=== PATIENT | male | born 1960 | race African-American/Black ===

== ENCOUNTER 2019-02-11 07:41 | Emergency (ER) | payer OTHER ==
[~2019-02-11] VITALS: Ht 165.1 cm; Wt 55.3 kg
[~2019-02-11 07:41] MED LIST: ASPIR 8181 MG ORAL; ATORVASTATIN CA20 MG ORAL; FERROUS SU15 MG/1 M1 PO; IBUPROFEN600 MG ORAL; KEPPRA500 M4 ORAL
--- NOTE | 2019-02-11 07:50 | NUR ---
ED Nurse Note: Patient walked into ED with a walker with his sister, c/o rectal bleeding since 2-3 days ago and leg/knee cramping like pain. patient's sister reports bright red blood in the stool. patient was seen by Rickie yesterday, because "patient's leg gave up and had a seizure at a bus stop." patient states he is taking his seizure medications regularly. Dr. Browning by the bedside
[2019-02-11] MEDS ORDERED: NORVASC10 MG ORAL (07:54)
[2019-02-11] MEDS ORDERED: HYDROCHLOROTHIA25 MG ORAL (07:54)
[2019-02-11] MEDS ORDERED: LEVETIRACETAM1000 MG ORAL (07:54)
--- NOTE | 2019-02-11 07:55 | NUR ---
ED Nurse Note: seizure pad applied, patient is on the monitor.
[2019-02-11 07:57] VITALS: BP 128/76
--- NOTE | 2019-02-11 08:15 | NUR ---
ED Nurse Note: april called and spoke with Jing for the KUB
[2019-02-11] MEDS ORDERED: COLACE100 MG ORAL (09:15)
[2019-02-11] MEDS ORDERED: ANUSOL-HC25 MG RECTAL (09:15)
[2019-02-11 09:32] VITALS: BP 128/76
--- NOTE | 2019-02-11 09:32 | NUR ---
ER DISCHARGE NOTE: Patient is cleared to be discharged per ERMD Dr. Browning, pt is aox4, on room air, with stable vital signs. pt was given dc and prescription instructions, pt was able to verbalize understanding, pt id band removed without complications. pt is able to ambulate with steady gait. pt took all belongings.
--- NOTE | 2019-02-11 09:52 | Emergency Room Report ---
History of Present Illness General Chief Complaint: Seizure Source: Patient, Family Member Present Illness HPI 58-year-old male presents ED for evaluation. Patient brought in by sister for evaluation. States that yesterday patient had a seizure. History of seizures and takes Keppra. States that he fell and hit his head. Was taken to [facility] ER by EMS. Also states that patient's been experiencing some rectal bleeding for the last few days. Patient was evaluated yesterday [facility] and discharged. Sister states that she does not understand why patient was discharged and came here to understand why. States that she does not know the diagnosis. States that she has discharge papers in her car. Patient states that he is compliant with his seizure meds but he believes that the CT head was negative. Patient describes straining with bowel movements. Denies any abdominal pain. Denies taking blood thinners. No other aggravating relieving factors. Denies any other associated symptoms Allergies: Coded Allergies: PENICILLINS (Verified Allergy, Unknown, 07/04/16) Patient History Past Medical History: HTN, seizures Past Surgical History: none Pertinent Family History: none Social History: Denies: smoking, alcohol use, drug use Immunizations: UTD Reviewed Nursing Documentation: PMH: Agreed; PSxH: Agreed Nursing Documentation-PMH Hx Hypertension: Yes Hx Seizures: Yes Review of Systems All Other Systems: negative except mentioned in HPI Physical Exam Vital Signs Date Time Temp Pulse Resp B/P (MAP) Pulse Ox O2 Delivery O2 Flow Rate FiO2 02/11/19 07:44 99.0 78 19 152/85 95 Room Air Sp02 EP Interpretation: reviewed, normal General Appearance: no apparent distress, alert, GCS 15, non-toxic Head: normocephalic, atraumatic Eyes: bilateral eye normal inspection, bilateral eye PERRL ENT: hearing grossly normal, normal pharynx, no angioedema, normal voice Neck: full range of motion, supple/symm/no masses Respiratory: chest non-tender, lungs clear, normal breath sounds, speaking full sentences Cardiovascular #1: regular rate, rhythm, no edema Cardiovascular #2: 2+ carotid (R), 2+ carotid (L), 2+ radial (R), 2+ radial (L) , 2+ dorsalis pedis (R), 2+ dorsalis pedis (L) Gastrointestinal: normal bowel sounds, non tender, soft, non-distended, no guarding, no rebound Rectal: hemorrhoids Genitourinary: normal inspection, no CVA tenderness Musculoskeletal: back normal, gait/station normal, normal range of motion, non- tender Neurologic: alert, oriented x3, responsive, motor strength/tone normal, sensory intact, speech normal Psychiatric: judgement/insight normal, memory normal, mood/affect normal, no suicidal/homicidal ideation Reflexes: 3+ bicep (R), 3+ bicep (L), 3+ tricep (R), 3+ tricep (L), 3+ knee (R) , 3+ knee (L) Skin: normal color, no rash, warm/dry, well hydrated Lymphatic: no adenopathy Medical Decision Making Diagnostic Impression: Primary Impression: Constipation Qualified Codes: K59.00 - Constipation, unspecified Additional Impressions: Hemorrhoids Qualified Codes: K64.9 - Unspecified hemorrhoids Seizure disorder ER Course Hospital Course 58-year-old male presents to ED status post seizure yesterday. Also complaining of blood in stool. Seen yesterday at [facility] ER Differential diagnosis includes-appendicitis, cholecystitis, small bowel obstruction, gastritis, Clinical course Patient placed on stretcher. After initial history, physical exam reveals an elderly male in no acute distress. no focal neurological deficits. Cranial nerves II through XII intact. Full range of motion in all extremities. On rectal exam there appears to be fullness but no gross blood. Sister states that patient is a very difficult IV stick and she would prefer not to repeat labs at this time. I explained that we can avoid lab work if she could provide the discharge papers Damian. . brought discharge paperwork which documents a diagnosis of seizure and mild thrombocytopenia. Patient had lab work and CT head which were within normal limits I performed a KUB here which shows significant fecal impaction. I believe his symptoms are related to constipation and hemorrhoids. I discussed these findings with the patient and sister. I do not believe repeat imaging or lab work is indicated at this time. I believe this can be treated in an outpatient setting. We will discharge with stool softeners and Anusol suppository. Patient states he has a PMD. I feel this is a highly complex case requiring extensive working including EKG/ Rhythm strip, Xray/CT/US, Blood/urine lab work, repeat exams while in ED, and administration of strong opiates/narcotics for pain control, admission to hospital or close patient follow up. Diagnosis - constipation, hemorrhoids, seizure disorder Stable and discharged to home with Rx rachel-jyoti, Colace. instructed on high- fiber diet. Followup with PMD. Return to ED if symptoms recur or worsen Other X-Ray Diagnostic Results Other X-Ray Diagnostic Results : X-Ray ordered: KUB # of Views/Limited Vs Complete: 1 View Indication: Pain EP Interpretation: Yes Interpretation: nonspecific bowel gas, no sbo, other - fecal impaction noted \ Impression: Other - constipation Electronically Signed by: Electronically signed by Sd Browning MD Last Vital Signs Date Time Temp Pulse Resp B/P (MAP) Pulse Ox O2 Delivery O2 Flow Rate FiO2 02/11/19 09:32 99.0 78 19 128/76 98 Room Air Status: improved Disposition: HOME, SELF-CARE Condition: Stable Scripts Hydrocortisone Acetate* (ANUSOL-HC*) 25 Mg Supp.rect 1 SUPP RECTAL TWICE A DAY, #10 SUPP Prov: Sd Browning MD 02/11/19 Docusate Sodium* (COLACE*) 100 Mg Capsule 100 MG ORAL THREE TIMES A DAY, #30 CAP Prov: Sd Browning MD 02/11/19 Referrals: NON PHYSICIAN (PCP) Gisel Zhao [facility] Patient Instructions: Hemorrhoids, [id number] Sd Browning MD Feb 11, 2019 09:52
--- NOTE | 2019-02-11 11:18 | Diagnostic Imaging Report ---
Indication: Abdominal pain Technique: Supine view of the abdomen Comparison: none Findings: Bowel gas pattern is unremarkable. No unusual masses or calcifications. Impression: No acute process
== END 2019-02-11 09:32 | disposition home or self-care (01) ==
LOC: EMR 08:20
DX: K59.00 Constipation, unspecified (principal); D64.9 Anemia, unspecified; G40.909 Epilepsy, unspecified, not intractable, without status epilepticus; Z88.0 Allergy status to penicillin; I10 Essential (primary) hypertension
CPT/HCPCS: 74018; 99283

== ENCOUNTER 2019-06-10 09:05 | Inpatient (IN) | payer OTHER ==
[2019-06-10] VITALS (11 sets, daily range): BP systolic 101–156; BP diastolic 70–97
[~2019-06-10] VITALS: Ht 165.1 cm; Wt 54.4 kg
[~2019-06-10 09:05] MED LIST changes: +ANUSOL-HC25 MG RECTAL; +COLACE100 MG ORAL; +HYDROCHLOROTHIA25 MG ORAL; +LEVETIRACETAM1000 MG ORAL; +NORVASC10 MG ORAL
--- NOTE | 2019-06-10 09:06 | Emergency Room Report ---
History of Present Illness General Chief Complaint: Dyspnea/Respdistress Source: Patient, Medical Record, EMS Present Illness HPI Patient is a 59-year-old male brought in by EMS after increased difficulty with breathing. Patient had been having onset of symptoms approximately 2:00 this morning. He reports having prior history of pericarditis. Patient was brought in by EMS and was given multiple doses of nitroglycerin as well as aspirin. He reportedly has prior history of seizure disorder. He states he is taken his seizure medication this morning. Patient denies any chest discomfort. He reports having some increased cough with yellow sputum. He denies any fever.Denies being a smoker. Allergies: Coded Allergies: PENICILLINS (Verified Allergy, Unknown, 07/04/16) Patient History Past Medical History: see triage record Reviewed Nursing Documentation: PMH: Agreed; PSxH: Agreed Nursing Documentation-PMH Past Medical History: No History, Except For Hx Hypertension: Yes Hx Asthma: Yes Hx Diabetes: Yes Hx Cerebrovascular Accident: Yes Hx Seizures: Yes Review of Systems All Other Systems: negative except mentioned in HPI Physical Exam Vital Signs Date Time Temp Pulse Resp B/P (MAP) Pulse Ox O2 Delivery O2 Flow Rate FiO2 06/10/19 08:58 98.1 131 20 100/49 (66) 98 Non-Rebreather 15.0 General Appearance: alert, moderate distress, thin, Chronically Ill Eyes: bilateral eye PERRL ENT: hearing grossly normal, normal voice Neck: full range of motion Respiratory: respiratory distress, accessory muscle use, wheezing Cardiovascular #1: tachycardia Gastrointestinal: normal inspection, soft Musculoskeletal: normal inspection Neurologic: normal inspection, alert, oriented x3, responsive, butter printer III-XII nml as tested Psychiatric: normal inspection Skin: other - generalized eczematous rash Procedures Intubation Intubation : Consent: Emergent Time of Intubation: 12:02 Intubation Method: orotracheal Tube Size (cm): 8.0 Medications: Rocuronium, Other - ativan Breath Sounds after Intubation: equal Intubation Complications: no complications Post Intubation Xray: Yes Attempts: One Patient Tolerated: Well Complications: None Progress floppy epiglottis which appears to be partially obstructing airway. Medical Decision Making Diagnostic Impression: Primary Impression: Seizure disorder Additional Impressions: Acute hypercapnic respiratory failure Lactic acid acidosis COPD exacerbation Epileptic seizure, generalized ER Course Patient presented for shortness of breath. Differential included but was not limited to anemia, pneumonia, pneumothorax, myocardial infarction, pericardial effusion, congestive heart failure, acidosis because of complexity of patient's case laboratory testing and imaging studies were ordered.Patient was noted to have increased shortness of breath and was noted to have some initial respiratory difficulty. This. Have gradual worsening over time. Patient subsequently decompensated and was intubated after increased stridor and difficulty with respirations. Patient will be admitted to the hospital for further monitoring and evaluation. Patient was noted to have some shaking movements and possibly some seizure activity. He had prior history of seizure disorder. Patient was noted to be hypomagnesemic and was given IV magnesium. Patient was started on IV Ativan. Patient was given IV Steroids. Patient will be admitted to Dr. Rodriguez due to panel physician. Labs Test 06/10/19 09:10 06/10/19 10:05 06/10/19 11:14 White Blood Count 8.2 K/UL (4.8-10.8) Red Blood Count 5.91 M/UL (4.70-6.10) Hemoglobin 16.8 G/DL (14.2-18.0) Hematocrit 52.1 % (42.0-52.0) Mean Corpuscular Volume 88 FL (80-99) Mean Corpuscular Hemoglobin 28.4 PG (27.0-31.0) Mean Corpuscular Hemoglobin Concent 32.2 G/DL (32.0-36.0) Red Cell Distribution Width 12.6 % (11.6-14.8) Platelet Count 181 K/UL (150-450) Mean Platelet Volume 8.1 FL (6.5-10.1) Neutrophils (%) (Auto) % (45.0-75.0) Lymphocytes (%) (Auto) % (20.0-45.0) Monocytes (%) (Auto) % (1.0-10.0) Eosinophils (%) (Auto) % (0.0-3.0) Basophils (%) (Auto) % (0.0-2.0) Differential Total Cells Counted 100 Neutrophils % (Manual) 89 % (45-75) Lymphocytes % (Manual) 7 % (20-45) Monocytes % (Manual) 4 % (1-10) Eosinophils % (Manual) 0 % (0-3) Basophils % (Manual) 0 % (0-2) Band Neutrophils 0 % (0-8) Platelet Estimate Adequate Platelet Morphology Normal Red Blood Cell Morphology Normal Sodium Level 134 MMOL/L (136-145) Potassium Level 3.9 MMOL/L (3.5-5.1) Chloride Level 99 MMOL/L (98-107) Carbon Dioxide Level 21 MMOL/L (21-32) Anion Gap 14 mmol/L (5-15) Blood Urea Nitrogen 16 mg/dL (7-18) Creatinine 1.3 MG/DL (0.55-1.30) Estimat Glomerular Filtration Rate > 60 mL/min (>60) Glucose Level 161 MG/DL (74-106) Calcium Level 10.0 MG/DL (8.5-10.1) Phosphorus Level 3.2 MG/DL (2.5-4.9) Magnesium Level 1.3 MG/DL (1.8-2.4) Total Bilirubin 0.7 MG/DL (0.2-1.0) Aspartate Amino Transf (AST/SGOT) 28 U/L (15-37) Alanine Aminotransferase (ALT/SGPT) 26 U/L (12-78) Alkaline Phosphatase 138 U/L (46-116) Total Creatine Kinase 333 U/L (26-308) Creatine Kinase MB 2.6 NG/ML (0.0-3.6) Creatine Kinase MB Relative Index 0.7 Troponin I 0.028 ng/mL (0.000-0.056) Pro-B-Type Natriuretic Peptide < 5 pg/mL (0-125) Total Protein 9.5 G/DL (6.4-8.2) Albumin 4.5 G/DL (3.4-5.0) Globulin 5.0 g/dL Urine Color Pale yellow Urine Appearance Clear Urine pH 5 (4.5-8.0) Urine Specific [place] 1.015 (1.005-1.035) Urine Protein 3+ (NEGATIVE) Urine Glucose (UA) Negative (NEGATIVE) Urine Ketones Negative (NEGATIVE) Urine Blood 1+ (NEGATIVE) Urine Nitrite Negative (NEGATIVE) Urine Bilirubin Negative (NEGATIVE) Urine Urobilinogen Normal MG/DL (0.0-1.0) Urine Leukocyte Esterase 1+ (NEGATIVE) Urine RBC 0-2 /HPF (0 - 0) Urine WBC 0-2 /HPF (0 - 0) Urine Squamous Epithelial Cells Few /LPF (NONE/OCC) Urine Bacteria Few /HPF (NONE) Lactic Acid Level 2.60 mmol/L (0.66-2.22) EKG Diagnostic Results Rate: tachycardiac Rhythm: NSR ST Segments: no acute changes Last Vital Signs Date Time Temp Pulse Resp B/P (MAP) Pulse Ox O2 Delivery O2 Flow Rate FiO2 06/10/19 08:58 98.1 131 20 100/49 (66) 98 Non-Rebreather 15.0 Status: unchanged Disposition: ADMITTED INPATIENT Jesus Kay MD Jun 10, 2019 09:06
--- NOTE | 2019-06-10 09:10 | NUR ---
ED Nurse Note: pt was brought in by ambulance from home c/o difficulty breathing started 2am this morning, pt stated he started to feel bad earlier and had a bad cough and was exaserbating. four 0.4nitroglyceryn sublingual given on the field and 1 albuterol breathing tx, pt denies chest pain. pt stated he felt better after the breathing treatment, pt noted to have hr 121. pt stated he has pericarditis and was taking 5 meds for it but unble to tell the name of the medication. ermd on bedside, RT on bedside giving nebulization. blood sent to lab, pt unbale to give urine at the moment. will continue to monitor.
[2019-06-10] MEDS ORDERED: Albuterol/Ipratropium 3ml neb HHN ONE ×2 (09:15→11:30)
--- NOTE | 2019-06-10 09:40 | Diagnostic Imaging Report ---
Indication: Short of breath Technique: One view of the chest Comparison: 07/06/2010 Findings: Lungs and pleural spaces are clear. Heart size is normal . No significant interim change Impression: No acute process
[2019-06-10 09:52] LABS: HEMATOCRIT 52.1 % (42.0-52.0); HEMOGLOBIN 16.8 G/DL (14.2-18.0); MEAN CORPUSCULAR VOLUME 88 FL (80-99); PLATELET COUNT 181 K/UL (150-450); RED BLOOD COUNT 5.91 M/UL (4.70-6.10); RED CELL DISTRIBUTION WIDTH 12.6 % (11.6-14.8); WHITE BLOOD COUNT 8.2 K/UL (4.8-10.8)
[2019-06-10] MEDS ORDERED: Azithromycin 500 MG in D5W 275 ML IVPB ONE (10:15)
[2019-06-10 10:23] LABS: APPEARANCE,URINE CLEAR; BILIRUBIN, URINE NEGATIVE (NEGATIVE); COLOR,URINE PALE YELLOW; GLUCOSE, URINE (UA) NEGATIVE (NEGATIVE); KETONES,URINE NEGATIVE (NEGATIVE); LEUKOCYTE ESTERASE ,URINE 1+ (NEGATIVE); NITRITE,URINE NEGATIVE (NEGATIVE); PH,URINE 5 (4.5-8.0); PROTEIN,URINE 3+ (NEGATIVE); UROBILINOGEN,URINE NORMAL MG/DL (0.0-1.0)
[2019-06-10 10:25] LABS: ALANINE AMINOTRANSFERASE 26 U/L (12-78); ALKALINE PHOSPHATASE 138 U/L (46-116); ANION GAP 14 mmol/L (5-15); ASPARTATE AMINO TRANSFERASE 28 U/L (15-37); BILIRUBIN,TOTAL 0.7 MG/DL (0.2-1.0); CARBON DIOXIDE 21 MMOL/L (21-32); CHLORIDE 99 MMOL/L (98-107); CKMB 2.6 NG/ML (0.0-3.6); CREATINE KINASE 333 U/L (26-308); PHOSPHORUS 3.2 MG/DL (2.5-4.9); POTASSIUM 3.9 MMOL/L (3.5-5.1); SODIUM 134 MMOL/L (136-145)
[2019-06-10 10:32] LABS: ALBUMIN 4.5 G/DL (3.4-5.0); BLOOD UREA NITROGEN 16 mg/dL (7-18); CREATININE 1.3 MG/DL (0.55-1.30)
[2019-06-10] MEDS ORDERED: Albuterol/Ipratropium 3ml neb ONE (11:28)
[2019-06-10] MEDS ORDERED: Levalbuterol Inh UD 1.25mg/0.5ml HHN ONE (11:45)
--- NOTE | 2019-06-10 11:45 | NUR ---
CONDITION CHANGE: pt complains of shortness of breath after urinating on the urinal. low 02 sat was noticed, pt is on sitting position, wheezing noted, ermd made aware and called respiratory therapist for breathing treatment.
[2019-06-10] MEDS ORDERED: LORazepam Inj 2mg/ml 1ml ONE (11:47)
--- NOTE | 2019-06-10 11:48 | NUR ---
ED Nurse Note: respiratory therapist on bedside giving nebulization, pt started to have seizure, pt 02 saturation on 89%. ermd made aware
--- NOTE | 2019-06-10 11:50 | NUR ---
ED Nurse Note: ermd verbally ordered ativan 1mg and given iv. pt stopped seizing, unable to answer question. respiratory therapist on bedside giving nebulization.
--- NOTE | 2019-06-10 11:58 | NUR ---
ED Nurse Note: ermd on bedside, rt on bedside. ermd verbally ordered rocuronium 50mg iv and was given by Rama RN, ermd inserted ET tube size 7mm on first attempt,24cm on the lower lip on the right side.wheezing auscultated on pt bilateral lungs. pt unconscious. pt HR 127.
--- NOTE | 2019-06-10 12:00 | NUR ---
ED Nurse Note: xray at bedside checking for ET placement
--- NOTE | 2019-06-10 12:01 | NUR ---
ED Nurse Note: mag SO4 ivpb started on pt right forearm iv.
[2019-06-10] MEDS ORDERED: Solu-MEDROL 125mg Inj IVP ONE (12:15)
[2019-06-10] MEDS ORDERED: LORazepam Inj 2mg/ml 1ml IV ONE ×2 (12:30→13:45)
[2019-06-10] MEDS ORDERED: Milk of Magnesia 30ml Ud ORAL PRN (13:15)
[2019-06-10] MEDS ORDERED: Cefepime HCl 2 GM in D5W 110 ML IV SCH (13:15)
[2019-06-10] MEDS ORDERED: Miralax 17gm pkt ORAL PRN (13:15)
[2019-06-10] MEDS ORDERED: Nitroglycerin Subl 0.4mg tab SL PRN (13:15)
[2019-06-10] MEDS ORDERED: Morphine Sulfate 4mg/ml Inj (IV USE ONLY) IVP PRN (13:15)
[2019-06-10] MEDS ORDERED: Morphine Sulfate 2mg/ml Inj(IV/IM USE ONLY) IVP PRN ×2 (13:15)
[2019-06-10] MEDS ORDERED: Mylanta II UD 30ml ORAL PRN (13:15)
[2019-06-10] MEDS ORDERED: Zolpidem 5mg tab ORAL PRN (13:15)
[2019-06-10] MEDS ORDERED: LORazepam Inj 2mg/ml 1ml IV PRN (13:15)
[2019-06-10] MEDS ORDERED: Acetaminophen 650 MG SUPP RECTAL PRN ×2 (13:15)
--- NOTE | 2019-06-10 13:29 | NUR ---
ED Nurse Note: recieved call from Lyly from respiratory regarding abg, pH 7.1-8,CO2 75.7 pO2 494.6 Hco3 24.5, ermd dr Matti chakraborty in ED and change the settings of the vent to, fio2 @60%, tidaL volume 650, Ac 28. pt still unconscious.
--- NOTE | 2019-06-10 13:40 | Pulmonolgy Critical Care Note ---
Critical Care - Asmt/Plan Problems: (1) Bipolar 1 disorder (2) HTN (hypertension) (3) CAD (coronary artery disease) (4) Lactic acid acidosis (5) COPD exacerbation (6) Acute hypercapnic respiratory failure (7) Ventilator dependence (8) Seizure disorder Assessment/Plan: Continue ventilatory support --> Change to AC 26 VC 600 Decrease FiO2 and PEEP to keep SaO2 > 90% RTC and PRN DUOnebs SM 40 IV BID and taper Continue Cefepime/Azithro for now, can likely D/C Cefepime in am Continue Keppra EEG Neuro eval IVF Trend LA If remains on vent tomm would start enteral feeds TTE Hep SQ FC Notes Reviewed: other - ER MD Discussed with: nurses, consultants, other - PMD Critical Care - Objective Last 24 Hour Vital Signs Date Time Temp Pulse Resp B/P (MAP) Pulse Ox O2 Delivery O2 Flow Rate FiO2 06/10/19 13:01 124 14 156/89 100 Room Air 06/10/19 12:00 128 14 119/82 100 Mechanical Ventilator 100 06/10/19 11:58 100 06/10/19 11:36 125 22 88 Nasal Cannula 2.0 28 06/10/19 09:29 112 22 100 Room Air 21 06/10/19 09:19 119 19 100 Non-Rebreather 15.0 100 06/10/19 09:19 119 19 100 Non-Rebreather 15.0 100 06/10/19 09:10 121 20 Non-Rebreather 15.0 06/10/19 09:10 98.1 121 20 133/72 98 Non-Rebreather 15.0 06/10/19 08:58 98.1 131 20 100/49 (66) 98 Non-Rebreather 15.0 Status: sedated - on vent Condition: critical HEENT: atraumatic, normocephalic Neck: full ROM Lungs: clear - but distant Heart: HR/BP stable Abdomen: soft, non-tender, active bowel sounds Extremities: no C/C/E Blood Sugars: BS controlled Critical Care - Subjective ROS Limited/Unobtainable: Yes ICU Day: 1 Intubation Day: 1 Interval Events: 59 M h/o bipolar DO, Sz DO, COPD, ? pericarditis in the past, CAD, prior OK, gout and dementia p/w SOB and hypoxemia, inc WOB in the ER, intubated, currently on AC 16 VC 500 ---> 7.13/76/494//, no visible distress, sedated on vent. + LA + GTC Sz in ER. S/P SM 125 in ER. No other hx obtainable. CS- link records reviewed as well. Condition: critical IV Access: peripheral EKG Rhythm: Sinus Tachycardia FI02: 100 Vent Support Breath Rate: 14 Vent Support Mode: AC Vent Tidal Volume: 500 Sputum Amount: None PEEP: 5.0 Secretions: None Fluids: SLIV Subjective: HELENE CXR: NAD ET-Tube: 7.0 ET Position: 24 Labs: Laboratory Tests Test 06/10/19 09:10 06/10/19 10:05 06/10/19 11:14 06/10/19 13:05 White Blood Count 8.2 K/UL (4.8-10.8) Red Blood Count 5.91 M/UL (4.70-6.10) Hemoglobin 16.8 G/DL (14.2-18.0) Hematocrit 52.1 % (42.0-52.0) H Mean Corpuscular Volume 88 FL (80-99) Mean Corpuscular Hemoglobin 28.4 PG (27.0-31.0) Mean Corpuscular Hemoglobin Concent 32.2 G/DL (32.0-36.0) Red Cell Distribution Width 12.6 % (11.6-14.8) Platelet Count 181 K/UL (150-450) Mean Platelet Volume 8.1 FL (6.5-10.1) Neutrophils (%) (Auto) % (45.0-75.0) Lymphocytes (%) (Auto) % (20.0-45.0) Monocytes (%) (Auto) % (1.0-10.0) Eosinophils (%) (Auto) % (0.0-3.0) Basophils (%) (Auto) % (0.0-2.0) Differential Total Cells Counted 100 Neutrophils % (Manual) 89 % (45-75) H Lymphocytes % (Manual) 7 % (20-45) L Monocytes % (Manual) 4 % (1-10) Eosinophils % (Manual) 0 % (0-3) Basophils % (Manual) 0 % (0-2) Band Neutrophils 0 % (0-8) Platelet Estimate Adequate Platelet Morphology Normal Red Blood Cell Morphology Normal Sodium Level 134 MMOL/L (136-145) L Potassium Level 3.9 MMOL/L (3.5-5.1) Chloride Level 99 MMOL/L (98-107) Carbon Dioxide Level 21 MMOL/L (21-32) Anion Gap 14 mmol/L (5-15) Blood Urea Nitrogen 16 mg/dL (7-18) Creatinine 1.3 MG/DL (0.55-1.30) Estimat Glomerular Filtration Rate > 60 mL/min (>60) Glucose Level 161 MG/DL (74-106) H Lactic Acid Level 3.50 mmol/L (0.4-2.0) H 2.60 mmol/L (0.66-2.22) H Calcium Level 10.0 MG/DL (8.5-10.1) Phosphorus Level 3.2 MG/DL (2.5-4.9) Magnesium Level 1.3 MG/DL (1.8-2.4) L Total Bilirubin 0.7 MG/DL (0.2-1.0) Aspartate Amino Transf (AST/SGOT) 28 U/L (15-37) Alanine Aminotransferase (ALT/SGPT) 26 U/L (12-78) Alkaline Phosphatase 138 U/L (46-116) H Total Creatine Kinase 333 U/L (26-308) H Creatine Kinase MB 2.6 NG/ML (0.0-3.6) Creatine Kinase MB Relative Index 0.7 Troponin I 0.028 ng/mL (0.000-0.056) Pro-B-Type Natriuretic Peptide < 5 pg/mL (0-125) Total Protein 9.5 G/DL (6.4-8.2) H Albumin 4.5 G/DL (3.4-5.0) Globulin 5.0 g/dL Urine Color Pale yellow Urine Appearance Clear Urine pH 5 (4.5-8.0) Urine Specific [place] 1.015 (1.005-1.035) Urine Protein 3+ (NEGATIVE) H Urine Glucose (UA) Negative (NEGATIVE) Urine Ketones Negative (NEGATIVE) Urine Blood 1+ (NEGATIVE) H Urine Nitrite Negative (NEGATIVE) Urine Bilirubin Negative (NEGATIVE) Urine Urobilinogen Normal MG/DL (0.0-1.0) Urine Leukocyte Esterase 1+ (NEGATIVE) H Urine RBC 0-2 /HPF (0 - 0) H Urine WBC 0-2 /HPF (0 - 0) Urine Squamous Epithelial Cells Few /LPF (NONE/OCC) Urine Bacteria Few /HPF (NONE) Arterial Blood pH 7.128 (7.350-7.450) Arterial Blood Partial Pressure CO2 75.7 mmHg (35.0-45.0) *H Arterial Blood Partial Pressure O2 494.6 mmHg (75.0-100.0) H Arterial Blood HCO3 24.5 mmol/L (22.0-26.0) Arterial Blood Oxygen Saturation 99.6 % (95-100) Arterial Blood Base Excess -6.5 (-2-2) L Bartolo Test Positive Agapito Chino MD Jun 10, 2019 13:40
--- NOTE | 2019-06-10 13:44 | NUR ---
ED Nurse Note: paged dr Chino to inform re pt HR 145, pvc 32. pt starting to wake up
--- NOTE | 2019-06-10 13:55 | NUR ---
ED Nurse Note: iv ativan given as per ermd order.
--- NOTE | 2019-06-10 14:20 | NUR ---
ED Nurse Note: registered veterinary technician on at bedside doing 2Dechocardiogram.
--- NOTE | 2019-06-10 14:41 | Diagnostic Imaging Report ---
Indication: Post endotracheal tube placement Technique: One view of the chest Comparison: 3 hours earlier Findings: Interim endotracheal intubation, endotracheal tube tip projecting approximately 3 cm above the kendrick. The lungs pleural spaces are clear. The heart size is normal. There is no significant interim change Impression: Satisfactory endotracheal intubation No significant change otherwise
--- NOTE | 2019-06-10 15:19 | NUR ---
ED Nurse Note: dr maher on bedside ordered to started ivf Ns to run 100ml/hour to start here in the ed. pharmacy made aware and carried out.
--- NOTE | 2019-06-10 15:40 | NUR ---
ED Nurse Note: pt was admitted to the hospital.report was given to Elisa sanchez.
--- NOTE | 2019-06-10 15:52 | NUR ---
NURSE NOTES: RECEIVED PATIENT FROM ER VIA HOSPITAL BED. REPORT GIVEN BY YAKELIN SIMEON. PATIENT IS AWAKE AND RESPONSIVE AND RESTLESS. ORALLY INTUBATED. ETT 7.5 AT 24CM LIP LINE. VENT SETTINGS OF AC 28, TV 650, FiO2 60%, PEEP 5. NO SIGNS OF DISTRESS OF THE MOMENT. IVS ON L FA G20, R FA G20 WITH IVF RUNNING NS AT 100ML/HR. PATIENT KEPT CLEAN AND DRY. THOROUGH SKIN ASSESSMENT DONE. SKIN IS INTACT. ORIENTED TO ROOM. CALL LIGHT WITHIN REACH. SIDE RAILS UP AND PADDED. BED AT LOWEST POSITION. WILL CONTINUE TO MONITOR.
--- NOTE | 2019-06-10 16:15 | History and Physical ---
History of Present Illness General Date patient seen: Jun 10, 2019 Reason for Hospitalization: Dyspnea/Respdistress Present Illness HPI Patient is intubated. History obtained through chart and ED providers Patient is a 59-year-old male brought in by EMS after increased difficulty with breathing. Patient had been having onset of symptoms approximately 2:00 this morning. He reports having prior history of pericarditis. Patient was brought in by EMS and was given multiple doses of nitroglycerin as well as aspirin. He reportedly has prior history of seizure disorder. He states he is taken his seizure medication this morning. Patient denies any chest discomfort. He reports having some increased cough with yellow sputum. He denies any fever.Denies being a smoker. While in the ED patient acutely became hypoxic and required intubation. Bystanders state he did not have active wheezing at the time. Allergies: Coded Allergies: PENICILLINS (Verified Allergy, Unknown, 07/04/16) Medication History Scheduled Amlodipine Besylate (Norvasc), 10 MG ORAL DAILY, (Reported) Aspirin* (Aspir 81*), 81 MG ORAL DAILY, (Reported) Atorvastatin Calcium* (Atorvastatin Calcium*), Unknown Dose ORAL BEDTIME, ( Reported) Docusate Sodium* (Colace*), 100 MG ORAL THREE TIMES A DAY Hydrochlorothiazide* (Hydrochlorothiazide*), 25 MG ORAL DAILY, (Reported) Hydrocortisone Acetate* (Anusol-Hc*), 1 SUPP RECTAL TWICE A DAY Levetiracetam (Keppra), Unknown Dose ORAL EVERY 12 HOURS, (Reported) Levetiracetam (Keppra), 500 MG ORAL EVERY 12 HOURS Levetiracetam (Levetiracetam), 1,000 MG ORAL TWICE A DAY, (Reported) Scheduled PRN Ibuprofen* (Motrin*), 600 MG ORAL Q8H PRN for For Pain Miscellaneous Medications Ferrous Sulfate (Ferrous Sulfate), Unknown Dose PO, (Reported) Patient History Limited by: medical condition History Provided By: Medical Record, EMS Healthcare decision maker N Resuscitation status Advanced Directive on File Review of Systems ROS Narrative UTO Physical Exam Last 24 Hour Vital Signs Date Time Temp Pulse Resp B/P (MAP) Pulse Ox O2 Delivery O2 Flow Rate FiO2 06/10/19 14:55 113 28 104/84 100 Room Air 06/10/19 14:21 117 28 117/81 100 Mechanical Ventilator 60 06/10/19 13:33 127 28 101/70 100 Room Air 06/10/19 13:32 60 06/10/19 13:28 136 29 60 06/10/19 13:01 124 14 156/89 100 Room Air 06/10/19 12:00 128 14 119/82 100 Mechanical Ventilator 100 06/10/19 11:58 128 14 100 06/10/19 11:58 100 06/10/19 11:55 122 24 99 06/10/19 11:46 119 24 98 Nasal Cannula 2.0 28 06/10/19 11:46 119 24 98 Nasal Cannula 2.0 28 06/10/19 11:45 119 22 99 Room Air 21 06/10/19 11:36 125 22 88 Nasal Cannula 2.0 28 06/10/19 09:29 112 22 100 Room Air 21 06/10/19 09:19 119 19 100 Non-Rebreather 15.0 100 06/10/19 09:19 119 19 100 Non-Rebreather 15.0 100 06/10/19 09:10 121 20 Non-Rebreather 15.0 06/10/19 09:10 98.1 121 20 133/72 98 Non-Rebreather 15.0 06/10/19 08:58 98.1 131 20 100/49 (66) 98 Non-Rebreather 15.0 Laboratory Tests Test 06/10/19 09:10 06/10/19 10:05 06/10/19 11:14 06/10/19 13:05 White Blood Count 8.2 K/UL (4.8-10.8) Red Blood Count 5.91 M/UL (4.70-6.10) Hemoglobin 16.8 G/DL (14.2-18.0) Hematocrit 52.1 % (42.0-52.0) H Mean Corpuscular Volume 88 FL (80-99) Mean Corpuscular Hemoglobin 28.4 PG (27.0-31.0) Mean Corpuscular Hemoglobin Concent 32.2 G/DL (32.0-36.0) Red Cell Distribution Width 12.6 % (11.6-14.8) Platelet Count 181 K/UL (150-450) Mean Platelet Volume 8.1 FL (6.5-10.1) Neutrophils (%) (Auto) % (45.0-75.0) Lymphocytes (%) (Auto) % (20.0-45.0) Monocytes (%) (Auto) % (1.0-10.0) Eosinophils (%) (Auto) % (0.0-3.0) Basophils (%) (Auto) % (0.0-2.0) Differential Total Cells Counted 100 Neutrophils % (Manual) 89 % (45-75) H Lymphocytes % (Manual) 7 % (20-45) L Monocytes % (Manual) 4 % (1-10) Eosinophils % (Manual) 0 % (0-3) Basophils % (Manual) 0 % (0-2) Band Neutrophils 0 % (0-8) Platelet Estimate Adequate Platelet Morphology Normal Red Blood Cell Morphology Normal Sodium Level 134 MMOL/L (136-145) L Potassium Level 3.9 MMOL/L (3.5-5.1) Chloride Level 99 MMOL/L (98-107) Carbon Dioxide Level 21 MMOL/L (21-32) Anion Gap 14 mmol/L (5-15) Blood Urea Nitrogen 16 mg/dL (7-18) Creatinine 1.3 MG/DL (0.55-1.30) Estimat Glomerular Filtration Rate > 60 mL/min (>60) Glucose Level 161 MG/DL (74-106) H Lactic Acid Level 3.50 mmol/L (0.4-2.0) H 2.60 mmol/L (0.66-2.22) H Calcium Level 10.0 MG/DL (8.5-10.1) Phosphorus Level 3.2 MG/DL (2.5-4.9) Magnesium Level 1.3 MG/DL (1.8-2.4) L Total Bilirubin 0.7 MG/DL (0.2-1.0) Aspartate Amino Transf (AST/SGOT) 28 U/L (15-37) Alanine Aminotransferase (ALT/SGPT) 26 U/L (12-78) Alkaline Phosphatase 138 U/L (46-116) H Total Creatine Kinase 333 U/L (26-308) H Creatine Kinase MB 2.6 NG/ML (0.0-3.6) Creatine Kinase MB Relative Index 0.7 Troponin I 0.028 ng/mL (0.000-0.056) Pro-B-Type Natriuretic Peptide < 5 pg/mL (0-125) Total Protein 9.5 G/DL (6.4-8.2) H Albumin 4.5 G/DL (3.4-5.0) Globulin 5.0 g/dL Urine Color Pale yellow Urine Appearance Clear Urine pH 5 (4.5-8.0) Urine Specific [place] 1.015 (1.005-1.035) Urine Protein 3+ (NEGATIVE) H Urine Glucose (UA) Negative (NEGATIVE) Urine Ketones Negative (NEGATIVE) Urine Blood 1+ (NEGATIVE) H Urine Nitrite Negative (NEGATIVE) Urine Bilirubin Negative (NEGATIVE) Urine Urobilinogen Normal MG/DL (0.0-1.0) Urine Leukocyte Esterase 1+ (NEGATIVE) H Urine RBC 0-2 /HPF (0 - 0) H Urine WBC 0-2 /HPF (0 - 0) Urine Squamous Epithelial Cells Few /LPF (NONE/OCC) Urine Bacteria Few /HPF (NONE) Arterial Blood pH 7.128 (7.350-7.450) Arterial Blood Partial Pressure CO2 75.7 mmHg (35.0-45.0) *H Arterial Blood Partial Pressure O2 494.6 mmHg (75.0-100.0) H Arterial Blood HCO3 24.5 mmol/L (22.0-26.0) Arterial Blood Oxygen Saturation 99.6 % (95-100) Arterial Blood Base Excess -6.5 (-2-2) L Bartolo Test Positive Test 06/10/19 14:53 Arterial Blood pH 7.276 (7.350-7.450) Arterial Blood Partial Pressure CO2 34.2 mmHg (35.0-45.0) L Arterial Blood Partial Pressure O2 98.1 mmHg (75.0-100.0) Arterial Blood HCO3 15.6 mmol/L (22.0-26.0) *L Arterial Blood Oxygen Saturation 96.9 % (95-100) Arterial Blood Base Excess -10.2 (-2-2) *L Bartolo Test Positive Height (Feet): 5 Height (Inches): 5.00 Weight (Pounds): 160 Medications Current Medications Medications (Trade) Dose Ordered Sig/Lara Route PRN Reason Start Time Stop Time Status Last Admin Dose Admin Acetaminophen (Tylenol) 650 mg Q4H PRN ORAL Mild Pain (Pain Scale 1-3) 06/10/19 13:15 07/10/19 13:14 Acetaminophen (Tylenol) 650 mg Q4H PRN ORAL fever 06/10/19 13:15 07/10/19 13:14 Acetaminophen (Tylenol) 650 mg Q4H PRN RECTAL Mild Pain (Pain Scale 1-3) 06/10/19 13:15 07/10/19 13:14 Acetaminophen (Tylenol) 650 mg Q4H PRN RECTAL fever 06/10/19 13:15 07/10/19 13:14 Al Hydroxide/Mg Hydroxide (Mylanta II) 30 ml Q6H PRN ORAL dyspepsia 06/10/19 13:15 07/10/19 13:14 Albuterol/ Ipratropium (Albuterol/ Ipratropium) 3 ml Q6HRT HHN 06/10/19 19:00 06/15/19 18:59 Azithromycin 500 mg/Dextrose 275 ml @ 275 mls/hr DAILY IV 06/11/19 09:00 06/18/19 08:59 Bisacodyl (Dulcolax) 10 mg DAILYPRN PRN RECTAL Constipation 06/10/19 13:15 07/10/19 13:14 Cefepime HCl 2 gm/ Dextrose 110 ml @ 220 mls/hr EVERY 8 HOURS IV 06/10/19 13:15 06/17/19 13:14 UNV Dextrose (Dextrose 50%) 25 ml Q30M PRN IV Hypoglycemia 06/10/19 13:15 07/10/19 13:14 Dextrose (Dextrose 50%) 50 ml Q30M PRN IV Hypoglycemia 06/10/19 13:15 07/10/19 13:14 Diphenhydramine HCl (Benadryl) 25 mg Q6H PRN ORAL Itching/Pruritis 06/10/19 13:15 07/10/19 13:14 Docusate Sodium (Colace) 100 mg EVERY 12 HOURS ORAL 06/10/19 21:00 07/10/19 20:59 Heparin Sodium (Porcine) (Heparin 5000 units/ml) 5,000 units EVERY 12 HOURS SUBQ 06/10/19 15:51 07/10/19 15:50 Levetiracetam 100 ml @ 400 mls/hr Q12HR@0500,1700 IVPB 06/10/19 17:00 07/10/19 16:59 Lorazepam (Ativan 2mg/ml 1ml) 0.5 mg Q4H PRN IV For Anxiety 06/10/19 13:15 06/17/19 13:14 Magnesium Hydroxide (Mom) 30 ml HSPRN PRN ORAL Constipation 06/10/19 13:15 07/10/19 13:14 Methylprednisolone Sodium Succinate (Solu-MEDROL) 40 mg EVERY 12 HOURS IVP 06/10/19 21:00 07/10/19 20:59 Morphine Sulfate (Morphine Sulfate) 1 mg Q4H PRN IVP mild pain 06/10/19 13:15 06/17/19 13:14 Morphine Sulfate (Morphine Sulfate) 2 mg Q4H PRN IVP Moderate Pain (Pain Scale 4-6) 06/10/19 13:15 06/17/19 13:14 Morphine Sulfate (Morphine Sulfate) 4 mg Q4H PRN IVP Severe Pain (Pain Scale 7-10) 06/10/19 13:15 06/17/19 13:14 Nitroglycerin (Ntg) 0.4 mg Q5M PRN SL Prn Chest Pain 06/10/19 13:15 07/10/19 13:14 Ondansetron HCl (Zofran) 4 mg Q6H PRN IVP Nausea & Vomiting 06/10/19 13:15 07/10/19 13:14 Pantoprazole (Protonix) 40 mg DAILY ORAL 06/11/19 09:00 07/11/19 08:59 Polyethylene Glycol (Miralax) 17 gm DAILYPRN PRN ORAL Constipation 06/10/19 13:15 07/10/19 13:14 Prochlorperazine (Compazine) 10 mg Q6H PRN IVP Nausea & Vomiting 06/10/19 13:15 07/10/19 13:14 Sodium Chloride 1,000 ml @ 100 mls/hr Q10H IV 06/10/19 15:15 07/10/19 15:14 06/10/19 15:16 Zolpidem Tartrate (Ambien) 5 mg HSPRN PRN ORAL Insomnia 06/10/19 13:15 06/17/19 13:14 Objective Narrative gen- twitching pectoralis and arms, intubated heent- ncat, pupils pinpoint cv- tachycardic, no m,r,g resp- ctab, no w,r,c abd- soft, non tender ext- normal muscle tone, no edema neuro- patient obtunded without sedation, twitching, pupils pinpoint Assessment/Plan Diagnosis [place] I: 59 yo M PMH of pericarditis?, COPD, seizures was intubated in ED for acute hypoxia # Acute Hypoxic and Hypercapnic Respiratory failure s/p Intubation 06/10 on admission # COPD exacerbation - cont azithro - ID consult - f/u cultures and repeat cxr in am - vent settings noted - wean vent as tolerated - echo # Lactic acidosis worsening, ddx: seizures, sepsis, s.e. of breathing treatment , - continue to monitor for s/s of ischemia - if continues tachycardia, rec to dc albuterol and cont atrovent - Gsx consult in AM - cont to trend - IVF # Seizure d/o - EEG - cont keppra - neuro consult - ct head negative # h/o Pericarditic - f/u echo as above # Hyponatremia - IV - ctm # Hypomagnesemia - replace - ctm FULL CODE 45 minutes of critical care time spent evaluating patient's vitals, exam, labs, imaging, interpretation of results, coordination of care among many specialists. Astrid Caputo DO Jun 10, 2019 16:15
--- NOTE | 2019-06-10 16:36 | Cardiology Report ---
APPROVED REPORT EXAM: Two-dimensional and M-mode echocardiogram with Doppler and color Doppler. INDICATION Congestive Heart Failure M-Mode DIMENSIONS IVSd1.1 (0.7-1.1cm)Left Atrium (MM)1.3 (1.6-4.0cm) LVDd2.0 (3.5-5.6cm)Aortic Root2.7 (2.0-3.7cm) PWd1.1 (0.7-1.1cm)Aortic Cusp Exc.1.6 (1.5-2.0cm) IVSs1.4 cm LVDs1.1 (2.5-4.0cm) PWs1.6 cm Normal left ventricular chamber size, systolic function and wall motion to extent visualized. Left ventricular ejection fraction estimated to be 60 %. No evidence of left ventricular hypertrophy. Anterior Echo-free space, may be due to pericardial fat or effusion. All other cardiac chamber sizes are within normal limits. Focal aortic valve sclerosis with adequate cusp excursion. Thickened mitral valve leaflets with normal excursion. Mitral annulus and aortic root calcification. Normal pulmonic valve structure. Normal tricuspid valve structure. IVC at size 1.9 cm without physiologic collapse,suggestive of increased RA pressure. A color flow and spectral Doppler study was performed and revealed: No aortic insufficiency. Trace mitral regurgitation. Left ventricular diastolic function not diagnostic due to arythmia . Mild tricuspid regurgitation. Tricuspid systolic velocities suggests peak right ventricular systolic pressure of 47 mmHg,consistent with moderate pulmonary hypertension.
--- NOTE | 2019-06-10 16:44 | Infectious Diseases Prog Note ---
Assessment/Plan Assessment/Plan Full consult dictated: A) 1) elevated lactic acid, ? sepsis, respiratory failure, ? pna, aspiration pna risk with cva/sz, ? cap 2) pmh noted 3) allergies - pcn, tolerated cephalosporins P) 1) vancomycin, cefepime, flagyl, azithromycin 2) check sc, labs, chest x-ray 3) iv steroids 4) vent 5) thank you Subjective Allergies: Coded Allergies: PENICILLINS (Verified Allergy, Unknown, 07/04/16) Objective Vital Signs Last 24 Hour Vital Signs Date Time Temp Pulse Resp B/P (MAP) Pulse Ox O2 Delivery O2 Flow Rate FiO2 06/10/19 14:55 113 28 104/84 100 Room Air 06/10/19 14:21 117 28 117/81 100 Mechanical Ventilator 60 06/10/19 13:33 127 28 101/70 100 Room Air 06/10/19 13:32 60 06/10/19 13:28 136 29 60 06/10/19 13:01 124 14 156/89 100 Room Air 06/10/19 12:00 128 14 119/82 100 Mechanical Ventilator 100 06/10/19 11:58 128 14 100 06/10/19 11:58 100 06/10/19 11:55 122 24 99 06/10/19 11:46 119 24 98 Nasal Cannula 2.0 28 06/10/19 11:46 119 24 98 Nasal Cannula 2.0 28 06/10/19 11:45 119 22 99 Room Air 21 06/10/19 11:36 125 22 88 Nasal Cannula 2.0 28 06/10/19 09:29 112 22 100 Room Air 06/10/19 09:19 119 19 100 Non-Rebreather 15.0 100 06/10/19 09:19 119 19 100 Non-Rebreather 15.0 100 06/10/19 09:10 121 20 Non-Rebreather 15.0 06/10/19 09:10 98.1 121 20 133/72 98 Non-Rebreather 15.0 06/10/19 08:58 98.1 131 20 100/49 (66) 98 Non-Rebreather 15.0 Height (Feet): 5 Height (Inches): 5.00 Weight (Pounds): 160 Laboratory Tests Test 06/10/19 09:10 06/10/19 10:05 06/10/19 11:14 06/10/19 13:05 White Blood Count 8.2 K/UL (4.8-10.8) Red Blood Count 5.91 M/UL (4.70-6.10) Hemoglobin 16.8 G/DL (14.2-18.0) Hematocrit 52.1 % (42.0-52.0) H Mean Corpuscular Volume 88 FL (80-99) Mean Corpuscular Hemoglobin 28.4 PG (27.0-31.0) Mean Corpuscular Hemoglobin Concent 32.2 G/DL (32.0-36.0) Red Cell Distribution Width 12.6 % (11.6-14.8) Platelet Count 181 K/UL (150-450) Mean Platelet Volume 8.1 FL (6.5-10.1) Neutrophils (%) (Auto) % (45.0-75.0) Lymphocytes (%) (Auto) % (20.0-45.0) Monocytes (%) (Auto) % (1.0-10.0) Eosinophils (%) (Auto) % (0.0-3.0) Basophils (%) (Auto) % (0.0-2.0) Differential Total Cells Counted 100 Neutrophils % (Manual) 89 % (45-75) H Lymphocytes % (Manual) 7 % (20-45) L Monocytes % (Manual) 4 % (1-10) Eosinophils % (Manual) 0 % (0-3) Basophils % (Manual) 0 % (0-2) Band Neutrophils 0 % (0-8) Platelet Estimate Adequate Platelet Morphology Normal Red Blood Cell Morphology Normal Sodium Level 134 MMOL/L (136-145) L Potassium Level 3.9 MMOL/L (3.5-5.1) Chloride Level 99 MMOL/L (98-107) Carbon Dioxide Level 21 MMOL/L (21-32) Anion Gap 14 mmol/L (5-15) Blood Urea Nitrogen 16 mg/dL (7-18) Creatinine 1.3 MG/DL (0.55-1.30) Estimat Glomerular Filtration Rate > 60 mL/min (>60) Glucose Level 161 MG/DL (74-106) H Lactic Acid Level 3.50 mmol/L (0.4-2.0) H 2.60 mmol/L (0.66-2.22) H Calcium Level 10.0 MG/DL (8.5-10.1) Phosphorus Level 3.2 MG/DL (2.5-4.9) Magnesium Level 1.3 MG/DL (1.8-2.4) L Total Bilirubin 0.7 MG/DL (0.2-1.0) Aspartate Amino Transf (AST/SGOT) 28 U/L (15-37) Alanine Aminotransferase (ALT/SGPT) 26 U/L (12-78) Alkaline Phosphatase 138 U/L (46-116) H Total Creatine Kinase 333 U/L (26-308) H Creatine Kinase MB 2.6 NG/ML (0.0-3.6) Creatine Kinase MB Relative Index 0.7 Troponin I 0.028 ng/mL (0.000-0.056) Pro-B-Type Natriuretic Peptide < 5 pg/mL (0-125) Total Protein 9.5 G/DL (6.4-8.2) H Albumin 4.5 G/DL (3.4-5.0) Globulin 5.0 g/dL Urine Color Pale yellow Urine Appearance Clear Urine pH 5 (4.5-8.0) Urine Specific [place] 1.015 (1.005-1.035) Urine Protein 3+ (NEGATIVE) H Urine Glucose (UA) Negative (NEGATIVE) Urine Ketones Negative (NEGATIVE) Urine Blood 1+ (NEGATIVE) H Urine Nitrite Negative (NEGATIVE) Urine Bilirubin Negative (NEGATIVE) Urine Urobilinogen Normal MG/DL (0.0-1.0) Urine Leukocyte Esterase 1+ (NEGATIVE) H Urine RBC 0-2 /HPF (0 - 0) H Urine WBC 0-2 /HPF (0 - 0) Urine Squamous Epithelial Cells Few /LPF (NONE/OCC) Urine Bacteria Few /HPF (NONE) Arterial Blood pH 7.128 (7.350-7.450) Arterial Blood Partial Pressure CO2 75.7 mmHg (35.0-45.0) *H Arterial Blood Partial Pressure O2 494.6 mmHg (75.0-100.0) H Arterial Blood HCO3 24.5 mmol/L (22.0-26.0) Arterial Blood Oxygen Saturation 99.6 % (95-100) Arterial Blood Base Excess -6.5 (-2-2) L Bartolo Test Positive Test 06/10/19 14:53 Arterial Blood pH 7.276 (7.350-7.450) Arterial Blood Partial Pressure CO2 34.2 mmHg (35.0-45.0) L Arterial Blood Partial Pressure O2 98.1 mmHg (75.0-100.0) Arterial Blood HCO3 15.6 mmol/L (22.0-26.0) *L Arterial Blood Oxygen Saturation 96.9 % (95-100) Arterial Blood Base Excess -10.2 (-2-2) *L Bartolo Test Positive Current Medications Medications (Trade) Dose Ordered Sig/Lara Route PRN Reason Start Time Stop Time Status Last Admin Dose Admin Acetaminophen (Tylenol) 650 mg Q4H PRN ORAL Mild Pain (Pain Scale 1-3) 06/10/19 13:15 07/10/19 13:14 Acetaminophen (Tylenol) 650 mg Q4H PRN ORAL fever 06/10/19 13:15 07/10/19 13:14 Acetaminophen (Tylenol) 650 mg Q4H PRN RECTAL Mild Pain (Pain Scale 1-3) 06/10/19 13:15 07/10/19 13:14 Acetaminophen (Tylenol) 650 mg Q4H PRN RECTAL fever 06/10/19 13:15 07/10/19 13:14 Al Hydroxide/Mg Hydroxide (Mylanta II) 30 ml Q6H PRN ORAL dyspepsia 06/10/19 13:15 07/10/19 13:14 Albuterol/ Ipratropium (Albuterol/ Ipratropium) 3 ml Q6HRT HHN 06/10/19 19:00 06/15/19 18:59 Azithromycin 500 mg/Dextrose 275 ml @ 275 mls/hr DAILY IV 06/11/19 09:00 06/18/19 08:59 Bisacodyl (Dulcolax) 10 mg DAILYPRN PRN RECTAL Constipation 06/10/19 13:15 07/10/19 13:14 Cefepime HCl 2 gm/ Dextrose 110 ml @ 220 mls/hr EVERY 8 HOURS IV 06/10/19 13:15 06/17/19 13:14 UNV Dextrose (Dextrose 50%) 25 ml Q30M PRN IV Hypoglycemia 06/10/19 13:15 07/10/19 13:14 Dextrose (Dextrose 50%) 50 ml Q30M PRN IV Hypoglycemia 06/10/19 13:15 07/10/19 13:14 Diphenhydramine HCl (Benadryl) 25 mg Q6H PRN ORAL Itching/Pruritis 06/10/19 13:15 07/10/19 13:14 Docusate Sodium (Colace) 100 mg EVERY 12 HOURS ORAL 06/10/19 21:00 07/10/19 20:59 Heparin Sodium (Porcine) (Heparin 5000 units/ml) 5,000 units EVERY 12 HOURS SUBQ 06/10/19 15:51 07/10/19 15:50 Levetiracetam 100 ml @ 400 mls/hr Q12HR@0500,1700 IVPB 06/10/19 17:00 07/10/19 16:59 Lorazepam (Ativan 2mg/ml 1ml) 0.5 mg Q4H PRN IV For Anxiety 06/10/19 13:15 06/17/19 13:14 Magnesium Hydroxide (Mom) 30 ml HSPRN PRN ORAL Constipation 06/10/19 13:15 07/10/19 13:14 Methylprednisolone Sodium Succinate (Solu-MEDROL) 40 mg EVERY 12 HOURS IVP 06/10/19 21:00 07/10/19 20:59 Morphine Sulfate (Morphine Sulfate) 1 mg Q4H PRN IVP mild pain 06/10/19 13:15 06/17/19 13:14 Morphine Sulfate (Morphine Sulfate) 2 mg Q4H PRN IVP Moderate Pain (Pain Scale 4-6) 06/10/19 13:15 06/17/19 13:14 Morphine Sulfate (Morphine Sulfate) 4 mg Q4H PRN IVP Severe Pain (Pain Scale 7-10) 06/10/19 13:15 06/17/19 13:14 Nitroglycerin (Ntg) 0.4 mg Q5M PRN SL Prn Chest Pain 06/10/19 13:15 07/10/19 13:14 Ondansetron HCl (Zofran) 4 mg Q6H PRN IVP Nausea & Vomiting 06/10/19 13:15 07/10/19 13:14 Pantoprazole (Protonix) 40 mg DAILY ORAL 06/11/19 09:00 07/11/19 08:59 Polyethylene Glycol (Miralax) 17 gm DAILYPRN PRN ORAL Constipation 06/10/19 13:15 07/10/19 13:14 Prochlorperazine (Compazine) 10 mg Q6H PRN IVP Nausea & Vomiting 06/10/19 13:15 07/10/19 13:14 Sodium Chloride 1,000 ml @ 100 mls/hr Q10H IV 06/10/19 15:15 07/10/19 15:14 06/10/19 15:16 Zolpidem Tartrate (Ambien) 5 mg HSPRN PRN ORAL Insomnia 06/10/19 13:15 06/17/19 13:14 Reji Maier MD Jun 10, 2019 16:44
--- NOTE | 2019-06-10 17:30 | NUR ---
NURSE NOTES: PATIENT TURNED AND REPOSITIONED. ORAL CARE DONE. TOLERATING VENT SETTINGS. PATIENT NOTED TO BE PULLING ETT. RESTRAINTS INITIATED. WILL CONTINUE TO MONITOR.
[2019-06-10] MEDS: Heparin 5000 units/ml inj SUBQ SCH ×2 (17:53→21:00)
[2019-06-10] MEDS: levETIRAcetam 500mg/NS100ml 100 ML IVPB SCH (17:54)
[2019-06-10] MEDS: Vancomycin 750mg/NS 275ml IVPB SCH ×2 (17:54)
[2019-06-10] MEDS: Albuterol/Ipratropium 3ml neb HHN SCH (19:28)
--- NOTE | 2019-06-10 19:30 | NUR ---
NURSE NOTES: SEEN THE PATIENT BY DR. LUCIO.
--- NOTE | 2019-06-10 19:37 | NUR ---
HAND-OFF: Report given to Yamilet Mcbride RN.
--- NOTE | 2019-06-10 19:43 | Consultation ---
Consult Note Consult Note NEUROLOGY CONSULTATION: Full note dictated #[id number] 59-year-old, right-handed, black gentleman, with past history of COPD, hypertension, diabetes mellitus, dyslipidemia, cerebrovascular disease with a stroke associated with right-sided weakness, and an undefined seizure disorder for which he takes Keppra 500 mg twice a day. In the early hours of today he developed increasing shortness of breath and as a result of that he was brought into the [facility] emergency room. His respiratory distress got significantly worse and as a result of that he had to be intubated and artificially ventilated. This consultation was requested to evaluate the patient for his altered mental state and manage his seizure disorder. On exam: Oriented to self and hospital only Knows that Laila is president. Unable to perform further mental status testing. Speech could not be tested because he was intubated. He did mouth a few words. Language could not be tested adequately he however was able to follow simple commands. Cranial nerves II through XII intact except for mild right 7 central facial paresis Motor: G 5/5 except for G 4+/5 in right finger extensors and iliopsoas Sensory intact to pinprick and light touch Reflexes: 2+ on the right and 1+ on the left at the biceps triceps brachioradialis and knees. 0 at both ankles. Plantar responses flexor. Coordination stance and gait could not be tested IMPRESSION: Acute exacerbation of COPD with respiratory failure. Prior history of stroke associated with right hemiparesis and seizure disorder. Encephalopathy due to respiratory failure and underlying structural brain disease. RECOMMENDATIONS: Continue Keppra 500 mg intravenously every 12 hours. When the patient is able to take oral medications can change to oral Keppra and same dose. Treatment of respiratory failure as per Dr. Chino. Observe closely. Royer Corona M.D., M.S.P.H. Royer Corona MD Jun 10, 2019 19:43
--- NOTE | 2019-06-10 19:45 | NUR ---
NURSE NOTES: PATIENT RESPONSE TO NAME, ABLE TO FOLLOW COMMANDS AT THIS TIME, ON ETT TO VENT AC 28/TV 650/FIO2 60%/PEEP 5, O2 SATURATION 100% NOTED, NPO STATUS, ABDOMEN SOFT, HYPOACTIVE BOWEL SOUND TO 4 QUADRANTS, CONDOM CATHETER INTACT AND PATENT, PERIPHERAL LINE TO RIGHT FORE ARM INTACT AND PATENT, LEFT FORE ARM IV SITE INFILTRATED, ONGOING IV FLUID, NS AT 100ML/HR VIA RIGHT SIDE, 2 POINT SOFT RESTRAINTS FOR SAFETY, MADE LOWER BED POSITION, PROVIDED CALL LIGHT WITHIN REACH, WILL CONTINUE TO MONITOR. Addendum: 06/11/19 at 0108 by AMADOU BOLIVAR RN NURSE NOTES: PATIENT RESPONSE TO NAME, ABLE TO FOLLOW COMMANDS AT THIS TIME, ON ETT TO VENT AC 28/TV 650/FIO2 50%/PEEP 5, O2 SATURATION 100% NOTED, NPO STATUS, ABDOMEN SOFT, HYPOACTIVE BOWEL SOUND TO 4 QUADRANTS, CONDOM CATHETER INTACT AND PATENT, PERIPHERAL LINE TO RIGHT FORE ARM INTACT AND PATENT, LEFT FORE ARM IV SITE INFILTRATED, ONGOING IV FLUID, NS AT 100ML/HR VIA RIGHT SIDE, 2 POINT SOFT RESTRAINTS FOR SAFETY, MADE LOWER BED POSITION, PROVIDED CALL LIGHT WITHIN REACH, WILL CONTINUE TO MONITOR.
[2019-06-10] MEDS: Docusate 100mg cap ORAL SCH (21:00)
--- NOTE | 2019-06-10 21:00 | NUR ---
NURSE NOTES: ONGOING EEG STATUS.
--- NOTE | 2019-06-10 21:30 | NUR ---
NURSE NOTES: EEG WAS DONE.
[2019-06-10] MEDS: Solu-MEDROL 40mg Inj IVP SCH (21:36)
--- NOTE | 2019-06-10 22:09 | NUR ---
NURSE NOTES: PATIENT ANXIOUS STATUS, GIVEN ATIVAN 0.5MG BY IVP SLOWLY PRN ORDERED, WILL CONTINUE TO MONITOR.
--- NOTE | 2019-06-10 23:30 | Consultation ---
DATE OF CONSULTATION: 06/10/2019 NEUROLOGY CONSULTATION CONSULTING PHYSICIAN: Royer Corona M.D. REFERRING PHYSICIAN: Astrid Caputo M.D. HISTORY: Mr. Kevin Singh is a 59-year-old, right-handed, black gentleman, who does have a past history of chronic obstructive pulmonary disease, hypertension, diabetes mellitus, dyslipidemia, cerebrovascular disease with a prior stroke associated with right-sided weakness, and an undefined seizure disorder for which he takes Keppra 500 mg every 12 hours. In the early hours of 06/10/2019, he developed increasing shortness of breath and as a result of that, he was brought into the [facility] emergency room. His respiratory distress got significantly worse and as a result of that, he had to be intubated and artificially ventilated. This consultation was requested to evaluate the patient for his altered mental state and to manage his seizure disorder. As per the patient, he has not had a seizure for a long time, but cannot describe to me as to what exactly happens when he has a seizure. He states that he tolerates the Keppra well. PAST MEDICAL HISTORY: Significant for COPD, hypertension, diabetes mellitus, dyslipidemia, cerebrovascular disease with prior stroke associated right-sided weakness, and seizure disorder. FAMILY HISTORY: Significant for high blood pressure and diabetes mellitus in other family members. PERSONAL HISTORY: Home: He is unable to tell me about his living situation. Work: He states that he is not working. Habits: Unknown. PRESENT MEDICATIONS: Azithromycin, pantoprazole, metronidazole, Solu-Medrol, DuoNeb inhaler, vancomycin, levofloxacin, Keppra 500 mg q.12 hours, heparin for DVT prophylaxis, Tylenol p.r.n., morphine p.r.n., Dulcolax p.r.n., milk of magnesia p.r.n., MiraLAX p.r.n., Zofran p.r.n., Compazine p.r.n., Ativan p.r.n., Ambien p.r.n., Benadryl p.r.n., and nitroglycerin p.r.n. PHYSICAL EXAMINATION: GENERAL: He is a well-developed relatively well-nourished black gentleman, lying in an ICU bed, connected to a ventilator via an orotracheal tube. VITAL SIGNS: Pulse 101/minute, blood pressure 104/84 mmHg, respirations 28/minute, and temperature 98.1 degrees Fahrenheit. HEAD: Normocephalic and atraumatic. EENT: Examination benign. NECK: No neck rigidity was observed. NEUROLOGICAL EXAMINATION: MENTAL STATUS EXAMINATION: He was awake and alert. He was oriented to self and hospital only. He was unable to give me the name of the hospital and had no idea what the date was. He was able to recall 3/3 words immediately, but could not remember them in 1 minute and 3 minutes. He knew that Laila is President, but could not remember Presidents prior to that. He was unable to cooperate for further mental status testing. SPEECH: Could not be tested because he was intubated, but he did mouth a few words. LANGUAGE: He was able to comprehend relatively well and follow commands, but could not express himself except for some yes/no answers and mouthing a few words. CRANIAL NERVE EXAMINATION: II: The visual velasquez were intact to threat. III, IV & : The external ocular movements were full and the pupils 3 mm in diameter, equal, round, regular, and reactive to light. V: He had normal facial sensations and the temporales, masseters, and pterygoids functioned normally. VII: He had a mild right seventh central facial paresis. VIII: He was able to hear and had no nystagmus. IX & X: The gag reflex was present, but subdued on moving the endotracheal tube. XI: The sternocleidomastoids and trapezii did function. XII: Could not be tested adequately. MOTOR SYSTEM: The tone was minimally increased with a mild degree of spasticity on the right side. Examination of muscle mass revealed no focal wasting. Examination of power revealed G 5/5 power except for G 4+/5 power in the right finger extensors and iliopsoas. SENSORY EXAMINATION: He had intact sensations to pinprick and light touch. He was unable to cooperate for other sensory modalities. REFLEXES: 2+ on the right and 1+ on the left in the biceps, triceps, brachioradialis, and knees, 0 at both ankles. The plantar responses were flexor bilaterally. COORDINATION, STANCE & GAIT: Could not be tested. DIAGNOSTIC IMPRESSION: 1. Mr. Kevin Singh is a 59-year-old, right-handed, black gentleman, with a past history of COPD, hypertension, diabetes mellitus, dyslipidemia, cerebrovascular disease with prior stroke associated with right-sided weakness, and an undefined seizure disorder for which he takes Keppra 500 mg twice a day, with good seizure control. He was hospitalized in the early hours of 06/10/2019 after he developed increasing shortness of breath and he became significantly more short of breath and had to be intubated and artificially ventilated. 2. On neurological examination, at this time, he is oriented to self and hospital only. He has significant problems with recent memory, can only remember Trump as president, and is unable to perform further mental status testing. Speech could not be tested and language could also be tested adequately. He does have a right seventh central facial paresis. Right hemiparesis involving the finger extensors and iliopsoas. Brisker deep tendon reflexes on the right side compared to the left. 3. The patient's history and neurological examination are most consistent with an acute exacerbation of COPD with respiratory failure. 4. He does have a prior history of stroke with right hemiparesis and in addition, a history of a seizure disorder which is poorly defined. 5. His present altered mental state is related to an encephalopathy due to respiratory failure and possibly the underlying structural brain disease related to stroke. RECOMMENDATIONS: 1. Agree with management thus far. 2. Would continue the patient on Keppra 500 mg intravenously every 12 hours. When the patient is able to take oral medicines, the dose of Keppra can be changed to an identical does given orally. 3. Treatment of respiratory failure as per Dr. Chino. 4. The patient should be observed closely and depending on how he fares further recommendations will be given. Thank you for entrusting me with the care of Mr. Singh. I shall follow him with you. Royer Corona M.D., M.S.P.H. DR: CLARICE JOB#: [id number] EVGENY
--- NOTE | 2019-06-10 23:47 | NUR ---
NURSE NOTES: PATIENT ASLEEP STATUS, NO DISTRESS NOTED AT THIS TIME, KEPT HOB 30 DEGREES AND SZ PRECAUTION.
[2019-06-11] VITALS (25 sets, daily range): BP systolic 117–150; BP diastolic 67–109
[2019-06-11] MEDS: Albuterol/Ipratropium 3ml neb HHN SCH ×4 (01:35→19:28)
--- NOTE | 2019-06-11 02:00 | NUR ---
NURSE NOTES: RELEASED RESTRAINTS, REAPPLIED FOR SAFETY, NO PAIN OR DISTRESS NOTED AT THIS TIME.
--- NOTE | 2019-06-11 02:30 | Consultation ---
DATE OF CONSULTATION: 06/10/2019 INFECTIOUS DISEASES CONSULTATION CONSULTING PHYSICIAN: Reji Maier M.D. ATTENDING PHYSICIAN: Jonas Molina M.D. REFERRING PHYSICIAN: Astrid Caputo M.D. REASON FOR CONSULTATION: Possible sepsis, elevated lactic acid, and possible community-acquired pneumonia. REASON FOR ADMISSION: Respiratory failure, vent, COPD exacerbation, and looks like also seizures. CHIEF COMPLAINT: The patient's chief complaint coming into the hospital is respiratory failure and COPD exacerbation. HISTORY OF PRESENT ILLNESS: This is a 59-year-old male who comes in to [facility]. He was noted to have COPD exacerbation. The patient now is intubated in the ICU, concerned for the patient having community-acquired pneumonia and possible sepsis with elevated lactic acid level of 3.5. The patient was placed on vancomycin, azithromycin, and cefepime. Cultures are pending. MAR was noted. UA was unremarkable and initial chest x-ray showed no pneumonia. PAST MEDICAL HISTORY: History of hypertension, asthma, diabetes, CVA, and seizures. Per the nurse, he had a seizure today in the ER. He also has a history of CAD, COPD, elevated lactic acid, bipolar disease. REVIEW OF SYSTEMS: GENERAL: The patient is intubated in the ICU. He is not on pressors. He is on a vent. He is responsive. HEAD AND NECK: He is orally intubated. CARDIAC: No pressors. GASTROINTESTINAL: No nausea, vomiting, or diarrhea. GENITOURINARY: He does have a Nielson. PULMONARY: On a vent. No significant secretions. SKIN: No rash. EXTREMITIES: No extremity pain. NEUROLOGIC: No seizures. No chest pain. ALLERGIES: Penicillin. He tolerates cefepime. FAMILY HISTORY: Noncontributory. SOCIAL HISTORY: Per the discussion with RN and per the history, negative for smoking, alcohol, or drug use or abuse. MEDICATIONS: Upon reviewing the MAR, the patient is on the following medications. He is on azithromycin, pantoprazole, docusate, methylprednisolone, albuterol, abx, heparin, cefepime, acetaminophen, morphine, bisacodyl, magnesium hydroxide, Zofran, Compazine, lorazepam, zolpidem, nitroglycerin. Outside medications are noted and reconciled. Antibiotics, vancomycin, cefepime, azithromycin. Consider adding Flagyl. PHYSICAL EXAMINATION: VITAL SIGNS: Temperature is 98.1, pulse rate 113, respiratory rate 28, blood pressure 104/84, saturating 100%, FiO2 60%. GENERAL: He opens his eyes, responsive. He is on a vent. HEAD AND NECK: Orally intubated. No icterus or thrush. Normocephalic. HEART: Regular. No gallop or murmur. Tachycardic. ABDOMEN: Soft. Positive bowel sounds. LUNGS: Bilateral rhonchi. Possible rales at bases. SKIN: No rash. MUSCULOSKELETAL: No effusion. No other rash. Legs are without cellulitis. PERIPHERAL VASCULAR: No cyanosis. GENITOURINARY: He has a Nielson. Urine is clear. LINE SITES: Without phlebitis. NEUROLOGIC: Looks responsive. LABORATORY DATA: Creatinine 1.3. LFTs noted. White count 8.2, hemoglobin 16.8. UA was 0 to 2 white cells. IMAGING STUDIES: Chest x-ray on 06/10/2019 showed pleural spaces to be clear and no acute process on chest x-ray today. Followup chest x-ray has been ordered for tomorrow. Lactic acid level is 3.5. Cultures, urine culture is pending. ASSESSMENT AND PLAN: 1. The patient has possible sepsis with elevated lactic acid level. The patient also has respiratory failure, tachycardia, SIRS criteria. The patient as discussed is noted to have seizures. He is at high risk for aspiration pneumonia in addition to community-acquired pneumonia and COPD exacerbation and asthma exacerbation, causing the respiratory failure also. Continue vancomycin, cefepime, azithromycin. Consider adding Flagyl to the regimen to cover for aspiration and community-acquired pneumonia and also for sepsis. Continue antibiotics, vancomycin, Rocephin, Flagyl, and azithromycin. Check cultures. Labs, urine culture and chest x-ray. Check blood cultures. 2. Mild hyponatremia. 3. The patient has a history of seizures. 4. CVA. 5. Aspiration risk. 6. Hypertension. 7. Asthma. 8. COPD. 9. Diabetes. 10. Blood sugar and blood pressure treatment per primary. 11. CAD. 12. Bipolar disease. 13. Vent dependency. 14. IV steroids. 15. Lactic acidosis. 16. Allergy to penicillin, tolerates cephalosporin. 17. Social history negative. 18. Family history noncontributory. 19. MAR was noted. 20. Case discussed with RN. 21. Continue treatment per primary consultants. Reji Maier M.D. DR: KATRINA JOB#: [id number] CC: EVGENY
--- NOTE | 2019-06-11 03:00 | Consultation ---
DATE OF CONSULTATION: 06/10/2019 ADDENDUM Because of penicillin allergy, the patient never got cefepime. We will change antibiotics to Levaquin, Flagyl, and vancomycin. This will cover both community-acquired pneumonia and aspiration pneumonia. In addition, Levaquin should not affect patient with penicillin allergy. Cefepime again has been discontinued. Follow up on cultures and chest x-ray. Reji Maier M.D. DR: HANSEL JOB#: [id number] CC:
--- NOTE | 2019-06-11 03:21 | NUR ---
NURSE NOTES: NAUSEA NOTED, GIVEN ZOFRAN 4MG BY IVP PRN ORDERED, KEPT HOB OVER 30 DEGREES, WILL CONTINUE TO MONITOR.
[2019-06-11] MEDS: levETIRAcetam 500mg/NS100ml 100 ML IVPB SCH ×2 (04:31→17:56)
--- NOTE | 2019-06-11 04:40 | NUR ---
NURSE NOTES: MORNING CARE AND ORAL CARE WAS DONE, NO BOWEL MOVEMENT STATUS.
[2019-06-11] MEDS: Vancomycin 750mg/NS 275ml IVPB SCH ×4 (05:31→17:56)
[2019-06-11 05:36] LABS: HEMATOCRIT 46.5 % (42.0-52.0); HEMOGLOBIN 15.5 G/DL (14.2-18.0); MEAN CORPUSCULAR VOLUME 87 FL (80-99); PLATELET COUNT 152 K/UL (150-450); RED BLOOD COUNT 5.35 M/UL (4.70-6.10); RED CELL DISTRIBUTION WIDTH 12.5 % (11.6-14.8); WHITE BLOOD COUNT 9.4 K/UL (4.8-10.8)
[2019-06-11 05:58] LABS: ALANINE AMINOTRANSFERASE 27 U/L (12-78); ALKALINE PHOSPHATASE 109 U/L (46-116); ANION GAP 19 mmol/L (5-15); ASPARTATE AMINO TRANSFERASE 29 U/L (15-37); BILIRUBIN,DIRECT < 0.1 MG/DL (0.0-0.3); BILIRUBIN,TOTAL 0.6 MG/DL (0.2-1.0); BLOOD UREA NITROGEN 16 mg/dL (7-18); CALCIUM 9.7 MG/DL (8.5-10.1); CARBON DIOXIDE 19 MMOL/L (21-32); CHLORIDE 98 MMOL/L (98-107); CREATININE 1.2 MG/DL (0.55-1.30); PHOSPHORUS 1.4 MG/DL (2.5-4.9); POTASSIUM 4.3 MMOL/L (3.5-5.1); SODIUM 136 MMOL/L (136-145)
--- NOTE | 2019-06-11 06:20 | NUR ---
NURSE NOTES: PATIENT ASLEEP STATUS, NO PAIN OR DISTRESS NOTED AT THIS TIME.
--- NOTE | 2019-06-11 07:05 | NUR ---
HAND-OFF: Report given to YAKELIN NEWTON.
--- NOTE | 2019-06-11 07:06 | NUR ---
NURSE NOTES: RECEIVED PATIENT FROM Yamilet BOLIVAR RN. PATIENT IS SEEN LYING IN BED AWAKE AND RESPONSIVE. ORALLY INTUBATED. ETT 7.5 AT 24CM LIP LINE. VENT SETTINGS OF AC 28, TV 650, FiO2 40%, PEEP 5. NO SIGNS OF DISTRESS OF THE MOMENT. IVS ON R FA G20, R FA G22 WITH IVF RUNNING NS AT 100ML/HR. PT CAN USE URINAL. CALL LIGHT WITHIN REACH. SIDE RAILS UP AND PADDED. BED AT LOWEST POSITION. WILL CONTINUE TO MONITOR.
--- NOTE | 2019-06-11 08:39 | Diagnostic Imaging Report ---
Indication: Dyspnea Technique: One view of the chest Comparison: 06/10/2019 Findings: Lungs and pleural spaces are clear. Left basilar nodular opacity probably represents a nipple shadow. The heart size is normal. Stable satisfactory position of endotracheal tube. Normal heart size Impression: Unchanged, over one day, findings as above.
--- NOTE | 2019-06-11 08:52 | NUR ---
NURSE NOTES: CALLED AND LEFT A MESSAGE TO DR LEIJA'S GROUP FOR MG AND PHOS LEVEL. WILL CONTINUE TO MONITOR.
[2019-06-11] MEDS: Docusate 100mg cap ORAL SCH ×2 (09:00→21:04)
[2019-06-11] MEDS ORDERED: Azithromycin 500 MG in D5W 275 ML IV SCH (09:00)
--- NOTE | 2019-06-11 09:00 | NUR ---
NURSE NOTES: RECEIVED NEW ORDERS FROM DR OSEGUERA. WILL CONTINUE TO MONITOR.
--- NOTE | 2019-06-11 09:06 | NUR ---
RADIOLOGY DEPT., CHEST X-RAY DONE.-P.DYE
--- NOTE | 2019-06-11 09:27 | NUR ---
*-* NO INSURANCE INFORMATION IN THE BAR UNABLE TO SEND CLINICALS OR REVIEWS *-*
[2019-06-11] MEDS: Solu-MEDROL 40mg Inj IVP SCH ×2 (09:38→21:04)
[2019-06-11] MEDS: Heparin 5000 units/ml inj SUBQ SCH ×2 (09:40→21:05)
[2019-06-11] MEDS: Pantoprazole Inj IVP SCH (09:40)
--- NOTE | 2019-06-11 11:00 | NUR ---
NURSE NOTES: PATIENT TOLERATED FEEDINGS AND VENT SETTINGS. NO SIGNS OF DISTRESS OF THE MOMENT. WILL CONTINUE TO MONITOR.
--- NOTE | 2019-06-11 12:30 | NUR ---
NURSE NOTES: SEEN AND EXAMINED BY DR OSEGUERA. NNO. WILL CONTINUE TO MONITOR.
--- NOTE | 2019-06-11 12:38 | Cardiology Report ---
APPROVED REPORT EKG Measurement Heart [id number] Sinus tachycardia with fusion complexes Septal infarct, age undetermined Possible Lateral infarct, age undetermined Abnormal ECG
--- NOTE | 2019-06-11 12:38 | Infectious Diseases Prog Note ---
Assessment/Plan Assessment/Plan A) 1) elevated lactic acid, ? sepsis, respiratory failure, ? pna, aspiration pna risk with cva/sz, ? cap 2) pmh noted 3) allergies - pcn, tolerated cephalosporins P) 1) vancomycin, levofloxacin and flagyl 2) check sc, labs, chest x-ray 3) iv steroids 4) vent 5) icu care Subjective Constitutional: Reports: fever, other - on vent HEENT: Reports: congestion Respiratory: Reports: shortness of breath Cardiovascular: Denies: chest pain Gastrointestinal/Abdominal: Denies: nausea, vomiting, diarrhea Genitourinary: Reports: other - + longoria Allergies: Coded Allergies: PENICILLINS (Verified Allergy, Unknown, 07/04/16) Objective Vital Signs Last 24 Hour Vital Signs Date Time Temp Pulse Resp B/P (MAP) Pulse Ox O2 Delivery O2 Flow Rate FiO2 06/11/19 12:00 40 06/11/19 12:00 109 06/11/19 12:00 Mechanical Ventilator Mechanical Ventilator 06/11/19 11:00 93 28 146/99 (115) 100 06/11/19 10:43 106 28 40 06/11/19 10:00 107 27 144/99 (114) 100 06/11/19 09:00 40 06/11/19 09:00 111 28 144/91 (108) 100 06/11/19 09:00 105 28 40 06/11/19 08:00 102 06/11/19 08:00 Mechanical Ventilator Mechanical Ventilator 06/11/19 08:00 99.2 106 27 147/95 (112) 100 06/11/19 07:32 107 28 98 Mechanical Ventilator 50 06/11/19 07:23 96 28 40 06/11/19 07:22 110 28 100 Mechanical Ventilator 40 06/11/19 07:00 91 27 143/89 (107) 100 06/11/19 06:00 87 28 141/91 (108) 100 06/11/19 05:00 98 28 150/89 (109) 100 06/11/19 04:55 101 29 40 06/11/19 04:00 40 06/11/19 04:00 98.8 95 28 140/93 (109) 100 06/11/19 04:00 Mechanical Ventilator Mechanical Ventilator 06/11/19 03:34 103 28 40 06/11/19 03:22 110 27 149/91 (110) 100 8/22/19 03:02 109 06/11/19 03:00 94 28 133/109 (117) 100 06/11/19 02:00 104 28 150/93 (112) 100 06/11/19 01:51 107 28 98 Mechanical Ventilator 50 06/11/19 01:35 108 28 100 Mechanical Ventilator 40 06/11/19 01:31 108 28 40 06/11/19 01:00 90 28 139/93 (108) 100 06/11/19 00:00 Mechanical Ventilator Mechanical Ventilator 06/11/19 00:00 40 06/11/19 00:00 98.5 94 28 130/89 (103) 100 06/10/19 23:15 93 06/10/19 23:00 97 26 144/97 (113) 100 06/10/19 22:37 94 28 40 06/10/19 22:00 103 26 148/87 (107) 100 06/10/19 21:00 90 28 144/91 (108) 100 06/10/19 20:49 80 28 50 06/10/19 20:00 50 06/10/19 20:00 Mechanical Ventilator Mechanical Ventilator 06/10/19 20:00 98.5 94 28 137/86 (103) 100 06/10/19 19:43 96 25 50 06/10/19 19:38 96 28 100 Mechanical Ventilator 50 06/10/19 19:30 93 06/10/19 19:28 96 28 100 Mechanical Ventilator 60 06/10/19 19:00 95 28 112/78 (89) 100 06/10/19 17:39 101 28 60 06/10/19 16:00 50 06/10/19 16:00 94 06/10/19 16:00 Mechanical Ventilator 06/10/19 15:52 Mechanical Ventilator Mechanical Ventilator 06/10/19 15:43 106 28 60 06/10/19 15:40 98.1 113 28 104/84 100 Room Air 2.0 60 06/10/19 14:55 113 28 104/84 100 Room Air 06/10/19 14:21 117 28 117/81 100 Mechanical Ventilator 60 06/10/19 13:33 127 28 101/70 100 Room Air 06/10/19 13:32 60 06/10/19 13:28 136 29 60 06/10/19 13:01 124 14 156/89 100 Room Air Height (Feet): 5 Height (Inches): 5.00 Weight (Pounds): 128 General Appearance: no acute distress HEENT: normocephalic, atraumatic, anicteric, EOMI Respiratory/Chest: crackles/rales, rhonchi - bilaterally Cardiovascular: normal rate, regular rhythm Abdomen: normal bowel sounds, soft, non tender, no organomegaly 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, alert Microbiology Date/Time Source Procedure Growth Status 06/10/19 14:50 Sputum Induced Gram Stain - Final Resulted 06/10/19 14:50 Sputum Induced Sputum Culture Pending Resulted Laboratory Tests Test 06/10/19 13:05 06/10/19 14:53 06/10/19 17:05 06/10/19 20:05 Arterial Blood pH 7.128 (7.350-7.450) 7.276 (7.350-7.450) Arterial Blood Partial Pressure CO2 75.7 mmHg (35.0-45.0) *H 34.2 mmHg (35.0-45.0) L Arterial Blood Partial Pressure O2 494.6 mmHg (75.0-100.0) H 98.1 mmHg (75.0-100.0) Arterial Blood HCO3 24.5 mmol/L (22.0-26.0) 15.6 mmol/L (22.0-26.0) *L Arterial Blood Oxygen Saturation 99.6 % (95-100) 96.9 % (95-100) Arterial Blood Base Excess -6.5 (-2-2) L -10.2 (-2-2) *L Bartolo Test Positive Positive Lactic Acid Level 6.20 mmol/L (0.4-2.0) H Troponin I 0.040 ng/mL (0.000-0.056) Test 06/10/19 23:22 06/11/19 01:10 06/11/19 05:12 Lactic Acid Level 3.40 mmol/L (0.4-2.0) H 3.70 mmol/L (0.66-2.22) H 2.00 mmol/L (0.4-2.0) White Blood Count 9.4 K/UL (4.8-10.8) Red Blood Count 5.35 M/UL (4.70-6.10) Hemoglobin 15.5 G/DL (14.2-18.0) Hematocrit 46.5 % (42.0-52.0) Mean Corpuscular Volume 87 FL (80-99) Mean Corpuscular Hemoglobin 29.0 PG (27.0-31.0) Mean Corpuscular Hemoglobin Concent 33.4 G/DL (32.0-36.0) Red Cell Distribution Width 12.5 % (11.6-14.8) Platelet Count 152 K/UL (150-450) Mean Platelet Volume 7.9 FL (6.5-10.1) Neutrophils (%) (Auto) % (45.0-75.0) Lymphocytes (%) (Auto) % (20.0-45.0) Monocytes (%) (Auto) % (1.0-10.0) Eosinophils (%) (Auto) % (0.0-3.0) Basophils (%) (Auto) % (0.0-2.0) Differential Total Cells Counted 100 Neutrophils % (Manual) 93 % (45-75) H Lymphocytes % (Manual) 6 % (20-45) L Monocytes % (Manual) 1 % (1-10) Eosinophils % (Manual) 0 % (0-3) Basophils % (Manual) 0 % (0-2) Band Neutrophils 0 % (0-8) Platelet Estimate Adequate Platelet Morphology Normal Red Blood Cell Morphology Normal Sodium Level 136 MMOL/L (136-145) Potassium Level 4.3 MMOL/L (3.5-5.1) Chloride Level 98 MMOL/L (98-107) Carbon Dioxide Level 19 MMOL/L (21-32) L Anion Gap 19 mmol/L (5-15) H Blood Urea Nitrogen 16 mg/dL (7-18) Creatinine 1.2 MG/DL (0.55-1.30) Estimat Glomerular Filtration Rate > 60 mL/min (>60) Glucose Level 123 MG/DL (74-106) H Calcium Level 9.7 MG/DL (8.5-10.1) Phosphorus Level 1.4 MG/DL (2.5-4.9) L Magnesium Level 1.1 MG/DL (1.8-2.4) L Total Bilirubin 0.6 MG/DL (0.2-1.0) Direct Bilirubin < 0.1 MG/DL (0.0-0.3) Aspartate Amino Transf (AST/SGOT) 29 U/L (15-37) Alanine Aminotransferase (ALT/SGPT) 27 U/L (12-78) Alkaline Phosphatase 109 U/L (46-116) Total Protein 8.8 G/DL (6.4-8.2) H Albumin 4.0 G/DL (3.4-5.0) Current Medications Medications (Trade) Dose Ordered Sig/Lara Route PRN Reason Start Time Stop Time Status Last Admin Dose Admin Acetaminophen (Tylenol) 650 mg Q4H PRN ORAL Mild Pain (Pain Scale 1-3) 06/10/19 13:15 07/10/19 13:14 Acetaminophen (Tylenol) 650 mg Q4H PRN ORAL fever 06/10/19 13:15 07/10/19 13:14 Acetaminophen (Tylenol) 650 mg Q4H PRN RECTAL Mild Pain (Pain Scale 1-3) 06/10/19 13:15 07/10/19 13:14 Acetaminophen (Tylenol) 650 mg Q4H PRN RECTAL fever 06/10/19 13:15 07/10/19 13:14 Al Hydroxide/Mg Hydroxide (Mylanta II) 30 ml Q6H PRN ORAL dyspepsia 06/10/19 13:15 07/10/19 13:14 Albuterol/ Ipratropium (Albuterol/ Ipratropium) 3 ml Q6HRT HHN 06/10/19 19:00 06/15/19 18:59 06/11/19 07:22 Bisacodyl (Dulcolax) 10 mg DAILYPRN PRN RECTAL Constipation 06/10/19 13:15 07/10/19 13:14 Dextrose (Dextrose 50%) 25 ml Q30M PRN IV Hypoglycemia 06/10/19 13:15 07/10/19 13:14 Dextrose (Dextrose 50%) 50 ml Q30M PRN IV Hypoglycemia 06/10/19 13:15 07/10/19 13:14 Diphenhydramine HCl (Benadryl) 25 mg Q6H PRN ORAL Itching/Pruritis 06/10/19 13:15 07/10/19 13:14 Docusate Sodium (Colace) 100 mg EVERY 12 HOURS ORAL 06/10/19 21:00 07/10/19 20:59 Heparin Sodium (Porcine) (Heparin 5000 units/ml) 5,000 units EVERY 12 HOURS SUBQ 06/10/19 15:51 07/10/19 15:50 06/11/19 09:40 Levetiracetam 100 ml @ 400 mls/hr Q12HR@0500,1700 IVPB 06/10/19 17:00 07/10/19 16:59 06/11/19 04:31 Levofloxacin 150 ml @ 100 mls/hr Q24H IVPB 06/10/19 18:00 06/17/19 17:59 06/10/19 17:54 Lorazepam (Ativan 2mg/ml 1ml) 0.5 mg Q4H PRN IV For Anxiety 06/10/19 13:15 06/17/19 13:14 06/10/19 22:09 Magnesium Hydroxide (Mom) 30 ml HSPRN PRN ORAL Constipation 06/10/19 13:15 07/10/19 13:14 Magnesium Sulfate 100 ml @ 100 mls/hr Q1H IVPB 06/11/19 10:00 06/11/19 13:59 06/11/19 11:21 Methylprednisolone Sodium Succinate (Solu-MEDROL) 40 mg EVERY 12 HOURS IVP 06/10/19 21:00 07/10/19 20:59 06/11/19 09:38 Metronidazole 100 ml @ 100 mls/hr Q8HR IVPB 06/10/19 22:00 06/17/19 21:59 06/11/19 05:30 Morphine Sulfate (Morphine Sulfate) 1 mg Q4H PRN IVP mild pain 06/10/19 13:15 06/17/19 13:14 Morphine Sulfate (Morphine Sulfate) 2 mg Q4H PRN IVP Moderate Pain (Pain Scale 4-6) 06/10/19 13:15 06/17/19 13:14 Morphine Sulfate (Morphine Sulfate) 4 mg Q4H PRN IVP Severe Pain (Pain Scale 7-10) 06/10/19 13:15 06/17/19 13:14 Nitroglycerin (Ntg) 0.4 mg Q5M PRN SL Prn Chest Pain 06/10/19 13:15 07/10/19 13:14 Ondansetron HCl (Zofran) 4 mg Q6H PRN IVP Nausea & Vomiting 06/10/19 13:15 07/10/19 13:14 06/11/19 03:21 Pantoprazole (Protonix) 40 mg DAILY IVP 06/11/19 10:00 07/11/19 09:59 06/11/19 09:40 Polyethylene Glycol (Miralax) 17 gm DAILYPRN PRN ORAL Constipation 06/10/19 13:15 07/10/19 13:14 Prochlorperazine (Compazine) 10 mg Q6H PRN IVP Nausea & Vomiting 06/10/19 13:15 07/10/19 13:14 Sodium Chloride 1,000 ml @ 100 mls/hr Q10H IV 06/10/19 15:15 07/10/19 15:14 06/11/19 11:30 Vancomycin HCl (Vanco rx to dose) 1 ea DAILY PRN MISC Per rx protocol 06/10/19 16:30 07/10/19 16:29 Vancomycin HCl 750 mg/Sodium Chloride 275 ml @ 183.333 mls/hr Q12HR@0600,1800 IVPB 06/10/19 18:00 06/15/19 17:59 06/11/19 05:31 Zolpidem Tartrate (Ambien) 5 mg HSPRN PRN ORAL Insomnia 06/10/19 13:15 06/17/19 13:14 Reji Maire MD Jun 11, 2019 12:38
--- NOTE | 2019-06-11 14:00 | NUR ---
RESPIRATORY NOTE: Pt placed on CPAP PS 8 for 15 mins. Pt didn't tolerate weaning. Pt wasn't getting enough volume. Pt coughing up small amount of thick white/red secretions. Pt placed back on AC 28, VT 650 30% PEEP +5. Will continue to monitor. YAKELIN Price aware.
--- NOTE | 2019-06-11 14:00 | NUR ---
NURSE NOTES: FAILED WEANING TRIAL. BACK ON AC MODE. NO SIGN SOF DISTRESS OF THE MOMENT. WILL CONTINUE TO MONITOR.
--- NOTE | 2019-06-11 14:59 | NUR ---
RD ASSESSMENT & RECOMMENDATIONS SEE CARE ACTIVITY FOR COMPLETE ASSESSMENT DAILY ESTIMATED NEEDS: Needs based on Critical care/ 57kg 22-28 kcals/kg 9986-8015 total kcals 1.2-2 g protein/kg 68-114 g total protein 25-30 mL/kg 2638-3032 total fluid mLs NUTRITION DIAGNOSIS: Swallowing difficulty R/T respiratory status as evidenced by orally intubated, NPO at this time. CURRENT DIET:NPO PO DIET RECOMMENDATIONS: CD MIXER HELPER evaluation post extubation -> CCHO MED, LOW NA ENTERAL NUTRITION RECOMMENDATIONS: Vital AF 1.2 @ 50ml/hr x 24 hrs to provide 1200ml, 1440kcal, 90g prot, 1216ml free water * As medically able, obtaine GI access for TF. * Rec Vital AF 1.2 for critical care * Initiate Vital AF 1.2 @ 20ml/hr x 6 hrs, advance 10ml q 4-6 hrs as tolerated to goal rate * HOB over 30 degrees/ water flush per MD ADDITIONAL RECOMMENDATIONS: * Calibrated bedscale wt for accurate CBW * CD MIXER HELPER evaluation post extubation- h/o CVA, s/p extubation * Monitor lytes, replete as needed * Monitor BGs closely- h/o DM + on solumedrol
--- NOTE | 2019-06-11 15:29 | NUR ---
CASE MANAGEMENT: INITIAL REVIEW 59 YO M SHIV FROM HOME CC: RESP DISTRESS PMHx: HTN. ASTHMA. DM. CVA. SZ. SI:COPD EXACERBATION. T 98.1 HR 131 RR 20 B/P 100/49 SATS 98% ON 15L/NRB NA 134 GLU 161 MG 1.3 ALP 138 TOTAL CK 333 ABGs PH 7.128 PCO2 75.7 PO2 494.6 BE -6.5 IS: DUO NEB HHN X1 NS BOLUS X1 AZITHROMYCIN IV X1 PATIENT ADMITTED TO ICU 06/10/2019 @ 1103 DCP: PATIENT TO BE DISCHARGE TO HOME ONCE MEDICALLY CLEARED. PLAN OF CARE: VENT SUPPORT >>ETT 2D ECHO EF 60% Addendum: 06/11/19 at 1711 by Umu Gregory CM INTERQUAL MET
--- NOTE | 2019-06-11 16:00 | NUR ---
NURSE NOTES: PATIENT KEPT CLEAN AND DRY. TOLERATING VENT SETTINGS.NO SIGNS OF DISTRESS OF THE MOMENT. WILL CONTINUE TO MONITOR.
--- NOTE | 2019-06-11 17:07 | Pulmonolgy Critical Care Note ---
Critical Care - Asmt/Plan Problems: (1) Bipolar 1 disorder (2) HTN (hypertension) (3) CAD (coronary artery disease) (4) Lactic acid acidosis (5) COPD exacerbation (6) Acute hypercapnic respiratory failure (7) Ventilator dependence (8) Seizure disorder Assessment/Plan: Continue ventilatory support: AC 26 VC 650 Repeat ABG Decrease FiO2 and PEEP to keep SaO2 > 90% RTC and PRN DUOnebs SM 40 IV BID and taper Levaquin/Vanco per ID Keppra per neuro EEG not done Continue IVF Place NGT and start enteral feeds F/U cards recs Hep SQ FC Time Spent (Minutes): other - 35 Notes Reviewed: preparer, cardio, ID Discussed with: nurses, consultants Critical Care - Objective Last 24 Hour Vital Signs Date Time Temp Pulse Resp B/P (MAP) Pulse Ox O2 Delivery O2 Flow Rate FiO2 06/11/19 16:54 105 28 30 06/11/19 16:00 Mechanical Ventilator Mechanical Ventilator 06/11/19 16:00 40 06/11/19 16:00 107 06/11/19 16:00 107 28 123/89 (100) 100 06/11/19 15:30 111 32 30 06/11/19 15:00 106 28 135/89 (104) 100 06/11/19 14:00 110 28 122/67 (85) 100 06/11/19 13:00 93 28 146/99 (115) 100 06/11/19 12:59 101 31 100 Mechanical Ventilator 30 06/11/19 12:49 99 30 100 Mechanical Ventilator 40 06/11/19 12:49 96 28 30 06/11/19 12:00 40 06/11/19 12:00 109 06/11/19 12:00 88 28 134/85 (101) 100 06/11/19 12:00 Mechanical Ventilator Mechanical Ventilator 06/11/19 12:00 99.0 06/11/19 11:00 93 28 146/99 (115) 100 06/11/19 10:43 106 28 40 06/11/19 10:00 107 27 144/99 (114) 100 06/11/19 09:00 40 06/11/19 09:00 111 28 144/91 (108) 100 06/11/19 09:00 105 28 40 06/11/19 08:00 102 06/11/19 08:00 Mechanical Ventilator Mechanical Ventilator 06/11/19 08:00 99.2 106 27 147/95 (112) 100 06/11/19 07:32 107 28 98 Mechanical Ventilator 50 06/11/19 07:23 96 28 40 06/11/19 07:22 110 28 100 Mechanical Ventilator 40 06/11/19 07:00 91 27 143/89 (107) 100 06/11/19 06:00 87 28 141/91 (108) 100 06/11/19 05:00 98 28 150/89 (109) 100 06/11/19 04:55 101 29 40 06/11/19 04:00 40 06/11/19 04:00 98.8 95 28 140/93 (109) 100 06/11/19 04:00 Mechanical Ventilator Mechanical Ventilator 06/11/19 03:34 103 28 40 06/11/19 03:22 110 27 149/91 (110) 100 06/11/19 03:02 109 06/11/19 03:00 94 28 133/109 (117) 100 06/11/19 02:00 104 28 150/93 (112) 100 06/11/19 01:51 107 28 98 Mechanical Ventilator 50 06/11/19 01:35 108 28 100 Mechanical Ventilator 40 06/11/19 01:31 108 28 40 06/11/19 01:00 90 28 139/93 (108) 100 06/11/19 00:00 Mechanical Ventilator Mechanical Ventilator 06/11/19 00:00 40 06/11/19 00:00 98.5 94 28 130/89 (103) 100 06/10/19 23:15 93 06/10/19 23:00 97 26 144/97 (113) 100 06/10/19 22:37 94 28 40 06/10/19 22:00 103 26 148/87 (107) 100 06/10/19 21:00 90 28 144/91 (108) 100 06/10/19 20:49 80 28 50 06/10/19 20:00 50 06/10/19 20:00 Mechanical Ventilator Mechanical Ventilator 06/10/19 20:00 98.5 94 28 137/86 (103) 100 06/10/19 19:43 96 25 50 06/10/19 19:38 96 28 100 Mechanical Ventilator 50 06/10/19 19:30 93 06/10/19 19:28 96 28 100 Mechanical Ventilator 60 8/21/19 19:00 95 28 112/78 (89) 100 06/10/19 17:39 101 28 60 Status: awake, other - intubated Condition: critical HEENT: atraumatic, normocephalic Lungs: clear - but distant Heart: HR/BP stable Abdomen: soft, non-tender, active bowel sounds Extremities: no C/C/E Micro: Microbiology Date/Time Source Procedure Growth Status 06/10/19 14:50 Sputum Induced Gram Stain - Final Resulted 06/10/19 14:50 Sputum Induced Sputum Culture Pending Resulted Blood Sugars: BS controlled Critical Care - Subjective ROS Limited/Unobtainable: Yes ICU Day: 2 Intubation Day: 2 Interval Events: Failed SBT after 5 min 2/2 low TV's Stable on vent Condition: critical IV Access: peripheral - R FA x 2 EKG Rhythm: Sinus Tachycardia FI02: 30 Vent Support Breath Rate: 28 Vent Support Mode: AC Vent Tidal Volume: 650 Sputum Amount: Small PEEP: 5.0 PIP: 28 Secretions: Copious thin Fluids: NS@100 Drips: SLIV I&O: Intake and Output 06/10/19 06/11/19 19:00 07:00 Intake Total 3168.333 ml 1866.667 ml Output Total 300 ml 1020 ml Balance 2868.333 ml 846.667 ml Intake IV Total 3168.333 ml 1866.667 ml Output Urine Total 300 ml 1020 ml # Voids 1 Subjective: HELENE CXR: NAD ET-Tube: 7.5 ET Position: 24 Labs: Laboratory Tests Test 06/10/19 17:05 06/10/19 20:05 06/10/19 23:22 06/11/19 01:10 Lactic Acid Level 6.20 mmol/L (0.4-2.0) H 3.40 mmol/L (0.4-2.0) H 3.70 mmol/L (0.66-2.22) H Troponin I 0.040 ng/mL (0.000-0.056) Test 06/11/19 05:12 White Blood Count 9.4 K/UL (4.8-10.8) Red Blood Count 5.35 M/UL (4.70-6.10) Hemoglobin 15.5 G/DL (14.2-18.0) Hematocrit 46.5 % (42.0-52.0) Mean Corpuscular Volume 87 FL (80-99) Mean Corpuscular Hemoglobin 29.0 PG (27.0-31.0) Mean Corpuscular Hemoglobin Concent 33.4 G/DL (32.0-36.0) Red Cell Distribution Width 12.5 % (11.6-14.8) Platelet Count 152 K/UL (150-450) Mean Platelet Volume 7.9 FL (6.5-10.1) Neutrophils (%) (Auto) % (45.0-75.0) Lymphocytes (%) (Auto) % (20.0-45.0) Monocytes (%) (Auto) % (1.0-10.0) Eosinophils (%) (Auto) % (0.0-3.0) Basophils (%) (Auto) % (0.0-2.0) Differential Total Cells Counted 100 Neutrophils % (Manual) 93 % (45-75) H Lymphocytes % (Manual) 6 % (20-45) L Monocytes % (Manual) 1 % (1-10) Eosinophils % (Manual) 0 % (0-3) Basophils % (Manual) 0 % (0-2) Band Neutrophils 0 % (0-8) Platelet Estimate Adequate Platelet Morphology Normal Red Blood Cell Morphology Normal Sodium Level 136 MMOL/L (136-145) Potassium Level 4.3 MMOL/L (3.5-5.1) Chloride Level 98 MMOL/L (98-107) Carbon Dioxide Level 19 MMOL/L (21-32) L Anion Gap 19 mmol/L (5-15) H Blood Urea Nitrogen 16 mg/dL (7-18) Creatinine 1.2 MG/DL (0.55-1.30) Estimat Glomerular Filtration Rate > 60 mL/min (>60) Glucose Level 123 MG/DL (74-106) H Lactic Acid Level 2.00 mmol/L (0.4-2.0) Calcium Level 9.7 MG/DL (8.5-10.1) Phosphorus Level 1.4 MG/DL (2.5-4.9) L Magnesium Level 1.1 MG/DL (1.8-2.4) L Total Bilirubin 0.6 MG/DL (0.2-1.0) Direct Bilirubin < 0.1 MG/DL (0.0-0.3) Aspartate Amino Transf (AST/SGOT) 29 U/L (15-37) Alanine Aminotransferase (ALT/SGPT) 27 U/L (12-78) Alkaline Phosphatase 109 U/L (46-116) Total Protein 8.8 G/DL (6.4-8.2) H Albumin 4.0 G/DL (3.4-5.0) Agapito Chino MD Jun 11, 2019 17:07
--- NOTE | 2019-06-11 18:00 | NUR ---
NURSE NOTES: SEEN AND EXAMINED BY DR LITTLE WITH NEW ORDERS MADE. WILL CONTINUE TO MONITOR.
--- NOTE | 2019-06-11 18:21 | General Progress Note ---
Assessment/Plan Assessment/Plan: 59 yo M PMH of pericarditis?, COPD, seizures was intubated in ED for acute hypoxia # Acute Hypoxic and Hypercapnic Respiratory failure s/p Intubation 06/10 on admission # COPD exacerbation - cont azithro - ID consult - f/u cultures and repeat cxr in am reviewed - vent settings noted: Reviewed - wean vent as tolerated, trial of CPAP and SPT, plan for possible extubation - echo within normal limits # Lactic acidosis worsening, ddx: seizures, sepsis, s.e. of breathing treatment, ; resolved - continue to monitor # Seizure d/o - EEG, follow-up results - cont keppra - neuro consult appreciate recs - ct head negative # h/o Pericarditic - f/u echo as above, reviewed # Hyponatremia, resolved - IV - ctm # Hypomagnesemia - replace - ctm, replace FULL CODE 45 minutes of critical care time spent evaluating patient's vitals, exam, labs, imaging, interpretation of results, coordination of care among many specialists. Subjective Date patient seen: Jun 11, 2019 Allergies: Coded Allergies: PENICILLINS (Verified Allergy, Unknown, 07/04/16) Subjective Patient doing well more alert. He is able to follow commands and communicate by writing. Plan for possible extubation today. No seizing. Objective Last 24 Hour Vital Signs Date Time Temp Pulse Resp B/P (MAP) Pulse Ox O2 Delivery O2 Flow Rate FiO2 06/11/19 16:54 105 28 30 06/11/19 16:00 Mechanical Ventilator Mechanical Ventilator 06/11/19 16:00 40 06/11/19 16:00 107 06/11/19 16:00 107 28 123/89 (100) 100 06/11/19 15:30 111 32 30 06/11/19 15:00 106 28 135/89 (104) 100 06/11/19 14:00 110 28 122/67 (85) 100 06/11/19 14:00 100 06/11/19 13:00 93 28 146/99 (115) 100 06/11/19 12:59 101 31 100 Mechanical Ventilator 30 06/11/19 12:49 99 30 100 Mechanical Ventilator 40 06/11/19 12:49 96 28 30 06/11/19 12:00 40 06/11/19 12:00 109 06/11/19 12:00 88 28 134/85 (101) 100 06/11/19 12:00 Mechanical Ventilator Mechanical Ventilator 06/11/19 12:00 99.0 06/11/19 11:00 93 28 146/99 (115) 100 06/11/19 10:43 106 28 40 06/11/19 10:00 107 27 144/99 (114) 100 06/11/19 09:00 40 06/11/19 09:00 111 28 144/91 (108) 100 06/11/19 09:00 105 28 40 06/11/19 08:00 102 06/11/19 08:00 Mechanical Ventilator Mechanical Ventilator 06/11/19 08:00 99.2 106 27 147/95 (112) 100 06/11/19 07:32 107 28 98 Mechanical Ventilator 50 06/11/19 07:23 96 28 40 06/11/19 07:22 110 28 100 Mechanical Ventilator 40 06/11/19 07:00 91 27 143/89 (107) 100 06/11/19 06:00 87 28 141/91 (108) 100 06/11/19 05:00 98 28 150/89 (109) 100 06/11/19 04:55 101 29 40 06/11/19 04:00 40 06/11/19 04:00 98.8 95 28 140/93 (109) 100 06/11/19 04:00 Mechanical Ventilator Mechanical Ventilator 06/11/19 03:34 103 28 40 06/11/19 03:22 110 27 149/91 (110) 100 06/11/19 03:02 109 06/11/19 03:00 94 28 133/109 (117) 100 06/11/19 02:00 104 28 150/93 (112) 100 06/11/19 01:51 107 28 98 Mechanical Ventilator 50 06/11/19 01:35 108 28 100 Mechanical Ventilator 40 06/11/19 01:31 108 28 40 06/11/19 01:00 90 28 139/93 (108) 100 06/11/19 00:00 Mechanical Ventilator Mechanical Ventilator 06/11/19 00:00 40 06/11/19 00:00 98.5 94 28 130/89 (103) 100 06/10/19 23:15 93 06/10/19 23:00 97 26 144/97 (113) 100 06/10/19 22:37 94 28 40 06/10/19 22:00 103 26 148/87 (107) 100 06/10/19 21:00 90 28 144/91 (108) 100 06/10/19 20:49 80 28 50 06/10/19 20:00 50 06/10/19 20:00 Mechanical Ventilator Mechanical Ventilator 06/10/19 20:00 98.5 94 28 137/86 (103) 100 06/10/19 19:43 96 25 50 06/10/19 19:38 96 28 100 Mechanical Ventilator 50 06/10/19 19:30 93 06/10/19 19:28 96 28 100 Mechanical Ventilator 60 06/10/19 19:00 95 28 112/78 (89) 100 Intake and Output 06/10/19 06/11/19 19:00 07:00 Intake Total 3168.333 ml 1866.667 ml Output Total 300 ml 1020 ml Balance 2868.333 ml 846.667 ml Intake IV Total 3168.333 ml 1866.667 ml Output Urine Total 300 ml 1020 ml # Voids 1 Laboratory Tests 06/10/19 20:05: Troponin I 0.040 06/10/19 23:22: Lactic Acid Level 3.40H 06/11/19 01:10: Lactic Acid Level 3.70H 06/11/19 05:12: Lactic Acid Level 2.00, White Blood Count 9.4, Red Blood Count 5.35, Hemoglobin 15.5, Hematocrit 46.5, Mean Corpuscular Volume 87, Mean Corpuscular Hemoglobin 29.0, Mean Corpuscular Hemoglobin Concent 33.4, Red Cell Distribution Width 12.5 , Platelet Count 152, Mean Platelet Volume 7.9, Neutrophils (%) (Auto) , Lymphocytes (%) (Auto) , Monocytes (%) (Auto) , Eosinophils (%) (Auto) , Basophils (%) (Auto) , Differential Total Cells Counted 100, Neutrophils % ( Manual) 93H, Lymphocytes % (Manual) 6L, Monocytes % (Manual) 1, Eosinophils % ( Manual) 0, Basophils % (Manual) 0, Band Neutrophils 0, Platelet Estimate Adequate, Platelet Morphology Normal, Red Blood Cell Morphology Normal, Sodium Level 136, Potassium Level 4.3, Chloride Level 98, Carbon Dioxide Level 19L, Anion Gap 19H, Blood Urea Nitrogen 16, Creatinine 1.2, Estimat Glomerular Filtration Rate > 60, Glucose Level 123H, Calcium Level 9.7, Phosphorus Level 1.4L, Magnesium Level 1.1L, Total Bilirubin 0.6, Direct Bilirubin < 0.1, Aspartate Amino Transf (AST/SGOT) 29, Alanine Aminotransferase (ALT/SGPT) 27, Alkaline Phosphatase 109, Total Protein 8.8H, Albumin 4.0 Height (Feet): 5 Height (Inches): 5.00 Weight (Pounds): 128 Objective GENERAL: Intubated, no acute distress, sitting comfortably, alert HEENT: NCAT, non-icteric eyes, pupils PERRLA Neck: No cervical lymphadenopathy, trachea midline CV: Regular rate and rhythm, no murmurs rubs or gallops RESP: Clear to auscultation bilaterally, no wheezes/rhonchi/crackles EXT: Normal muscle tone NEURO: No obvious deficits, Astrid Caputo DO Jun 11, 2019 18:21
--- NOTE | 2019-06-11 18:42 | Diagnostic Imaging Report ---
Indication: Post nasogastric tube placement Technique: Supine view of the abdomen Comparison: 02/11/2019 Findings: There is a nasogastric tube in place, tip of which projects at the level of the gastric fundus, proximal port just beyond the gastroesophageal junction. Considerable gas is seen in nondilated upper abdominal large and small bowel in included lungs are clear. There is an endotracheal tube in good position Impression: Satisfactory nasogastric intubation Other findings as noted This agrees with the preliminary interpretation provided overnight by [facility] teleradiology service.
--- NOTE | 2019-06-11 19:00 | NUR ---
NURSE NOTES: INSERTED OGT, KUB XRAY DONE FOR CONFIRMATION. FEEDS STARTED AT 20ML/HR. WILL CONTINUE TO MONITOR.
--- NOTE | 2019-06-11 19:25 | NUR ---
RESPIRATORY NOTE: Received pt on AC/VC RR 28 VT 650 FIO2 30% peep + 5. Intubated with 7.5 size ett at 24 at the lip secured by anchor fast. Pt is alert and knows how to suction his on mouth. Will sxn prn. Ambu bag near bedside. Vent is plugged into red outlet. Will continue to monitor
--- NOTE | 2019-06-11 19:33 | NUR ---
HAND-OFF: Report given to Yamilet Mcbride RN.
--- NOTE | 2019-06-11 19:35 | NUR ---
NURSE NOTES: PATIENT RESPONSE TO NAME, ABLE TO FOLLOW COMMANDS AT THIS TIME, ON ETT TO VENT AC 28/TV 650/FIO2 30%/PEEP 5, O2 SATURATION 100% NOTED, ABDOMEN SOFT, HYPOACTIVE BOWEL SOUND TO 4 QUADRANTS, OGT INTACT AND PATENT, ONGOING VITAL AF 1.2, NO RESIDUE NOTED, KEPT HOB 30 DEGREES, PERIPHERAL LINE TO RIGHT FORE ARM 20G AND 22G, INTACT AND PATENT, ONGOING IV FLUID, NS AT 100ML/HR VIA RIGHT SIDE 20G, MADE LOWER BED POSITION, ON BED ALARM, PROVIDED CALL LIGHT WITHIN REACH, WILL CONTINUE TO MONITOR.
--- NOTE | 2019-06-11 20:06 | Neurology Progress Note ---
Interim History Interim History Interim History Mr. Singh feels better. He is still in the ICU intubated and artificially ventilated. He has been seizure-free. He denies any new neurological problems. He continues to be weak on the right side but he feels that the weakness has not worsened. Review of Systems Neuro Review of Systems Benign. Objective Physical Exam Last Vital Signs Date Time Temp Pulse Resp B/P (MAP) Pulse Ox O2 Delivery O2 Flow Rate FiO2 06/11/19 19:35 108 30 100 Mechanical Ventilator 30 06/11/19 19:00 117/89 (98) 06/11/19 12:00 99.0 06/10/19 15:40 2.0 Laboratory Tests Test 06/10/19 20:05 06/10/19 23:22 06/11/19 01:10 06/11/19 05:12 Troponin I 0.040 ng/mL (0.000-0.056) Lactic Acid Level 3.40 mmol/L (0.4-2.0) H 3.70 mmol/L (0.66-2.22) H 2.00 mmol/L (0.4-2.0) White Blood Count 9.4 K/UL (4.8-10.8) Red Blood Count 5.35 M/UL (4.70-6.10) Hemoglobin 15.5 G/DL (14.2-18.0) Hematocrit 46.5 % (42.0-52.0) Mean Corpuscular Volume 87 FL (80-99) Mean Corpuscular Hemoglobin 29.0 PG (27.0-31.0) Mean Corpuscular Hemoglobin Concent 33.4 G/DL (32.0-36.0) Red Cell Distribution Width 12.5 % (11.6-14.8) Platelet Count 152 K/UL (150-450) Mean Platelet Volume 7.9 FL (6.5-10.1) Neutrophils (%) (Auto) % (45.0-75.0) Lymphocytes (%) (Auto) % (20.0-45.0) Monocytes (%) (Auto) % (1.0-10.0) Eosinophils (%) (Auto) % (0.0-3.0) Basophils (%) (Auto) % (0.0-2.0) Differential Total Cells Counted 100 Neutrophils % (Manual) 93 % (45-75) H Lymphocytes % (Manual) 6 % (20-45) L Monocytes % (Manual) 1 % (1-10) Eosinophils % (Manual) 0 % (0-3) Basophils % (Manual) 0 % (0-2) Band Neutrophils 0 % (0-8) Platelet Estimate Adequate Platelet Morphology Normal Red Blood Cell Morphology Normal Sodium Level 136 MMOL/L (136-145) Potassium Level 4.3 MMOL/L (3.5-5.1) Chloride Level 98 MMOL/L (98-107) Carbon Dioxide Level 19 MMOL/L (21-32) L Anion Gap 19 mmol/L (5-15) H Blood Urea Nitrogen 16 mg/dL (7-18) Creatinine 1.2 MG/DL (0.55-1.30) Estimat Glomerular Filtration Rate > 60 mL/min (>60) Glucose Level 123 MG/DL (74-106) H Calcium Level 9.7 MG/DL (8.5-10.1) Phosphorus Level 1.4 MG/DL (2.5-4.9) L Magnesium Level 1.1 MG/DL (1.8-2.4) L Total Bilirubin 0.6 MG/DL (0.2-1.0) Direct Bilirubin < 0.1 MG/DL (0.0-0.3) Aspartate Amino Transf (AST/SGOT) 29 U/L (15-37) Alanine Aminotransferase (ALT/SGPT) 27 U/L (12-78) Alkaline Phosphatase 109 U/L (46-116) Total Protein 8.8 G/DL (6.4-8.2) H Albumin 4.0 G/DL (3.4-5.0) Test 06/11/19 19:35 Arterial Blood pH 7.554 (7.350-7.450) Arterial Blood Partial Pressure CO2 21.5 mmHg (35.0-45.0) *L Arterial Blood Partial Pressure O2 139.4 mmHg (75.0-100.0) H Arterial Blood HCO3 18.6 mmol/L (22.0-26.0) L Arterial Blood Oxygen Saturation 98.5 % (95-100) Arterial Blood Base Excess -1.9 (-2-2) Bartolo Test Positive Neurologic Exam Objective PHYSICAL EXAMINATION: GENERAL: He is a well-developed relatively well-nourished black gentleman, lying in an ICU bed, connected to a ventilator via an orotracheal tube. HEAD: Normocephalic and atraumatic. EENT: Examination benign. NECK: No neck rigidity was observed. NEUROLOGICAL EXAMINATION: MENTAL STATUS EXAMINATION: He was awake and alert. He was oriented to self and hospital only. He was unable to give me the name of the hospital and had no idea what the date was. He was able to recall 3/3 words immediately, but could not remember them in 1 minute and 3 minutes. He knew that Laila is President, but could not remember Presidents prior to that. He was unable to cooperate for further mental status testing. SPEECH: Could not be tested because he was intubated, but he did mouth a few words. LANGUAGE: He was able to comprehend relatively well and follow commands, but could not express himself except for some yes/no answers and mouthing a few words. CRANIAL NERVE EXAMINATION: II: The visual velasquez were intact to threat. III, IV & : The external ocular movements were full and the pupils 3 mm in diameter, equal, round, regular, and reactive to light. V: He had normal facial sensations and the temporales, masseters, and pterygoids functioned normally. VII: He had a mild right seventh central facial paresis. VIII: He was able to hear and had no nystagmus. IX & X: The gag reflex was present, but subdued on moving the endotracheal tube. XI: The sternocleidomastoids and trapezii did function. XII: Could not be tested adequately. MOTOR SYSTEM: The tone was minimally increased with a mild degree of spasticity on the right side. Examination of muscle mass revealed no focal wasting. Examination of power revealed G 5/5 power except for G 4+/5 power in the right finger extensors and iliopsoas. SENSORY EXAMINATION: He had intact sensations to pinprick and light touch. He was unable to cooperate for other sensory modalities. REFLEXES: 2+ on the right and 1+ on the left in the biceps, triceps, brachioradialis, and knees, 0 at both ankles. The plantar responses were flexor bilaterally. COORDINATION, STANCE & GAIT: Could not be tested. Impression/Recommendations Diagnostic Impression 1. Mr. Kevin Singh is a 59-year-old, right-handed, black gentleman, with a past history of COPD, hypertension, diabetes mellitus, dyslipidemia, cerebrovascular disease with prior stroke associated with right-sided weakness, and an undefined seizure disorder for which he takes Keppra 500 mg twice a day, with good seizure control. He was hospitalized in the early hours of 2018 after he developed increasing shortness of breath and he became significantly more short of breath and had to be intubated and artificially ventilated. 2. He feels better. He is still in the ICU intubated and artificially ventilated. He has been seizure-free. He denies any new neurological problems. He continues to be weak on the right side but he feels that the weakness has not worsened. 3. On neurological examination, at this time, he is oriented to self and hospital only. He has significant problems with recent memory, can only remember Trump as president, and is unable to perform further mental status testing. Speech could not be tested and language could also be tested adequately. He does have a right seventh central facial paresis. Right hemiparesis involving the finger extensors and iliopsoas. Brisker deep tendon reflexes on the right side compared to the left. 4. The EEG performed on 06/10/2019 revealed an encephalopathy of a moderate degree with a definite toxic component as evidenced by generalized spindle-like activity but no interictal or ictal discharges. 5. The patient's history and neurological examination are most consistent with an acute exacerbation of COPD with respiratory failure. 6. He does have a prior history of stroke with right hemiparesis and in addition , a history of a seizure disorder which is poorly defined. 7. His present altered mental state is related to an encephalopathy due to respiratory failure, the underlying structural brain disease related to the stroke, and the mind altering drugs that he is getting. Recommendations 1. Continue present management. 2. Continue Keppra 500 mg intravenously every 12 hours. When the patient is able to take oral medicines, the dose of Keppra can be changed to an identical dose given orally. 3. Treatment of respiratory failure as per Dr. Chino. 4. Observe closely. Royer Corona M.D., M.S.P.H. Royer Corona MD Jun 11, 2019 20:06
--- NOTE | 2019-06-11 20:15 | Electroencephalogram ---
DATE OF PROCEDURE: 06/10/2019 REQUESTING PHYSICIAN: Agapito Chino M.D. READING PHYSICIAN: Royer Corona M.D. PROCEDURE PERFORMED: Electroencephalogram. HISTORY: This EEG was performed on a 59-year-old gentleman with a history of multiple medical problems including stroke and a seizure disorder who was hospitalized for respiratory failure. The purpose of this EEG was to evaluate the patient for the degree and type of cerebral dysfunction and to exclude ongoing ictal or interictal phenomena. TECHNICAL NOTE: This EEG was performed on a [employer] with electrodes placed on the scalp according to the International 10-20 system. [id number]-[id number] and efceu-vy-dft montages were used. The EEG was technically satisfactory and was performed predominantly while the patient was drowsy and sleeping. No definite awake tracing could be obtained. OBSERVATIONS: In the drowsy state, the background activity consisted of 4-5 Hz theta activity. Stage II sleep was characterized by further slowing of the background in the delta and theta range, the presence of vertex waves, and 14 Hz sleep spindles. In addition, generalized 12-14 Hz spindles were also seen throughout the tracing representing drug spindles. Stage III sleep was characterized by slowing of the background predominantly in the delta range with continued generalized drug spindles and some sleep spindles. No definite focal abnormalities or epileptiform discharges were seen. When attempts were made to arouse the patient, full arousal could not be obtained. IMPRESSION: 1. This is an abnormal EEG characterized by inability to arouse the patient fully. 2. Slowing of the background activity. 3. Presence of drug spindles seen throughout the tracing. COMMENT: This study is consistent with an encephalopathy of a moderate degree. Please note that no interictal discharges were seen on this EEG, however, the absence of interictal discharges does not rule out a seizure disorder. Royer Corona M.D., M.S.P.H. DR: Josh JOB#: [id number] MTDD
--- NOTE | 2019-06-11 20:52 | NUR ---
NURSE NOTES: CALLED DR. LITTLE REGARDING ABG'S RESULT, RECEIVED NEW VENT SETTING ORDER, CARRIED OUT.
--- NOTE | 2019-06-11 23:35 | NUR ---
NURSE NOTES: PATIENT CALM, DENIED PAIN OR SOB AT THIS TIME.
[2019-06-12] VITALS (25 sets, daily range): BP systolic 104–149; BP diastolic 53–100
[2019-06-12] MEDS: Albuterol/Ipratropium 3ml neb HHN SCH ×4 (01:15→19:34)
--- NOTE | 2019-06-12 02:10 | NUR ---
NURSE NOTES: PATIENT ASLEEP STATUS AT THIS TIME.
--- NOTE | 2019-06-12 04:11 | NUR ---
NURSE NOTES: MORNING CARE WAS DONE, REFUSED ORAL CARE DUE TO NAUSEA. GIVEN ZOFRAN 4MG BY IVP PRN ORDERED, WILL CONTINUE TO MONITOR.
[2019-06-12 04:21] LABS: HEMATOCRIT 34.8 % (42.0-52.0); HEMOGLOBIN 11.8 G/DL (14.2-18.0); MEAN CORPUSCULAR VOLUME 86 FL (80-99); PLATELET COUNT 140 K/UL (150-450); RED BLOOD COUNT 4.03 M/UL (4.70-6.10); RED CELL DISTRIBUTION WIDTH 12.4 % (11.6-14.8); WHITE BLOOD COUNT 11.5 K/UL (4.8-10.8)
[2019-06-12] MEDS: levETIRAcetam 500mg/NS100ml 100 ML IVPB SCH ×2 (04:40→17:13)
[2019-06-12 05:17] LABS: ALANINE AMINOTRANSFERASE 21 U/L (12-78); ALBUMIN 2.7 G/DL (3.4-5.0); ALBUMIN/GLOBULIN RATIO 0.7 (1.0-2.7); ALKALINE PHOSPHATASE 73 U/L (46-116); ANION GAP 8 mmol/L (5-15); ASPARTATE AMINO TRANSFERASE 28 U/L (15-37); BILIRUBIN,TOTAL 0.3 MG/DL (0.2-1.0); BLOOD UREA NITROGEN 17 mg/dL (7-18); CALCIUM 8.5 MG/DL (8.5-10.1); CARBON DIOXIDE 22 MMOL/L (21-32); CHLORIDE 109 MMOL/L (98-107); CREATININE 1.1 MG/DL (0.55-1.30); POTASSIUM 3.4 MMOL/L (3.5-5.1); SODIUM 139 MMOL/L (136-145)
--- NOTE | 2019-06-12 05:35 | NUR ---
NURSE NOTES: VANCO TROUGH PENDING STATUS.
[2019-06-12 05:57] LABS: PHOSPHORUS 2.9 MG/DL (2.5-4.9)
--- NOTE | 2019-06-12 05:58 | NUR ---
NURSE NOTES: CALLED [facility] REGARDING VANCO TROUGH LEVEL 9.5 THAT SPOKE WITH PHARMACIST, WILL BE INCREASE DOSE AND MAKE NEW SCHEDULE.
--- NOTE | 2019-06-12 06:30 | NUR ---
NURSE NOTES: CALLED RT REGARDING DR. LITTLE'S ORDER FOR WEANING THAT RT WAS AWARE.
--- NOTE | 2019-06-12 07:00 | NUR ---
RESPIRATORY NOTE: Received pt on ordered vent settings. Pt airway is patent and secured. No resp distress noted. Suctioned pt prn. Vent alarms are on and audible. Vent is plugged into red outlet. Will monitor pt progress.
--- NOTE | 2019-06-12 07:20 | NUR ---
HAND-OFF: Report given to Bal REDDY RN.
--- NOTE | 2019-06-12 07:25 | NUR ---
NURSE NOTES: Report received from Bob Mcbride RN.Pt awake,alert with ETT to Vent ,on weaning process at this time ,appears to tolerate weaning,no resp distress presented,with OGTF Vital AF 1.2 at 30 but turned off,denies any c/o pain or discomfort,SR on the monitor ,IV site x2 intact,to RFA,with IVF NS at 100 ml/hr,SR up x2 HOB elevated,call juarez within reach at bedside,bed lock in lowest position will continue with plans of care.
[2019-06-12] MEDS ORDERED: Vancomycin 750mg/NS 275ml IVPB SCH ×2 (08:00)
--- NOTE | 2019-06-12 08:06 | Pulmonolgy Critical Care Note ---
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 and advance oral diet F/U cards recs Hep SQ FC Time Spent (Minutes): other - 35 Notes Reviewed: vice president pharmacy, ID, neuro Discussed with: nurses, consultants Critical Care - Objective Last 24 Hour Vital Signs Date Time Temp Pulse Resp B/P (MAP) Pulse Ox O2 Delivery O2 Flow Rate FiO2 06/12/19 07:12 91 23 100 Mechanical Ventilator 30 06/12/19 07:02 94 12 100 Mechanical Ventilator 40 06/12/19 07:02 99 22 30 30 06/12/19 07:00 89 18 143/86 (105) 100 06/12/19 06:00 80 20 133/81 (98) 100 06/12/19 05:00 70 22 125/80 (95) 100 06/12/19 04:59 71 22 30 06/12/19 04:17 82 22 134/82 (99) 100 06/12/19 04:00 Mechanical Ventilator Mechanical Ventilator 06/12/19 04:00 97.7 82 22 148/100 (116) 100 06/12/19 04:00 30 06/12/19 03:35 74 06/12/19 03:00 74 22 132/85 (101) 100 06/12/19 02:46 78 22 30 06/12/19 02:00 71 22 137/78 (97) 100 06/12/19 01:23 88 23 100 Mechanical Ventilator 30 06/12/19 01:15 79 23 100 Mechanical Ventilator 30 06/12/19 01:14 79 23 30 06/12/19 01:00 71 22 127/82 (97) 100 06/12/19 00:09 73 06/12/19 00:00 Mechanical Ventilator Mechanical Ventilator 06/12/19 00:00 30 06/12/19 00:00 98.5 78 22 130/86 (101) 100 06/11/19 23:00 81 22 133/85 (101) 100 06/11/19 22:49 88 24 30 06/11/19 22:00 91 22 132/86 (101) 100 06/11/19 21:00 96 22 126/85 (99) 100 06/11/19 20:55 98 23 30 06/11/19 20:55 30 06/11/19 20:00 98.3 107 28 127/84 (98) 100 06/11/19 20:00 30 06/11/19 20:00 Mechanical Ventilator Mechanical Ventilator 06/11/19 19:47 108 06/11/19 19:35 108 30 100 Mechanical Ventilator 30 06/11/19 19:28 103 28 100 Mechanical Ventilator 30 06/11/19 19:24 103 28 30 06/11/19 19:00 101 28 117/89 (98) 100 06/11/19 18:00 106 28 142/91 (108) 100 06/11/19 17:00 103 28 139/83 (101) 99 06/11/19 16:54 105 28 30 06/11/19 16:00 Mechanical Ventilator Mechanical Ventilator 06/11/19 16:00 40 06/11/19 16:00 107 06/11/19 16:00 107 28 123/89 (100) 100 06/11/19 15:30 111 32 30 06/11/19 15:00 106 28 135/89 (104) 100 06/11/19 14:00 110 28 122/67 (85) 100 06/11/19 14:00 100 06/11/19 13:00 93 28 146/99 (115) 100 06/11/19 12:59 101 31 100 Mechanical Ventilator 30 06/11/19 12:49 99 30 100 Mechanical Ventilator 40 06/11/19 12:49 96 28 30 06/11/19 12:00 40 06/11/19 12:00 109 06/11/19 12:00 88 28 134/85 (101) 100 06/11/19 12:00 Mechanical Ventilator Mechanical Ventilator 06/11/19 12:00 99.0 06/11/19 11:00 93 28 146/99 (115) 100 06/11/19 10:43 106 28 40 06/11/19 10:00 107 27 144/99 (114) 100 06/11/19 09:00 40 06/11/19 09:00 111 28 144/91 (108) 100 06/11/19 09:00 105 28 40 Status: awake - on vent Condition: improving HEENT: atraumatic, normocephalic Lungs: clear - but distant Heart: HR/BP stable Abdomen: soft, non-tender, active bowel sounds Extremities: no C/C/E Micro: Microbiology Date/Time Source Procedure Growth Status 06/10/19 09:25 Blood Blood Culture - Preliminary NO GROWTH AFTER 24 HOURS Resulted 06/10/19 09:10 Blood Blood Culture - Preliminary NO GROWTH AFTER 24 HOURS Resulted 06/10/19 14:50 Sputum Induced Gram Stain - Final Resulted 06/10/19 14:50 Sputum Induced Sputum Culture - Preliminary NORMAL UPPER RESPIRATORY LAURA AT 24 ... Resulted Blood Sugars: BS controlled Critical Care - Subjective ROS Limited/Unobtainable: Yes ICU Day: 3 Intubation Day: 3 Interval Events: Passed SBT Awake and alert No sig secretions AFVSS HD stable Condition: improving IV Access: peripheral - R FA x 2 EKG Rhythm: Sinus Rhythm FI02: 30 Vent Support Breath Rate: 22 Vent Support Mode: AC Vent Tidal Volume: 550 Sputum Amount: Small PEEP: 5.0 PIP: 23 Secretions: No sig Fluids: NS@100 Drips: N/A Tube Feeding Amount: 0 I&O: Intake and Output 06/11/19 06/12/19 19:00 07:00 Intake Total 2303.333 ml 2161.667 ml Output Total 800 ml 1500 ml Balance 1503.333 ml 661.667 ml Intake Free Water 50 ml 300 ml IV Total 2233.333 ml 1591.667 ml Tube Feeding 20 ml 220 ml Other 50 ml Output Urine Total 800 ml 1500 ml Subjective: Denies complaints Eager to be extubated ET-Tube: 7.5 ET Position: 24 Labs: Laboratory Tests Test 06/11/19 19:35 06/12/19 03:30 Arterial Blood pH 7.554 (7.350-7.450) Arterial Blood Partial Pressure CO2 21.5 mmHg (35.0-45.0) *L Arterial Blood Partial Pressure O2 139.4 mmHg (75.0-100.0) H Arterial Blood HCO3 18.6 mmol/L (22.0-26.0) L Arterial Blood Oxygen Saturation 98.5 % (95-100) Arterial Blood Base Excess -1.9 (-2-2) Bartolo Test Positive White Blood Count 11.5 K/UL (4.8-10.8) H Red Blood Count 4.03 M/UL (4.70-6.10) L Hemoglobin 11.8 G/DL (14.2-18.0) L Hematocrit 34.8 % (42.0-52.0) L Mean Corpuscular Volume 86 FL (80-99) Mean Corpuscular Hemoglobin 29.2 PG (27.0-31.0) Mean Corpuscular Hemoglobin Concent 33.8 G/DL (32.0-36.0) Red Cell Distribution Width 12.4 % (11.6-14.8) Platelet Count 140 K/UL (150-450) L Mean Platelet Volume 8.6 FL (6.5-10.1) Neutrophils (%) (Auto) % (45.0-75.0) Lymphocytes (%) (Auto) % (20.0-45.0) Monocytes (%) (Auto) % (1.0-10.0) Eosinophils (%) (Auto) % (0.0-3.0) Basophils (%) (Auto) % (0.0-2.0) Neutrophils % (Manual) Pending Lymphocytes % (Manual) Pending Platelet Estimate Pending Platelet Morphology Pending Sodium Level 139 MMOL/L (136-145) Potassium Level 3.4 MMOL/L (3.5-5.1) L Chloride Level 109 MMOL/L (98-107) H Carbon Dioxide Level 22 MMOL/L (21-32) Anion Gap 8 mmol/L (5-15) Blood Urea Nitrogen 17 mg/dL (7-18) Creatinine 1.1 MG/DL (0.55-1.30) Estimat Glomerular Filtration Rate > 60 mL/min (>60) Glucose Level 149 MG/DL (74-106) H Calcium Level 8.5 MG/DL (8.5-10.1) Phosphorus Level 2.9 MG/DL (2.5-4.9) Magnesium Level 2.2 MG/DL (1.8-2.4) Total Bilirubin 0.3 MG/DL (0.2-1.0) Aspartate Amino Transf (AST/SGOT) 28 U/L (15-37) Alanine Aminotransferase (ALT/SGPT) 21 U/L (12-78) Alkaline Phosphatase 73 U/L (46-116) Total Protein 6.6 G/DL (6.4-8.2) Albumin 2.7 G/DL (3.4-5.0) L Globulin 3.9 g/dL Albumin/Globulin Ratio 0.7 (1.0-2.7) L Vancomycin Level Trough 9.5 ug/mL (5.0-12.0) Agapito Chino MD Jun 12, 2019 08:06
--- NOTE | 2019-06-12 08:20 | NUR ---
NURSE NOTES: Dr Chino at bedside,aware of pt's tolerating weaning with orders to extubate pt.Other orders noted.
--- NOTE | 2019-06-12 08:40 | NUR ---
RESPIRATORY NOTE: Pt extubated per MD order. No stridor or any resp distress noted. Suctioned pt prn. Pt placed on 3Lpm O2 via Nasal Cannula. Will monitor pt progress.
[2019-06-12] MEDS: Pantoprazole Inj IVP SCH (08:47)
[2019-06-12] MEDS: Solu-MEDROL 40mg Inj IVP SCH ×2 (08:48→20:54)
[2019-06-12] MEDS: Docusate 100mg cap ORAL SCH ×2 (08:49→20:54)
[2019-06-12] MEDS: Heparin 5000 units/ml inj SUBQ SCH ×2 (08:51→20:56)
--- NOTE | 2019-06-12 10:00 | NUR ---
NURSE NOTES: Pt stable in no resp distress,extubated from vent at 0840,placed on 3L NC,tolerating well,resp reg non labored.
--- NOTE | 2019-06-12 12:38 | Infectious Diseases Prog Note ---
Assessment/Plan Assessment/Plan ASSESSMENT AND PLAN: 1. sepsis, leukocytosis, respiratory failure, lactic acidosis, sob, sz, aspiration risk with sz - levofloxacin, flagyl, discontinue vancomycin - now extubated - sputum culture with normal romeo - monitor labs and chest x-ray 2. Mild hyponatremia. 3. The patient has a history of seizures. 4. CVA. 5. Aspiration risk. 6. Hypertension. 7. Asthma. 8. COPD. 9. Diabetes. 10. Blood sugar and blood pressure treatment per primary. 11. CAD. 12. Bipolar disease. 13. Vent dependency. 14. IV steroids. 15. Lactic acidosis. 16. Allergy to penicillin, tolerates cephalosporin. 17. Social history negative. 18. Family history noncontributory. 19. MAR was noted. 20. Case discussed with RN. 21. Continue treatment per primary consultants. Subjective Constitutional: Reports: fatigue; Denies: fever HEENT: Reports: congestion Respiratory: Reports: shortness of breath Cardiovascular: Denies: chest pain Gastrointestinal/Abdominal: Denies: nausea, vomiting, diarrhea Genitourinary: Reports: other - no longoria Neurologic: Denies: headache Psychiatric: Denies: depression Skin: Denies: rash Hematologic: Denies: bleeding Musculoskeletal: Denies: pain Allergies: Coded Allergies: PENICILLINS (Verified Allergy, Unknown, 07/04/16) Objective Vital Signs Last 24 Hour Vital Signs Date Time Temp Pulse Resp B/P (MAP) Pulse Ox O2 Delivery O2 Flow Rate FiO2 06/12/19 11:00 69 15 149/82 (104) 100 06/12/19 10:00 89 16 137/89 (105) 100 06/12/19 09:00 93 16 143/90 (107) 100 06/12/19 08:40 Nasal Cannula 3.0 32 06/12/19 08:40 3.0 06/12/19 08:00 30 06/12/19 08:00 103 06/12/19 08:00 Mechanical Ventilator Mechanical Ventilator 06/12/19 08:00 97.0 100 13 141/89 (106) 100 06/12/19 07:12 91 23 100 Mechanical Ventilator 30 06/12/19 07:02 94 12 100 Mechanical Ventilator 40 06/12/19 07:02 99 22 30 30 06/12/19 07:00 89 18 143/86 (105) 100 06/12/19 06:00 80 20 133/81 (98) 100 06/12/19 05:00 70 22 125/80 (95) 100 06/12/19 04:59 71 22 30 06/12/19 04:17 82 22 134/82 (99) 100 06/12/19 04:00 Mechanical Ventilator Mechanical Ventilator 06/12/19 04:00 97.7 82 22 148/100 (116) 100 06/12/19 04:00 30 06/12/19 03:35 74 06/12/19 03:00 74 22 132/85 (101) 100 06/12/19 02:46 78 22 30 06/12/19 02:00 71 22 137/78 (97) 100 06/12/19 01:23 88 23 100 Mechanical Ventilator 30 06/12/19 01:15 79 23 100 Mechanical Ventilator 30 06/12/19 01:14 79 23 30 06/12/19 01:00 71 22 127/82 (97) 100 06/12/19 00:09 73 06/12/19 00:00 Mechanical Ventilator Mechanical Ventilator 06/12/19 00:00 30 06/12/19 00:00 98.5 78 22 130/86 (101) 100 06/11/19 23:00 81 22 133/85 (101) 100 06/11/19 22:49 88 24 30 06/11/19 22:00 91 22 132/86 (101) 100 06/11/19 21:00 96 22 126/85 (99) 100 06/11/19 20:55 98 23 30 06/11/19 20:55 30 06/11/19 20:00 98.3 107 28 127/84 (98) 100 06/11/19 20:00 30 06/11/19 20:00 Mechanical Ventilator Mechanical Ventilator 06/11/19 19:47 108 06/11/19 19:35 108 30 100 Mechanical Ventilator 30 06/11/19 19:28 103 28 100 Mechanical Ventilator 30 06/11/19 19:24 103 28 30 06/11/19 19:00 101 28 117/89 (98) 100 06/11/19 18:00 106 28 142/91 (108) 100 06/11/19 17:00 103 28 139/83 (101) 99 06/11/19 16:54 105 28 30 06/11/19 16:00 Mechanical Ventilator Mechanical Ventilator 06/11/19 16:00 40 06/11/19 16:00 107 06/11/19 16:00 107 28 123/89 (100) 100 06/11/19 15:30 111 32 30 06/11/19 15:00 106 28 135/89 (104) 100 06/11/19 14:00 110 28 122/67 (85) 100 06/11/19 14:00 100 06/11/19 13:00 93 28 146/99 (115) 100 06/11/19 12:59 101 31 100 Mechanical Ventilator 30 06/11/19 12:49 99 30 100 Mechanical Ventilator 40 06/11/19 12:49 96 28 30 Height (Feet): 5 Height (Inches): 5.00 Weight (Pounds): 126 General Appearance: no acute distress HEENT: normocephalic, atraumatic, anicteric, mucous membranes moist Respiratory/Chest: crackles/rales, rhonchi - bilaterally Cardiovascular: normal rate, regular rhythm, no gallop/murmur, no JVD Abdomen: normal bowel sounds, soft, non tender, no organomegaly, non distended Genitourinary: other - no longoria Extremities: no cyanosis Skin: no rash 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 Left basilar nodular opacity probably represents a nipple shadow. The heart size is normal. Stable satisfactory position of endotracheal tube. Normal heart size Impression: Unchanged, over one day, findings as above. Microbiology Date/Time Source Procedure Growth Status 06/10/19 09:25 Blood Blood Culture - Preliminary NO GROWTH AFTER 24 HOURS Resulted 06/10/19 09:10 Blood Blood Culture - Preliminary NO GROWTH AFTER 24 HOURS Resulted 06/10/19 14:50 Sputum Induced Gram Stain - Final Resulted 06/10/19 14:50 Sputum Induced Sputum Culture - Preliminary NORMAL UPPER RESPIRATORY ROMEO AT 24 ... Resulted Laboratory Tests Test 06/11/19 19:35 06/12/19 03:30 Arterial Blood pH 7.554 (7.350-7.450) Arterial Blood Partial Pressure CO2 21.5 mmHg (35.0-45.0) *L Arterial Blood Partial Pressure O2 139.4 mmHg (75.0-100.0) H Arterial Blood HCO3 18.6 mmol/L (22.0-26.0) L Arterial Blood Oxygen Saturation 98.5 % (95-100) Arterial Blood Base Excess -1.9 (-2-2) Bartolo Test Positive White Blood Count 11.5 K/UL (4.8-10.8) H Red Blood Count 4.03 M/UL (4.70-6.10) L Hemoglobin 11.8 G/DL (14.2-18.0) L Hematocrit 34.8 % (42.0-52.0) L Mean Corpuscular Volume 86 FL (80-99) Mean Corpuscular Hemoglobin 29.2 PG (27.0-31.0) Mean Corpuscular Hemoglobin Concent 33.8 G/DL (32.0-36.0) Red Cell Distribution Width 12.4 % (11.6-14.8) Platelet Count 140 K/UL (150-450) L Mean Platelet Volume 8.6 FL (6.5-10.1) Neutrophils (%) (Auto) % (45.0-75.0) Lymphocytes (%) (Auto) % (20.0-45.0) Monocytes (%) (Auto) % (1.0-10.0) Eosinophils (%) (Auto) % (0.0-3.0) Basophils (%) (Auto) % (0.0-2.0) Differential Total Cells Counted 100 Neutrophils % (Manual) 96 % (45-75) H Lymphocytes % (Manual) 2 % (20-45) L Monocytes % (Manual) 2 % (1-10) Eosinophils % (Manual) 0 % (0-3) Basophils % (Manual) 0 % (0-2) Band Neutrophils 0 % (0-8) Platelet Estimate Decreased L Platelet Morphology Normal Red Blood Cell Morphology Normal Sodium Level 139 MMOL/L (136-145) Potassium Level 3.4 MMOL/L (3.5-5.1) L Chloride Level 109 MMOL/L (98-107) H Carbon Dioxide Level 22 MMOL/L (21-32) Anion Gap 8 mmol/L (5-15) Blood Urea Nitrogen 17 mg/dL (7-18) Creatinine 1.1 MG/DL (0.55-1.30) Estimat Glomerular Filtration Rate > 60 mL/min (>60) Glucose Level 149 MG/DL (74-106) H Calcium Level 8.5 MG/DL (8.5-10.1) Phosphorus Level 2.9 MG/DL (2.5-4.9) Magnesium Level 2.2 MG/DL (1.8-2.4) Total Bilirubin 0.3 MG/DL (0.2-1.0) Aspartate Amino Transf (AST/SGOT) 28 U/L (15-37) Alanine Aminotransferase (ALT/SGPT) 21 U/L (12-78) Alkaline Phosphatase 73 U/L (46-116) Total Protein 6.6 G/DL (6.4-8.2) Albumin 2.7 G/DL (3.4-5.0) L Globulin 3.9 g/dL Albumin/Globulin Ratio 0.7 (1.0-2.7) L Vancomycin Level Trough 9.5 ug/mL (5.0-12.0) Current Medications Medications (Trade) Dose Ordered Sig/Lara Route PRN Reason Start Time Stop Time Status Last Admin Dose Admin Acetaminophen (Tylenol) 650 mg Q4H PRN ORAL Mild Pain (Pain Scale 1-3) 06/10/19 13:15 07/10/19 13:14 Acetaminophen (Tylenol) 650 mg Q4H PRN ORAL fever 06/10/19 13:15 07/10/19 13:14 Acetaminophen (Tylenol) 650 mg Q4H PRN RECTAL Mild Pain (Pain Scale 1-3) 06/10/19 13:15 07/10/19 13:14 Acetaminophen (Tylenol) 650 mg Q4H PRN RECTAL fever 06/10/19 13:15 07/10/19 13:14 Al Hydroxide/Mg Hydroxide (Mylanta II) 30 ml Q6H PRN ORAL dyspepsia 06/10/19 13:15 07/10/19 13:14 Albuterol/ Ipratropium (Albuterol/ Ipratropium) 3 ml Q6HRT HHN 06/10/19 19:00 06/15/19 18:59 06/12/19 07:07 Bisacodyl (Dulcolax) 10 mg DAILYPRN PRN RECTAL Constipation 06/10/19 13:15 07/10/19 13:14 Dextrose (Dextrose 50%) 25 ml Q30M PRN IV Hypoglycemia 06/10/19 13:15 07/10/19 13:14 Dextrose (Dextrose 50%) 50 ml Q30M PRN IV Hypoglycemia 06/10/19 13:15 07/10/19 13:14 Diphenhydramine HCl (Benadryl) 25 mg Q6H PRN ORAL Itching/Pruritis 06/10/19 13:15 07/10/19 13:14 Docusate Sodium (Colace) 100 mg EVERY 12 HOURS ORAL 06/10/19 21:00 07/10/19 20:59 06/12/19 08:49 Heparin Sodium (Porcine) (Heparin 5000 units/ml) 5,000 units EVERY 12 HOURS SUBQ 06/10/19 15:51 07/10/19 15:50 06/12/19 08:51 Levetiracetam 100 ml @ 400 mls/hr Q12HR@0500,1700 IVPB 06/10/19 17:00 07/10/19 16:59 06/12/19 04:40 Levofloxacin 150 ml @ 100 mls/hr Q24H IVPB 06/10/19 18:00 06/17/19 17:59 06/11/19 17:56 Lorazepam (Ativan 2mg/ml 1ml) 0.5 mg Q4H PRN IV For Anxiety 06/10/19 13:15 06/17/19 13:14 06/10/19 22:09 Magnesium Hydroxide (Mom) 30 ml HSPRN PRN ORAL Constipation 06/10/19 13:15 07/10/19 13:14 Methylprednisolone Sodium Succinate (Solu-MEDROL) 30 mg EVERY 12 HOURS IVP 06/12/19 09:00 07/10/19 20:59 06/12/19 08:48 Metronidazole 100 ml @ 100 mls/hr Q8HR IVPB 06/10/19 22:00 06/17/19 21:59 06/12/19 05:38 Morphine Sulfate (Morphine Sulfate) 1 mg Q4H PRN IVP mild pain 06/10/19 13:15 06/17/19 13:14 Morphine Sulfate (Morphine Sulfate) 2 mg Q4H PRN IVP Moderate Pain (Pain Scale 4-6) 06/10/19 13:15 06/17/19 13:14 06/11/19 15:21 Morphine Sulfate (Morphine Sulfate) 4 mg Q4H PRN IVP Severe Pain (Pain Scale 7-10) 06/10/19 13:15 06/17/19 13:14 Nitroglycerin (Ntg) 0.4 mg Q5M PRN SL Prn Chest Pain 06/10/19 13:15 07/10/19 13:14 Ondansetron HCl (Zofran) 4 mg Q6H PRN IVP Nausea & Vomiting 06/10/19 13:15 07/10/19 13:14 06/12/19 04:11 Pantoprazole (Protonix) 40 mg DAILY IVP 06/11/19 10:00 07/11/19 09:59 06/12/19 08:47 Polyethylene Glycol (Miralax) 17 gm DAILYPRN PRN ORAL Constipation 06/10/19 13:15 07/10/19 13:14 Potassium Chloride 100 ml @ 100 mls/hr Q1HR IVPB 06/12/19 09:00 06/12/19 12:59 06/12/19 11:44 Prochlorperazine (Compazine) 10 mg Q6H PRN IVP Nausea & Vomiting 06/10/19 13:15 07/10/19 13:14 Sodium Chloride 1,000 ml @ 100 mls/hr Q10H IV 06/10/19 15:15 07/10/19 15:14 06/11/19 21:46 Vancomycin HCl (Vanco rx to dose) 1 ea DAILY PRN MISC Per rx protocol 06/10/19 16:30 07/10/19 16:29 Vancomycin HCl 1 gm/Sodium Chloride 275 ml @ 183.708 mls/hr Q12H IVPB 06/12/19 16:00 06/17/19 15:59 Zolpidem Tartrate (Ambien) 5 mg HSPRN PRN ORAL Insomnia 06/10/19 13:15 06/17/19 13:14 Reji Maier MD Jun 12, 2019 12:38
--- NOTE | 2019-06-12 12:55 | General Progress Note ---
Assessment/Plan Assessment/Plan: 59 yo M PMH of pericarditis?, COPD, seizures was intubated in ED for acute hypoxia # Acute Hypoxic and Hypercapnic Respiratory failure s/p Intubation 06/10 on admission, status post extubation 06/12/2019 # COPD exacerbation - ID consult And antibiotics per ID: DC Vanco, continue Rocephin and azithromycin - f/u cultures and repeat cxr in am reviewed - echo within normal limits # Lactic acidosis worsening, ddx: seizures, sepsis, s.e. of breathing treatment, ; resolved - continue to monitor #Encephalopathy secondary to multifactorial including metabolic history -Continue current management # Seizure d/o - EEG, follow-up results: Reviewed no ictal changes - cont keppra - neuro consult appreciate recs - ct head negative # h/o Pericarditic - f/u echo as above, reviewed # Hyponatremia, resolved - IV - ctm # Hypomagnesemia - replace - ctm, replace FULL CODE 45 minutes of critical care time spent evaluating patient's vitals, exam, labs, imaging, interpretation of results, coordination of care among many specialists. Subjective Allergies: Coded Allergies: PENICILLINS (Verified Allergy, Unknown, 07/04/16) Subjective Patient doing well more alert. He is able to follow commands and communicate by writing. Plan for possible extubation today. No seizing. Objective Last 24 Hour Vital Signs Date Time Temp Pulse Resp B/P (MAP) Pulse Ox O2 Delivery O2 Flow Rate FiO2 06/12/19 11:00 69 15 149/82 (104) 100 06/12/19 10:00 89 16 137/89 (105) 100 06/12/19 09:00 93 16 143/90 (107) 100 06/12/19 08:40 Nasal Cannula 3.0 32 06/12/19 08:40 3.0 06/12/19 08:00 30 06/12/19 08:00 103 06/12/19 08:00 Mechanical Ventilator Mechanical Ventilator 06/12/19 08:00 97.0 100 13 141/89 (106) 100 06/12/19 07:12 91 23 100 Mechanical Ventilator 30 06/12/19 07:02 94 12 100 Mechanical Ventilator 40 06/12/19 07:02 99 22 30 30 06/12/19 07:00 89 18 143/86 (105) 100 06/12/19 06:00 80 20 133/81 (98) 100 06/12/19 05:00 70 22 125/80 (95) 100 06/12/19 04:59 71 22 30 06/12/19 04:17 82 22 134/82 (99) 100 06/12/19 04:00 Mechanical Ventilator Mechanical Ventilator 06/12/19 04:00 97.7 82 22 148/100 (116) 100 06/12/19 04:00 30 06/12/19 03:35 74 06/12/19 03:00 74 22 132/85 (101) 100 06/12/19 02:46 78 22 30 06/12/19 02:00 71 22 137/78 (97) 100 06/12/19 01:23 88 23 100 Mechanical Ventilator 30 06/12/19 01:15 79 23 100 Mechanical Ventilator 30 06/12/19 01:14 79 23 30 06/12/19 01:00 71 22 127/82 (97) 100 06/12/19 00:09 73 06/12/19 00:00 Mechanical Ventilator Mechanical Ventilator 06/12/19 00:00 30 06/12/19 00:00 98.5 78 22 130/86 (101) 100 06/11/19 23:00 81 22 133/85 (101) 100 06/11/19 22:49 88 24 30 06/11/19 22:00 91 22 132/86 (101) 100 06/11/19 21:00 96 22 126/85 (99) 100 06/11/19 20:55 98 23 30 06/11/19 20:55 30 06/11/19 20:00 98.3 107 28 127/84 (98) 100 06/11/19 20:00 30 06/11/19 20:00 Mechanical Ventilator Mechanical Ventilator 06/11/19 19:47 108 06/11/19 19:35 108 30 100 Mechanical Ventilator 30 06/11/19 19:28 103 28 100 Mechanical Ventilator 30 06/11/19 19:24 103 28 30 06/11/19 19:00 101 28 117/89 (98) 100 06/11/19 18:00 106 28 142/91 (108) 100 06/11/19 17:00 103 28 139/83 (101) 99 06/11/19 16:54 105 28 30 06/11/19 16:00 Mechanical Ventilator Mechanical Ventilator 06/11/19 16:00 40 06/11/19 16:00 107 06/11/19 16:00 107 28 123/89 (100) 100 06/11/19 15:30 111 32 30 06/11/19 15:00 106 28 135/89 (104) 100 06/11/19 14:00 110 28 122/67 (85) 100 06/11/19 14:00 100 06/11/19 13:00 93 28 146/99 (115) 100 06/11/19 12:59 101 31 100 Mechanical Ventilator 30 Intake and Output 06/11/19 06/12/19 18:59 06:59 Intake Total 2608.333 ml 2231.667 ml Output Total 1150 ml 1240 ml Balance 1458.333 ml 991.667 ml Intake Free Water 350 ml IV Total 2608.333 ml 1591.667 ml Tube Feeding 240 ml Other 50 ml Output Urine Total 1150 ml 1240 ml Laboratory Tests 06/11/19 19:35: Arterial Blood pH 7.554*H, Arterial Blood Partial Pressure CO2 21.5*L, Arterial Blood Partial Pressure O2 139.4H, Arterial Blood HCO3 18.6L, Arterial Blood Oxygen Saturation 98.5, Arterial Blood Base Excess -1.9, Bartolo Test Positive 06/12/19 03:30: White Blood Count 11.5H, Red Blood Count 4.03L, Hemoglobin 11.8L, Hematocrit 34.8L, Mean Corpuscular Volume 86, Mean Corpuscular Hemoglobin 29.2, Mean Corpuscular Hemoglobin Concent 33.8, Red Cell Distribution Width 12.4, Platelet Count 140L, Mean Platelet Volume 8.6, Neutrophils (%) (Auto) , Lymphocytes (%) ( Auto) , Monocytes (%) (Auto) , Eosinophils (%) (Auto) , Basophils (%) (Auto) , Differential Total Cells Counted 100, Neutrophils % (Manual) 96H, Lymphocytes % (Manual) 2L, Monocytes % (Manual) 2, Eosinophils % (Manual) 0, Basophils % ( Manual) 0, Band Neutrophils 0, Platelet Estimate DecreasedL, Platelet Morphology Normal, Red Blood Cell Morphology Normal, Sodium Level 139, Potassium Level 3.4L, Chloride Level 109H, Carbon Dioxide Level 22, Anion Gap 8 , Blood Urea Nitrogen 17, Creatinine 1.1, Estimat Glomerular Filtration Rate > 60, Glucose Level 149H, Calcium Level 8.5, Phosphorus Level 2.9, Magnesium Level 2.2, Total Bilirubin 0.3, Aspartate Amino Transf (AST/SGOT) 28, Alanine Aminotransferase (ALT/SGPT) 21, Alkaline Phosphatase 73, Total Protein 6.6, Albumin 2.7L, Globulin 3.9, Albumin/Globulin Ratio 0.7L, Vancomycin Level Trough 9.5 Height (Feet): 5 Height (Inches): 5.00 Weight (Pounds): 126 Objective GENERAL: Intubated, no acute distress, sitting comfortably, alert HEENT: NCAT, non-icteric eyes, pupils PERRLA Neck: No cervical lymphadenopathy, trachea midline CV: Regular rate and rhythm, no murmurs rubs or gallops RESP: Clear to auscultation bilaterally, no wheezes/rhonchi/crackles EXT: Normal muscle tone NEURO: No obvious deficits, Astrid Caputo DO Jun 12, 2019 12:55
--- NOTE | 2019-06-12 13:00 | NUR ---
NURSE NOTES: Speech Therapist Dominique at bedside,Swallow eval done,pt passed ,pt can be started on Reg soft mech diet .
--- NOTE | 2019-06-12 14:59 | NUR ---
SPEECH PATHOLOGY: BEDSIDE SWALLOW EVALUATION COMPLETED AFTER CHART REVIEW AND INTERVIEW WITH YAKELIN HALL. FAN MAYA: FULL TREATMENT DYSPHAGIA RISK FACTORS FOR THIS 59 Y.O. MALE: HX OF SEIZURE DISORDER, HYPOXIA, SOB,HX OF CVA INITIAL IMPRESSIONS MILD OROPHARYNGEAL DYSPHAGIA W/SLOWED MASTICATION TIME, MILDLY DECREASED ORAL PREP/ORAL TRANSIT TIME. DURING P.O. TRIALS WITH THIN AND SOFT SOLIDS, PATIENT DID NOT DEMONSTRATE SHORTNESS OF BREATH. NO OVERT S/S OF ASPIRATION... RECOMMENDATIONS/GOALS: 1. PATIENT WILL TOLERATE P.O. WITH LEAST RESTRICTIVE DIET IN SAFE/SUFFICIENT AMOUNTS TO SUPPORT NUTRITION/HYDRATION NEEDS 2. VIDEO SWALLOW STUDY TO DETERMINE EFFICACY OF OROPHARYNGEAL PHASE OF SWALLOW 3. SAFE FOR RESUMPTION OF P.O. WITH SOFT/EASY CHEW, THIN LIQUIDS CAUTION PATIENT IF SHORT OF BREATH DURING MEAL, STOP/RELAX, THEN RESUME MEAL. 4. PILLS TOLERATED 5. ST FOLLOW UP/ONGOING ASSESSMENT.
--- NOTE | 2019-06-12 15:00 | NUR ---
NURSE NOTES: Seen by Dr Cerna with orders noted,
--- NOTE | 2019-06-12 15:07 | NUR ---
CASE MANAGEMENT: REVIEW 06/12/2019 SI:COPD EXACERBATION. T 97 HR 100 RR 13 B/P 141/89 SATS 100% ON MECH VENT FIO2 30 WBC 11.5 K 3.4 CL 109 GLU 149 IS: IVF @ 100 mL/HR SOLU MEDROL IV Q12H PROTONIX IV QD K DUR PO X1 KEPPRA IV Q12H LEVOFLOXACIN IV Q24H FLAGYL IV Q8H ICU DCP: PATIENT TO BE DISCHARGE TO HOME ONCE MEDICALLY CLEARED. PLAN OF CARE: VENT SUPPORT >>ETT 2D ECHO EF 60%
--- NOTE | 2019-06-12 15:10 | NUR ---
INSURANCE REVIEW FAXED TO [facility]: [place] P- [phone] F- [phone]
--- NOTE | 2019-06-12 15:31 | Neurology Progress Note ---
Interim History Interim History Interim History Mr. Singh feels very well. He was recently extubated. He is able to breathe well. He is enjoying a sandwich. He is still being watched in the ICU. He has been seizure-free. He tells me he had his last seizure approximately a year and a half ago. He tells me that his seizures usually start right upper extremity and then spreads. He denies any new neurological problems. He continues to be weak on the right side but he feels that the weakness has improved today. Review of Systems Neuro Review of Systems Benign. Objective Physical Exam Last Vital Signs Date Time Temp Pulse Resp B/P (MAP) Pulse Ox O2 Delivery O2 Flow Rate FiO2 06/12/19 12:44 88 20 100 Mechanical Ventilator 30 06/12/19 11:00 149/82 (104) 06/12/19 08:40 3.0 06/12/19 08:00 97.0 Laboratory Tests Test 06/11/19 19:35 06/12/19 03:30 Arterial Blood pH 7.554 (7.350-7.450) Arterial Blood Partial Pressure CO2 21.5 mmHg (35.0-45.0) *L Arterial Blood Partial Pressure O2 139.4 mmHg (75.0-100.0) H Arterial Blood HCO3 18.6 mmol/L (22.0-26.0) L Arterial Blood Oxygen Saturation 98.5 % (95-100) Arterial Blood Base Excess -1.9 (-2-2) Bartolo Test Positive White Blood Count 11.5 K/UL (4.8-10.8) H Red Blood Count 4.03 M/UL (4.70-6.10) L Hemoglobin 11.8 G/DL (14.2-18.0) L Hematocrit 34.8 % (42.0-52.0) L Mean Corpuscular Volume 86 FL (80-99) Mean Corpuscular Hemoglobin 29.2 PG (27.0-31.0) Mean Corpuscular Hemoglobin Concent 33.8 G/DL (32.0-36.0) Red Cell Distribution Width 12.4 % (11.6-14.8) Platelet Count 140 K/UL (150-450) L Mean Platelet Volume 8.6 FL (6.5-10.1) Neutrophils (%) (Auto) % (45.0-75.0) Lymphocytes (%) (Auto) % (20.0-45.0) Monocytes (%) (Auto) % (1.0-10.0) Eosinophils (%) (Auto) % (0.0-3.0) Basophils (%) (Auto) % (0.0-2.0) Differential Total Cells Counted 100 Neutrophils % (Manual) 96 % (45-75) H Lymphocytes % (Manual) 2 % (20-45) L Monocytes % (Manual) 2 % (1-10) Eosinophils % (Manual) 0 % (0-3) Basophils % (Manual) 0 % (0-2) Band Neutrophils 0 % (0-8) Platelet Estimate Decreased L Platelet Morphology Normal Red Blood Cell Morphology Normal Sodium Level 139 MMOL/L (136-145) Potassium Level 3.4 MMOL/L (3.5-5.1) L Chloride Level 109 MMOL/L (98-107) H Carbon Dioxide Level 22 MMOL/L (21-32) Anion Gap 8 mmol/L (5-15) Blood Urea Nitrogen 17 mg/dL (7-18) Creatinine 1.1 MG/DL (0.55-1.30) Estimat Glomerular Filtration Rate > 60 mL/min (>60) Glucose Level 149 MG/DL (74-106) H Calcium Level 8.5 MG/DL (8.5-10.1) Phosphorus Level 2.9 MG/DL (2.5-4.9) Magnesium Level 2.2 MG/DL (1.8-2.4) Total Bilirubin 0.3 MG/DL (0.2-1.0) Aspartate Amino Transf (AST/SGOT) 28 U/L (15-37) Alanine Aminotransferase (ALT/SGPT) 21 U/L (12-78) Alkaline Phosphatase 73 U/L (46-116) Total Protein 6.6 G/DL (6.4-8.2) Albumin 2.7 G/DL (3.4-5.0) L Globulin 3.9 g/dL Albumin/Globulin Ratio 0.7 (1.0-2.7) L Vancomycin Level Trough 9.5 ug/mL (5.0-12.0) Neurologic Exam Objective PHYSICAL EXAMINATION: GENERAL: He is a well-developed relatively well-nourished black gentleman, lying in an ICU bed, in no acute distress. HEAD: Normocephalic and atraumatic. EENT: Examination benign. NECK: No neck rigidity was observed. NEUROLOGICAL EXAMINATION: MENTAL STATUS EXAMINATION: He was awake and alert. He was oriented to self, 2019 and hospital only. He was unable to give me the name of the hospital and had no idea what the date or month was. He was able to recall 3/3 words immediately, but could only remember 1/3 in 1 minute and 3 minutes. He knew that Laila is President, but could not remember Presidents prior to that. His mathematical skills were impaired. His visual-spatial function was also impaired. SPEECH: He had no dysarthria. LANGUAGE: He had an anomia for low and mid frequency words. CRANIAL NERVE EXAMINATION: II: The visual velasquez were intact to confrontation testing. III, IV & : The external ocular movements were full and the pupils 3 mm in diameter, equal, round, regular, and reactive to light. V: He had normal facial sensations and the temporales, masseters, and pterygoids functioned normally. VII: He had a mild right seventh central facial paresis. VIII: He was able to hear and had no nystagmus. IX: The palate moves symmetrically on phonation. X: He had no hoarseness of voice. XI: The sternocleidomastoids and trapezii did function. XII: Could not be tested adequately. MOTOR SYSTEM: The tone was minimally increased with a mild degree of spasticity on the right side. Examination of muscle mass revealed no focal wasting. Examination of power revealed G 5/5 power except for G 4+/5 power in the right finger extensors and iliopsoas. SENSORY EXAMINATION: He had intact sensations to pinprick and light touch. He was unable to cooperate for other sensory modalities. REFLEXES: 2+ on the right and 1+ on the left in the biceps, triceps, brachioradialis, and knees, 0 at both ankles. The plantar responses were flexor bilaterally. COORDINATION: He performed well on [id number] testing. STANCE & GAIT: Could not be tested. Impression/Recommendations Diagnostic Impression 1. Mr. Kevin Singh is a 59-year-old, right-handed, black gentleman, with a past history of COPD, hypertension, diabetes mellitus, dyslipidemia, cerebrovascular disease with prior stroke associated with right-sided weakness, and an undefined seizure disorder for which he takes Keppra 500 mg twice a day, with good seizure control. He was hospitalized in the early hours of 2018 after he developed increasing shortness of breath and he became significantly more short of breath and had to be intubated and artificially ventilated. 2. He feels very well. He was recently extubated. He is able to breathe well. He is enjoying a sandwich. He is still being watched in the ICU. He has been seizure-free. He tells me he had his last seizure approximately a year and a half ago. He tells me that his seizures usually start right upper extremity and then spreads. He denies any new neurological problems. He continues to be weak on the right side but he feels that the weakness has improved today. 3. On neurological examination, at this time, he is oriented to self, 2019 and hospital only. He has significant problems with recent and remote memory, visual-spatial function, higher cognitive function and language. 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 He does have a right seventh central facial paresis, a right hemiparesis involving the finger extensors and iliopsoas, and brisker deep tendon reflexes on the right side compared to the left. 4. The EEG performed on 06/10/2019 revealed an encephalopathy of a moderate degree with a definite toxic component as evidenced by generalized spindle-like activity but no interictal or ictal discharges. 5. The patient's history and neurological examination are most consistent with an acute exacerbation of COPD with respiratory failure. 6. He does have a prior history of stroke with right hemiparesis. 7. He also has a prior history of a post stroke seizure disorder tells me that his last seizure was approximately a year and a half ago. From what he describes he has focal seizures with secondary generalization. 8. His present altered mental state is related to an encephalopathy due to respiratory failure, the underlying structural brain disease related to the stroke, and the mind altering drugs that he has been getting. Recommendations 1. Continue present management. 2. Continue Keppra 500 mg intravenously every 12 hours. When the patient is able to take oral medicines, the dose of Keppra can be changed to an identical dose given orally. 3. Treatment of respiratory failure as per Dr. Chino. 4. Observe closely. Royer Corona M.D., M.S.P.H. Royer Corona MD Jun 12, 2019 15:31
[2019-06-12] MEDS ORDERED: Vancomycin 1 GM in NS 275 ML IVPB SCH ×2 (16:00→18:00)
--- NOTE | 2019-06-12 17:00 | NUR ---
NURSE NOTES: Pt continue to be stable,very talkative,no resp distress presented.
--- NOTE | 2019-06-12 19:22 | NUR ---
HAND-OFF: Report given to Maurice Ulrich RN.
--- NOTE | 2019-06-12 19:30 | NUR ---
NURSE NOTES: Recvd.quiet in bed,AAO S/P extubated today on 2L/NC inh.Resp.unlabored.P.Ox-100%.Lungs diminished BS at bases.Enc.Deep breathing/coughing ex.HOB >35' See V/S.Scope SR.denies CP.Observed for S/Sx of Resp.distress.Ate 100% of Dinner.Voided Freely.
--- NOTE | 2019-06-12 22:30 | NUR ---
NURSE NOTES: HS Care provided.Due meds admin.Cont.on IV Hydration.Diuresis well.None observed SZ.Act.Precaution maintained.
[2019-06-13] VITALS (16 sets, daily range): BP systolic 90–151; BP diastolic 59–95
--- NOTE | 2019-06-13 00:30 | NUR ---
NURSE NOTES: See V/S.Scope rhythm same.Cont.to enc.deep breathing/coughing ex.P.Ox.-100% on 2L/NC.No distress.
[2019-06-13] MEDS: Albuterol/Ipratropium 3ml neb HHN SCH ×4 (00:34→19:53)
--- NOTE | 2019-06-13 02:00 | NUR ---
NURSE NOTES: Sounds asleep.Resp. unlabored.P.Ox.-99% on 2L/NC.IV Thera.remain in progress.No Distress Cont.Plan of care.
[2019-06-13] MEDS: levETIRAcetam 500mg/NS100ml 100 ML IVPB SCH ×2 (04:42→17:01)
[2019-06-13 07:07] LABS: ANION GAP 8 mmol/L (5-15); BLOOD UREA NITROGEN 15 mg/dL (7-18); CALCIUM 8.6 MG/DL (8.5-10.1); CARBON DIOXIDE 24 MMOL/L (21-32); CHLORIDE 108 MMOL/L (98-107); CREATININE 1.1 MG/DL (0.55-1.30); SODIUM 140 MMOL/L (136-145)
--- NOTE | 2019-06-13 07:07 | NUR ---
NURSE NOTES: Received patient from YAKELIN Harrell. Patient HR 60, BP 133/77, SpO2 100% on 2L NC with no sign of acute distress, and RR 15. Patient denies pain or acute distress at this time. Patient alert and oriented to time, place, purpose and person. Patient states that he is hungry. Will bring his tray when it arrives. Patient is on regular diet. Patient on respiratory treatment at this time. Will follow up when treatment is completed. Patient was extubated yesterday. patient was intubated since admission on 06/10. Patient showing no sign of stridor or respiratory distress at this time. Patient showing sinus rhythm on the phototypesetting equipment monitor at this time. Patient is diabetic but is not on receiving insulin. Patient's serum glucose was 149. Patient has right forearm 20G and right forearm 22G peripheral IVs. Patient has normal saline 0.9% running at 100mL/hr at this time. Labs pending. Will follow up with lab. Patient bed in low position with bed alarm on and call light in reach at this time. Tooth brush and toothpaste given at this time. Patient repositioned himself in bed. Addendum: 06/13/19 at 0724 by Fide Huertas RN Patient voids in urinal. Addendum: 06/13/19 at 0757 by Fide Huertas RN Lung sounds clear bilaterally. Lung sounds diminished in the bases. Patient holding the right hand up and using his left hand. Patient states that he has begun using his left hand more since his right hand is weaker from the stroke he had previously. Patient states that he has no weakness in his right leg. Patient has 5/5 strength in his feet and hands. Fine movement of the right hand is limited. No limitation in movement noted in the legs and left hand. Patient may require physical therapy prior to discharge. Will ask primary MD for physical therapy evaluation and consult.
[2019-06-13 07:08] LABS: HEMATOCRIT 34.9 % (42.0-52.0); HEMOGLOBIN 11.7 G/DL (14.2-18.0); MEAN CORPUSCULAR VOLUME 87 FL (80-99); PLATELET COUNT 153 K/UL (150-450); RED CELL DISTRIBUTION WIDTH 12.6 % (11.6-14.8); WHITE BLOOD COUNT 10.4 K/UL (4.8-10.8)
--- NOTE | 2019-06-13 07:23 | NUR ---
HAND-OFF: Report given to YAKELIN TURNER.
[2019-06-13] MEDS: Solu-MEDROL 40mg Inj IVP SCH ×2 (08:39→21:52)
[2019-06-13] MEDS: Pantoprazole Inj IVP SCH (08:39)
[2019-06-13] MEDS: Heparin 5000 units/ml inj SUBQ SCH ×2 (08:41→21:53)
[2019-06-13] MEDS: Docusate 100mg cap ORAL SCH ×2 (08:41→21:51)
--- NOTE | 2019-06-13 09:16 | NUR ---
RADIOLOGY DEPT., CHEST X-RAY DONE.-P.DYE
--- NOTE | 2019-06-13 09:18 | Diagnostic Imaging Report ---
EXAM: XR Chest, 1 View CLINICAL HISTORY: INFECT TECHNIQUE: Frontal view of the chest. COMPARISON: Chest x-ray 06/11/19 754 FINDINGS: Lungs: Interval development of left lung base retrocardiac rounded opacity may be a consolidation. Mild right lung base atelectasis. Pleural space: Mild blunting of the right costophrenic angle. No pneumothorax. Heart: Unremarkable. No cardiomegaly. Mediastinum: Unremarkable. Bones/joints: Degenerative changes of the spine. IMPRESSION: 1. Interval development of left lung base retrocardiac rounded opacity may be a consolidation. 2. Query tiny right pleural effusion.
--- NOTE | 2019-06-13 10:00 | NUR ---
NURSE NOTES: Patient blood pressure 134/80, HR 87, temp 98.3, RR 18, and SpO2 100%. Patient vital signs stable at this time. Patient has an order to transfer to telemetry at this time. Will follow up with telemetry to get a bed. Patient had a small loose bowel movement. C. diff culture not collected because patient has been on stool softener. Stool softener held this morning. Patient brushed his teeth, turned, and was cleaned up at this time. Patient bed in low position with bed alarm on and call light and urinal within reach. Patient denies pain or acute distress. Will continue to monitor and transfer when possible.
--- NOTE | 2019-06-13 11:44 | NUR ---
TRANSFER TO FLOOR: Patient transferred to Telemetry, per Dr Caputo. Report given to YAKELIN Lopez. Belongings and medications given to YAKELIN Lopez. Family and or S/O informed of transfer.
--- NOTE | 2019-06-13 11:45 | NUR ---
NURSE NOTES: Report received from YAKELIN Elizalde. Pt shows no signs of distress, A+Ox4, denies pain/SOB. Respirations are even and unlabored on 2 L NC. IV sites are patent and intact with one running fluids @ prescribed rate. Bed is at lowest position, brakes engaged, siderails x2 bed alarm on, and call light within reach. VSS. Addendum: 06/13/19 at 1158 by Fide Huertas RN Cici Singh notified of transfer to telemetry bed 212-2.
[2019-06-13] MEDS ORDERED: Nitroglycerin Subl 0.4mg tab SL PRN (11:50)
[2019-06-13] MEDS ORDERED: LORazepam Inj 2mg/ml 1ml IV PRN (12:00)
[2019-06-13] MEDS ORDERED: Miralax 17gm pkt ORAL PRN (12:00)
[2019-06-13] MEDS ORDERED: Mylanta II UD 30ml ORAL PRN (12:00)
[2019-06-13] MEDS ORDERED: Morphine Sulfate 4mg/ml Inj (IV USE ONLY) IVP PRN (12:00)
[2019-06-13] MEDS ORDERED: Morphine Sulfate 2mg/ml Inj(IV/IM USE ONLY) IVP PRN ×2 (12:00)
--- NOTE | 2019-06-13 12:37 | General Progress Note ---
Assessment/Plan Assessment/Plan: 59 yo M PMH of pericarditis?, COPD, seizures was intubated in ED for acute hypoxia # Acute Hypoxic and Hypercapnic Respiratory failure s/p Intubation 06/10 on admission, status post extubation 06/12/2019 # COPD exacerbation - ID consult And antibiotics per ID: DC Vanco, continue Levaquin and Flagyl - f/u cultures and repeat cxr in am reviewed - echo within normal limits -Continue steroids, wean per pulmonary recommendations # Lactic acidosis worsening, ddx: seizures, sepsis, s.e. of breathing treatment, ; resolved - continue to monitor #Encephalopathy secondary to multifactorial including metabolic + seizure history, resolved -Continue current management # Seizure d/o - EEG, follow-up results: Reviewed no ictal changes - cont keppra - neuro consult appreciate recs - ct head negative # h/o Pericarditic - f/u echo as above, reviewed # Hyponatremia, resolved - IV - ctm # Hypomagnesemia - replace - ctm, replace FULL CODE 45 minutes of critical care time spent evaluating patient's vitals, exam, labs, imaging, interpretation of results, coordination of care among many specialists. Subjective Date patient seen: Jun 13, 2019 Allergies: Coded Allergies: PENICILLINS (Verified Allergy, Unknown, 07/04/16) All Systems: reviewed and negative except above Subjective Patient extubated 06/12/2019. Patient talking full sentences comfortable has had breakfast this morning without any signs of aspiration. Continues to have wheezing on exam. O2 sat above 93% on room air. Objective Last 24 Hour Vital Signs Date Time Temp Pulse Resp B/P (MAP) Pulse Ox O2 Delivery O2 Flow Rate FiO2 06/13/19 12:00 98.3 84 19 150/77 (101) 98 84 06/13/19 11:00 70 19 132/76 (94) 100 70 06/13/19 10:00 72 17 134/80 (98) 99 72 06/13/19 09:00 98.3 92 21 115/59 (77) 100 92 06/13/19 08:00 94 18 117/95 (102) 100 06/13/19 08:00 Nasal Cannula 2.0 06/13/19 08:00 98 06/13/19 07:00 83 20 100 Nasal Cannula 2.0 28 76 20 100 06/13/19 07:00 94 19 90/70 (77) 100 06/13/19 07:00 99 Nasal Cannula 2.0 28 06/13/19 06:00 72 18 133/77 (95) 100 06/13/19 05:00 65 18 133/76 (95) 100 06/13/19 04:00 88 06/13/19 04:00 97.7 88 20 140/73 (95) 99 06/13/19 04:00 Nasal Cannula 3.0 Nasal Cannula 3.0 Nasal Cannula 3.0 06/13/19 03:00 71 18 123/77 (92) 100 06/13/19 02:00 81 22 136/71 (92) 100 06/13/19 01:00 85 26 130/69 (89) 100 06/13/19 00:34 81 21 100 Nasal Cannula 2.0 28 80 22 100 06/13/19 00:00 98.2 71 26 138/78 (98) 100 06/13/19 00:00 Nasal Cannula 3.0 Nasal Cannula 3.0 Nasal Cannula 3.0 06/13/19 00:00 71 06/12/19 23:00 77 22 125/69 (87) 100 06/12/19 22:00 72 22 127/73 (91) 100 06/12/19 21:00 79 18 138/76 (96) 99 06/12/19 20:00 86 06/12/19 20:00 Nasal Cannula 3.0 Nasal Cannula 3.0 Nasal Cannula 3.0 06/12/19 20:00 97.6 86 18 110/87 (95) 100 06/12/19 19:36 80 20 100 Nasal Cannula 2.0 28 75 19 100 06/12/19 19:35 99 Nasal Cannula 2.0 28 06/12/19 19:34 76 19 100 Nasal Cannula 2.0 28 06/12/19 19:00 79 19 126/53 (77) 100 06/12/19 18:00 87 22 120/79 (93) 100 06/12/19 17:00 82 14 104/83 (90) 100 06/12/19 16:00 90 06/12/19 16:00 Nasal Cannula 3.0 Nasal Cannula 3.0 Nasal Cannula 3.0 06/12/19 16:00 97.3 89 18 140/91 (107) 100 06/12/19 15:00 87 17 135/91 (106) 99 06/12/19 14:00 86 17 127/78 (94) 100 06/12/19 13:00 97 19 126/99 (108) 100 06/12/19 12:44 88 20 100 Mechanical Ventilator 30 06/12/19 12:36 91 12 100 Mechanical Ventilator 40 Intake and Output 06/12/19 06/13/19 19:00 07:00 Intake Total 1200 ml 2080 ml Output Total 1579 ml 1530 ml Balance -379 ml 550 ml Intake Oral 600 ml 580 ml IV Total 600 ml 1500 ml Output Urine Total 1575 ml 1330 ml Stool Total 4 ml 200 ml # Voids 9 5 # Bowel Movements 3 1 Laboratory Tests 06/13/19 06:30: White Blood Count 10.4, Red Blood Count 4.00L, Hemoglobin 11.7L, Hematocrit 34.9L, Mean Corpuscular Volume 87, Mean Corpuscular Hemoglobin 29.2, Mean Corpuscular Hemoglobin Concent 33.5, Red Cell Distribution Width 12.6, Platelet Count 153, Mean Platelet Volume 9.0, Neutrophils (%) (Auto) , Lymphocytes (%) ( Auto) , Monocytes (%) (Auto) , Eosinophils (%) (Auto) , Basophils (%) (Auto) , Differential Total Cells Counted 100, Neutrophils % (Manual) 87H, Lymphocytes % (Manual) 5L, Monocytes % (Manual) 8, Eosinophils % (Manual) 0, Basophils % ( Manual) 0, Band Neutrophils 0, Platelet Estimate Adequate, Platelet Morphology Normal, Red Blood Cell Morphology Normal, Sodium Level 140, Potassium Level 4.0 , Chloride Level 108H, Carbon Dioxide Level 24, Anion Gap 8, Blood Urea Nitrogen 15, Creatinine 1.1, Estimat Glomerular Filtration Rate > 60, Glucose Level 143H, Calcium Level 8.6 Height (Feet): 5 Height (Inches): 5.00 Weight (Pounds): 126 Objective GENERAL: Intubated, no acute distress, sitting comfortably, alert HEENT: NCAT, non-icteric eyes, pupils PERRLA Neck: No cervical lymphadenopathy, trachea midline CV: Regular rate and rhythm, no murmurs rubs or gallops RESP: Poor inspiration, bilateral wheezing. EXT: Normal muscle tone NEURO: No obvious deficits, Astrid Caputo DO Jun 13, 2019 12:37
[2019-06-13] MEDS ORDERED: Acetaminophen 650 MG SUPP RECTAL PRN ×2 (13:15)
[2019-06-13] MEDS ORDERED: Milk of Magnesia 30ml Ud ORAL PRN (13:15)
--- NOTE | 2019-06-13 13:32 | Neurology Progress Note ---
Interim History Interim History Interim History Mr. Singh feels very well. He was transferred out of the ICU. He has been able to breathe well. He enjoyed his lunch earlier. He has been seizure-free. He denies any new neurological problems. He continues to be weak on the right side but he feels that the weakness has improved. Review of Systems Neuro Review of Systems Benign. Objective Physical Exam Last Vital Signs Date Time Temp Pulse Resp B/P (MAP) Pulse Ox O2 Delivery O2 Flow Rate FiO2 06/13/19 13:20 78 20 100 Nasal Cannula 2.0 28 78 20 100 06/13/19 12:00 98.3 150/77 (101) Laboratory Tests Test 06/13/19 06:30 White Blood Count 10.4 K/UL (4.8-10.8) Red Blood Count 4.00 M/UL (4.70-6.10) L Hemoglobin 11.7 G/DL (14.2-18.0) L Hematocrit 34.9 % (42.0-52.0) L Mean Corpuscular Volume 87 FL (80-99) Mean Corpuscular Hemoglobin 29.2 PG (27.0-31.0) Mean Corpuscular Hemoglobin Concent 33.5 G/DL (32.0-36.0) Red Cell Distribution Width 12.6 % (11.6-14.8) Platelet Count 153 K/UL (150-450) Mean Platelet Volume 9.0 FL (6.5-10.1) Neutrophils (%) (Auto) % (45.0-75.0) Lymphocytes (%) (Auto) % (20.0-45.0) Monocytes (%) (Auto) % (1.0-10.0) Eosinophils (%) (Auto) % (0.0-3.0) Basophils (%) (Auto) % (0.0-2.0) Differential Total Cells Counted 100 Neutrophils % (Manual) 87 % (45-75) H Lymphocytes % (Manual) 5 % (20-45) L Monocytes % (Manual) 8 % (1-10) Eosinophils % (Manual) 0 % (0-3) Basophils % (Manual) 0 % (0-2) Band Neutrophils 0 % (0-8) Platelet Estimate Adequate Platelet Morphology Normal Red Blood Cell Morphology Normal Sodium Level 140 MMOL/L (136-145) Potassium Level 4.0 MMOL/L (3.5-5.1) Chloride Level 108 MMOL/L (98-107) H Carbon Dioxide Level 24 MMOL/L (21-32) Anion Gap 8 mmol/L (5-15) Blood Urea Nitrogen 15 mg/dL (7-18) Creatinine 1.1 MG/DL (0.55-1.30) Estimat Glomerular Filtration Rate > 60 mL/min (>60) Glucose Level 143 MG/DL (74-106) H Calcium Level 8.6 MG/DL (8.5-10.1) Neurologic Exam Objective PHYSICAL EXAMINATION: GENERAL: He is a well-developed relatively well-nourished black gentleman, lying in an ICU bed, in no acute distress. HEAD: Normocephalic and atraumatic. EENT: Examination benign. NECK: No neck rigidity was observed. NEUROLOGICAL EXAMINATION: MENTAL STATUS EXAMINATION: He was awake and alert. He was oriented to [facility] and [facility]. He was unable to tell me the date or month. He was able to recall 3/3 words immediately, but could only remember 2/3 in 1 minute and 3 minutes. He knew that Laila is President, but could not remember Presidents prior to that. His mathematical skills were impaired. His visual-spatial function was also impaired. SPEECH: He had no dysarthria. LANGUAGE: He had an anomia for low and mid frequency words. CRANIAL NERVE EXAMINATION: II: The visual velasquez were intact to confrontation testing. III, IV & : The external ocular movements were full and the pupils 3 mm in diameter, equal, round, regular, and reactive to light. V: He had normal facial sensations and the temporales, masseters, and pterygoids functioned normally. VII: He had a mild right seventh central facial paresis. VIII: He was able to hear and had no nystagmus. IX: The palate moves symmetrically on phonation. X: He had no hoarseness of voice. XI: The sternocleidomastoids and trapezii did function. XII: Could not be tested adequately. MOTOR SYSTEM: The tone was minimally increased with a mild degree of spasticity on the right side. Examination of muscle mass revealed no focal wasting. Examination of power revealed G 5/5 power except for G 4+/5 power in the right finger extensors and iliopsoas. SENSORY EXAMINATION: He had intact sensations to pinprick and light touch. He was unable to cooperate for other sensory modalities. REFLEXES: 2+ on the right and 1+ on the left in the biceps, triceps, brachioradialis, and knees, 0 at both ankles. The plantar responses were flexor bilaterally. COORDINATION: He performed well on [id number] testing. STANCE & GAIT: Could not be tested. Impression/Recommendations Diagnostic Impression 1. Mr. Kevin Singh is a 59-year-old, right-handed, black gentleman, with a past history of COPD, hypertension, diabetes mellitus, dyslipidemia, cerebrovascular disease with prior stroke associated with right-sided weakness, and a focal seizure disorder with secondary generalization for which he takes Keppra 500 mg twice a day, with good seizure control. He was hospitalized in the early hours of 06/10/2019 after he developed increasing shortness of breath and he became significantly more short of breath and had to be intubated and artificially ventilated. 2. He feels very well. He was transferred out of the ICU. He has been able to breathe well. He enjoyed his lunch earlier. He has been seizure-free. He denies any new neurological problems. He continues to be weak on the right side but he feels that the weakness has improved. 3. On neurological examination, at this time, he is oriented to self, [facility] and 2019. He has significant problems with recent and remote memory, visuospatial function, higher cognitive function and language. 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 He does have a right seventh central facial paresis, a right hemiparesis involving the finger extensors and iliopsoas, and brisker deep tendon reflexes on the right side compared to the left. 4. The EEG performed on 06/10/2019 revealed an encephalopathy of a moderate degree with a definite toxic component as evidenced by generalized spindle-like activity but no interictal or ictal discharges. 5. The patient's history and neurological examination are most consistent with an acute exacerbation of COPD with respiratory failure. 6. He does have a prior history of stroke with right hemiparesis. 7. He also has a prior history of a post stroke seizure disorder and tells me that his last seizure was approximately a year and a half ago. From what he describes he has focal seizures with secondary generalization. 8. His present altered mental state is related to an encephalopathy due to respiratory failure, the underlying structural brain disease related to the stroke, and the mind altering drugs that he was getting. Recommendations 1. Continue present management. 2. Continue Keppra 500 mg intravenously every 12 hours. When the patient is able to take oral medicines, the dose of Keppra can be changed to an identical dose given orally. 3. Treatment of respiratory failure as per Dr. Chino. 4. Observe closely. Royer Corona M.D., M.S.P.H. Royer Corona MD Jun 13, 2019 13:32
[2019-06-13] MEDS ORDERED: NS 275ml ONE ×2 (15:42→17:47)
[2019-06-13] MEDS ORDERED: Tubing IV Secondary IV ONE ×2 (15:42→17:47)
[2019-06-13] MEDS ORDERED: 1/2 NS 1000ml IV ONE (15:42)
--- NOTE | 2019-06-13 19:24 | NUR ---
HAND-OFF: Report given to YAKELIN Dallas. Pt is in stable condition; plan of care endorsed.
--- NOTE | 2019-06-13 19:30 | NUR ---
NURSE NOTES: Report received from YAKELIN Lopez. Pt shows no acute signs of distress, A and Ox4, denies pain/SOB. Respirations are even and unlabored on 2 L NC. IV site patent and intact. Bed is at lowest position, locked, side rails x2 bed alarm on, and call light within reach. VSS.
--- NOTE | 2019-06-13 20:44 | Pulmonology Progress Note ---
Assessment/Plan Assessment/Plan (1) Bipolar 1 disorder (2) HTN (hypertension) (3) CAD (coronary artery disease) (4) Lactic acid acidosis (5) COPD exacerbation (6) Acute hypercapnic respiratory failure (7) Ventilator dependence (8) Seizure disorder Assessment/Plan: better today on ra Optimize pulmonary hygiene/mobilize as tolerated RTC and PRN DUOnebs Decrease SM to 30 IV BID and taper Levaquin/Vanco per ID Keppra per neuro Monitor volumes and renal function PO per speech F/U cards recs Hep SQ FC watch cxr lll, encourage IS cxr saturday Subjective Constitutional: Reports: no symptoms HEENT: Repors: no symptoms Respiratory: Reports: productive cough, shortness of breath Gastrointestinal/Abdominal: Reports: no symptoms Genitourinary: Reports: no symptoms Neurologic: Reports: no symptoms Allergies: Coded Allergies: PENICILLINS (Verified Allergy, Unknown, 07/04/16) Subjective off o2 feeling better no cp nv or bleeding minimally oob tolerating po Objective Last 24 Hour Vital Signs Date Time Temp Pulse Resp B/P (MAP) Pulse Ox O2 Delivery O2 Flow Rate FiO2 06/13/19 19:56 97 Nasal Cannula 2.0 28 06/13/19 19:56 82 18 100 Nasal Cannula 2.0 28 81 18 96 06/13/19 19:54 97.0 55 18 151/87 (108) 97 55 06/13/19 16:00 66 06/13/19 15:53 97.8 72 20 130/78 (95) 98 72 06/13/19 13:20 78 20 100 Nasal Cannula 2.0 28 78 20 100 06/13/19 12:00 98.3 84 19 150/77 (101) 98 84 06/13/19 12:00 72 06/13/19 11:00 70 19 132/76 (94) 100 70 06/13/19 10:00 72 17 134/80 (98) 99 72 06/13/19 09:00 98.3 92 21 115/59 (77) 100 92 06/13/19 08:00 94 18 117/95 (102) 100 06/13/19 08:00 Nasal Cannula 2.0 06/13/19 08:00 98 06/13/19 07:00 83 20 100 Nasal Cannula 2.0 28 76 20 100 06/13/19 07:00 94 19 90/70 (77) 100 06/13/19 07:00 99 Nasal Cannula 2.0 28 06/13/19 06:00 72 18 133/77 (95) 100 06/13/19 05:00 65 18 133/76 (95) 100 06/13/19 04:00 88 06/13/19 04:00 97.7 88 20 140/73 (95) 99 06/13/19 04:00 Nasal Cannula 3.0 Nasal Cannula 3.0 Nasal Cannula 3.0 06/13/19 03:00 71 18 123/77 (92) 100 06/13/19 02:00 81 22 136/71 (92) 100 06/13/19 01:00 85 26 130/69 (89) 100 06/13/19 00:34 81 21 100 Nasal Cannula 2.0 28 80 22 100 06/13/19 00:00 98.2 71 26 138/78 (98) 100 06/13/19 00:00 Nasal Cannula 3.0 Nasal Cannula 3.0 Nasal Cannula 3.0 06/13/19 00:00 71 06/12/19 23:00 77 22 125/69 (87) 100 06/12/19 22:00 72 22 127/73 (91) 100 06/12/19 21:00 79 18 138/76 (96) 99 Intake and Output 06/12/19 06/13/19 19:00 07:00 Intake Total 1200 ml 2080 ml Output Total 1579 ml 1530 ml Balance -379 ml 550 ml Intake Oral 600 ml 580 ml IV Total 600 ml 1500 ml Output Urine Total 1575 ml 1330 ml Stool Total 4 ml 200 ml # Voids 9 5 # Bowel Movements 3 1 General Appearance: WD/WN Respiratory/Chest: lungs clear, normal breath sounds Cardiovascular: normal rate, regular rhythm Abdomen: soft, non tender, no organomegaly Extremities: no cyanosis Neurologic/Psychiatric: abnormal gait, alert, oriented x 3 Laboratory Tests 06/13/19 06:30: White Blood Count 10.4, Red Blood Count 4.00L, Hemoglobin 11.7L, Hematocrit 34.9L, Mean Corpuscular Volume 87, Mean Corpuscular Hemoglobin 29.2, Mean Corpuscular Hemoglobin Concent 33.5, Red Cell Distribution Width 12.6, Platelet Count 153, Mean Platelet Volume 9.0, Neutrophils (%) (Auto) , Lymphocytes (%) ( Auto) , Monocytes (%) (Auto) , Eosinophils (%) (Auto) , Basophils (%) (Auto) , Differential Total Cells Counted 100, Neutrophils % (Manual) 87H, Lymphocytes % (Manual) 5L, Monocytes % (Manual) 8, Eosinophils % (Manual) 0, Basophils % ( Manual) 0, Band Neutrophils 0, Platelet Estimate Adequate, Platelet Morphology Normal, Red Blood Cell Morphology Normal, Sodium Level 140, Potassium Level 4.0 , Chloride Level 108H, Carbon Dioxide Level 24, Anion Gap 8, Blood Urea Nitrogen 15, Creatinine 1.1, Estimat Glomerular Filtration Rate > 60, Glucose Level 143H, Calcium Level 8.6 Current Medications Medications (Trade) Dose Ordered Sig/Lara Route PRN Reason Start Time Stop Time Status Last Admin Dose Admin Acetaminophen (Tylenol) 650 mg Q4H PRN ORAL Mild Pain (Pain Scale 1-3) 06/13/19 12:00 07/13/19 11:59 Acetaminophen (Tylenol) 650 mg Q4H PRN ORAL T>100.5 06/13/19 13:15 07/10/19 13:14 Acetaminophen (Tylenol) 650 mg Q4H PRN RECTAL T>100.5 06/13/19 13:15 07/10/19 13:14 Al Hydroxide/Mg Hydroxide (Mylanta II) 30 ml Q6H PRN ORAL dyspepsia 06/13/19 12:00 07/10/19 11:59 Albuterol/ Ipratropium (Albuterol/ Ipratropium) 3 ml Q6HRT HHN 06/13/19 13:00 06/15/19 18:59 06/13/19 19:53 Bisacodyl (Dulcolax) 10 mg DAILYPRN PRN RECTAL Constipation 06/13/19 12:00 07/10/19 11:59 Dextrose (Dextrose 50%) 25 ml Q30M PRN IV Hypoglycemia 06/13/19 12:15 07/10/19 13:14 Dextrose (Dextrose 50%) 50 ml Q30M PRN IV Hypoglycemia 06/13/19 12:15 07/10/19 13:14 Diphenhydramine HCl (Benadryl) 25 mg Q6H PRN ORAL Itching/Pruritis 06/13/19 12:00 07/10/19 11:59 Docusate Sodium (Colace) 100 mg EVERY 12 HOURS ORAL 06/13/19 21:00 07/10/19 20:59 Heparin Sodium (Porcine) (Heparin 5000 units/ml) 5,000 units EVERY 12 HOURS SUBQ 06/13/19 21:00 07/10/19 15:50 Levetiracetam 100 ml @ 400 mls/hr Q12HR@0500,1700 IVPB 06/13/19 17:00 07/10/19 16:59 06/13/19 17:01 Levofloxacin 150 ml @ 100 mls/hr Q24H IVPB 06/13/19 18:00 06/17/19 17:59 06/13/19 18:06 Lorazepam (Ativan 2mg/ml 1ml) 0.5 mg Q4H PRN IV For Anxiety 06/13/19 12:00 06/17/19 11:59 Magnesium Hydroxide (Mom) 30 ml HSPRN PRN ORAL Constipation 06/13/19 13:15 07/10/19 13:14 Methylprednisolone Sodium Succinate (Solu-MEDROL) 30 mg EVERY 12 HOURS IVP 06/13/19 21:00 07/10/19 20:59 Metronidazole 100 ml @ 100 mls/hr Q8HR IVPB 06/13/19 14:00 06/17/19 21:59 06/13/19 13:51 Morphine Sulfate (Morphine Sulfate) 1 mg Q4H PRN IVP Mild Pain (Pain Scale 1-3) 06/13/19 12:00 06/17/19 11:59 Morphine Sulfate (Morphine Sulfate) 2 mg Q4H PRN IVP Moderate Pain (Pain Scale 4-6) 06/13/19 12:00 06/17/19 11:59 Morphine Sulfate (Morphine Sulfate) 4 mg Q4H PRN IVP Severe Pain (Pain Scale 7-10) 06/13/19 12:00 06/17/19 11:59 Nitroglycerin (Ntg) 0.4 mg Q5M PRN SL Prn Chest Pain 06/13/19 11:50 07/10/19 13:14 Ondansetron HCl (Zofran) 4 mg Q6H PRN IVP Nausea & Vomiting 06/13/19 12:00 07/10/19 11:59 Pantoprazole (Protonix) 40 mg DAILY IVP 06/14/19 09:00 07/11/19 09:59 Polyethylene Glycol (Miralax) 17 gm DAILYPRN PRN ORAL Constipation 06/13/19 12:00 07/10/19 11:59 Prochlorperazine (Compazine) 10 mg Q6H PRN IVP Nausea & Vomiting 06/13/19 12:00 07/10/19 11:59 Sodium Chloride 1,000 ml @ 100 mls/hr Q10H IV 06/13/19 11:45 07/10/19 15:14 06/13/19 11:56 Zolpidem Tartrate (Ambien) 5 mg HSPRN PRN ORAL Insomnia 06/13/19 21:00 06/17/19 20:59 Ruthie Mendenhall DO Jun 13, 2019 20:44
[2019-06-13] MEDS ORDERED: Zolpidem 5mg tab ORAL PRN (21:00)
[2019-06-14] MEDS: Albuterol/Ipratropium 3ml neb HHN SCH ×4 (01:29→18:46)
[2019-06-14 04:00] VITALS: BP 135/75
[2019-06-14] MEDS: levETIRAcetam 500mg/NS100ml 100 ML IVPB SCH ×2 (05:10→16:31)
[2019-06-14 06:07] LABS: HEMATOCRIT 39.3 % (42.0-52.0); HEMOGLOBIN 13.1 G/DL (14.2-18.0); MEAN CORPUSCULAR VOLUME 87 FL (80-99); PLATELET COUNT 166 K/UL (150-450); RED CELL DISTRIBUTION WIDTH 12.6 % (11.6-14.8); WHITE BLOOD COUNT 7.3 K/UL (4.8-10.8)
[2019-06-14 06:42] LABS: ANION GAP 10 mmol/L (5-15); BLOOD UREA NITROGEN 10 mg/dL (7-18); CARBON DIOXIDE 24 MMOL/L (21-32); CHLORIDE 107 MMOL/L (98-107); SODIUM 141 MMOL/L (136-145)
--- NOTE | 2019-06-14 07:15 | NUR ---
HAND-OFF: Report given to YAKELIN Lopez.
--- NOTE | 2019-06-14 07:19 | NUR ---
NURSE NOTES: Report received from YAKELIN Parmar. Pt shows no signs of distress, A+Ox4, denies pain/SOB. Respirations are even and unlabored on 2 L NC. IV site is patent and intact running fluids @ prescribed rate. Bed is at lowest position, brakes engaged, siderails x2 bed alarm on, and call light within reach. Pt is in stable condition; will continue to monitor.
[2019-06-14 08:00] VITALS: BP 133/80
[2019-06-14] MEDS: Pantoprazole Inj IVP SCH (08:55)
[2019-06-14] MEDS: Solu-MEDROL 40mg Inj IVP SCH ×2 (08:56→21:25)
[2019-06-14] MEDS: Docusate 100mg cap ORAL SCH ×2 (09:00→21:25)
[2019-06-14] MEDS: Heparin 5000 units/ml inj SUBQ SCH ×2 (09:04→21:27)
--- NOTE | 2019-06-14 11:27 | General Progress Note ---
Assessment/Plan Assessment/Plan: 59 yo M PMH of pericarditis?, COPD, seizures was intubated in ED for acute hypoxia # Acute Hypoxic and Hypercapnic Respiratory failure s/p Intubation 06/10 on admission, status post extubation 06/12/2019 # COPD exacerbation - ID consult And antibiotics per ID: s/p Vanco, continue Levaquin and Flagyl - f/u cultures and repeat cxr in am reviewed - echo within normal limits -Continue steroids, wean per pulmonary recommendations # Lactic acidosis worsening, ddx: seizures, sepsis, s.e. of breathing treatment, ; resolved - continue to monitor #Encephalopathy secondary to multifactorial including metabolic + seizure history, resolved -Continue current management # Seizure d/o - EEG, follow-up results: Reviewed no ictal changes - cont keppra - neuro consult appreciate recs - ct head negative # h/o Pericarditic - f/u echo as above, reviewed # Hyponatremia, resolved - IV - ctm # Hypomagnesemia - replace - ctm, replace FULL CODE 45 minutes of critical care time spent evaluating patient's vitals, exam, labs, imaging, interpretation of results, coordination of care among many specialists. Subjective Date patient seen: Jun 14, 2019 Allergies: Coded Allergies: PENICILLINS (Verified Allergy, Unknown, 07/04/16) Subjective Patient extubated 06/12/2019. resting comfortably. some wheezing however improved. denies cp or dizziness Objective Last 24 Hour Vital Signs Date Time Temp Pulse Resp B/P (MAP) Pulse Ox O2 Delivery O2 Flow Rate FiO2 06/14/19 09:00 Nasal Cannula 2.0 06/14/19 08:00 90 06/14/19 08:00 97.3 81 18 133/80 (97) 98 81 06/14/19 06:46 97 Nasal Cannula 2.0 28 06/14/19 06:46 78 16 97 Nasal Cannula 2.0 28 78 16 97 06/14/19 04:00 97.7 83 17 135/75 (95) 97 83 06/14/19 04:00 64 06/14/19 01:29 83 18 99 Nasal Cannula 2.0 28 78 18 97 06/14/19 00:00 68 06/13/19 23:05 98.2 66 18 145/89 (107) 96 66 06/13/19 21:00 Nasal Cannula 2.0 06/13/19 20:00 77 06/13/19 19:56 97 Nasal Cannula 2.0 28 06/13/19 19:56 82 18 100 Nasal Cannula 2.0 28 81 18 96 06/13/19 19:54 97.0 55 18 151/87 (108) 97 55 06/13/19 16:00 66 06/13/19 15:53 97.8 72 20 130/78 (95) 98 72 06/13/19 13:20 78 20 100 Nasal Cannula 2.0 28 78 20 100 06/13/19 12:00 98.3 84 19 150/77 (101) 98 84 06/13/19 12:00 72 Intake and Output 06/13/19 06/14/19 19:00 07:00 Intake Total 880 ml 1726 ml Output Total 540 ml 2500 ml Balance 340 ml -774 ml Intake Oral 480 ml IV Total 400 ml 1726 ml Output Urine Total 540 ml 2500 ml # Voids 2 2 # Bowel Movements 3 Laboratory Tests 06/14/19 05:40: White Blood Count 7.3, Red Blood Count 4.50L, Hemoglobin 13.1L, Hematocrit 39.3L , Mean Corpuscular Volume 87, Mean Corpuscular Hemoglobin 29.2, Mean Corpuscular Hemoglobin Concent 33.4, Red Cell Distribution Width 12.6, Platelet Count 166, Mean Platelet Volume 7.3, Neutrophils (%) (Auto) , Lymphocytes (%) ( Auto) , Monocytes (%) (Auto) , Eosinophils (%) (Auto) , Basophils (%) (Auto) , Differential Total Cells Counted 100, Neutrophils % (Manual) 89H, Lymphocytes % (Manual) 10L, Monocytes % (Manual) 1, Eosinophils % (Manual) 0, Basophils % ( Manual) 0, Band Neutrophils 0, Platelet Estimate Adequate, Platelet Morphology Normal, Red Blood Cell Morphology Normal, Sodium Level 141, Potassium Level 4.0 , Chloride Level 107, Carbon Dioxide Level 24, Anion Gap 10, Blood Urea Nitrogen 10, Creatinine 1.0, Estimat Glomerular Filtration Rate > 60, Glucose Level 146H, Calcium Level 9.0 Height (Feet): 5 Height (Inches): 5.00 Weight (Pounds): 129 Objective GENERAL: Intubated, no acute distress, sitting comfortably, alert HEENT: NCAT, non-icteric eyes, pupils PERRLA Neck: No cervical lymphadenopathy, trachea midline CV: Regular rate and rhythm, no murmurs rubs or gallops RESP: Poor inspiration, left sided wheeze, however improved EXT: Normal muscle tone NEURO: No obvious deficits, Astrid Caputo DO Jun 14, 2019 11:27
[2019-06-14 12:00] VITALS: BP 125/83
--- NOTE | 2019-06-14 13:58 | Neurology Progress Note ---
Interim History Interim History Interim History Mr. Singh feels well. He was enjoying his lunch when I went to see him. He has been able to breathe well. He has been seizure-free. He denies any new neurological problems. He continues to be weak on the right side but he feels that the weakness is close to its baseline. Review of Systems Neuro Review of Systems Benign. Objective Physical Exam Last Vital Signs Date Time Temp Pulse Resp B/P (MAP) Pulse Ox O2 Delivery O2 Flow Rate FiO2 06/14/19 12:55 82 16 100 Nasal Cannula 2.0 28 80 18 97 06/14/19 12:00 98.5 125/83 (97) Laboratory Tests Test 06/14/19 05:40 White Blood Count 7.3 K/UL (4.8-10.8) Red Blood Count 4.50 M/UL (4.70-6.10) L Hemoglobin 13.1 G/DL (14.2-18.0) L Hematocrit 39.3 % (42.0-52.0) L Mean Corpuscular Volume 87 FL (80-99) Mean Corpuscular Hemoglobin 29.2 PG (27.0-31.0) Mean Corpuscular Hemoglobin Concent 33.4 G/DL (32.0-36.0) Red Cell Distribution Width 12.6 % (11.6-14.8) Platelet Count 166 K/UL (150-450) Mean Platelet Volume 7.3 FL (6.5-10.1) Neutrophils (%) (Auto) % (45.0-75.0) Lymphocytes (%) (Auto) % (20.0-45.0) Monocytes (%) (Auto) % (1.0-10.0) Eosinophils (%) (Auto) % (0.0-3.0) Basophils (%) (Auto) % (0.0-2.0) Differential Total Cells Counted 100 Neutrophils % (Manual) 89 % (45-75) H Lymphocytes % (Manual) 10 % (20-45) L Monocytes % (Manual) 1 % (1-10) Eosinophils % (Manual) 0 % (0-3) Basophils % (Manual) 0 % (0-2) Band Neutrophils 0 % (0-8) Platelet Estimate Adequate Platelet Morphology Normal Red Blood Cell Morphology Normal Sodium Level 141 MMOL/L (136-145) Potassium Level 4.0 MMOL/L (3.5-5.1) Chloride Level 107 MMOL/L (98-107) Carbon Dioxide Level 24 MMOL/L (21-32) Anion Gap 10 mmol/L (5-15) Blood Urea Nitrogen 10 mg/dL (7-18) Creatinine 1.0 MG/DL (0.55-1.30) Estimat Glomerular Filtration Rate > 60 mL/min (>60) Glucose Level 146 MG/DL (74-106) H Calcium Level 9.0 MG/DL (8.5-10.1) Neurologic Exam Objective PHYSICAL EXAMINATION: GENERAL: He is a well-developed relatively well-nourished black gentleman, lying in bed, in no acute distress. HEAD: Normocephalic and atraumatic. EENT: Examination benign. NECK: No neck rigidity was observed. NEUROLOGICAL EXAMINATION: MENTAL STATUS EXAMINATION: He was awake and alert. He was oriented to self, 2018 [facility]. He was unable to tell me the month or name of the hospital. He was able to recall 3/3 words immediately, but could only remember 2/3 in 1 minute and 3 minutes. He knew that Laila is President, but could not remember Presidents prior to that. His mathematical skills were impaired. His visuospatial function was also impaired. SPEECH: He had no dysarthria. LANGUAGE: He had an anomia for low and mid frequency words. CRANIAL NERVE EXAMINATION: II: The visual velasquez were intact to confrontation testing. III, IV & : The external ocular movements were full and the pupils 3 mm in diameter, equal, round, regular, and reactive to light. V: He had normal facial sensations and the temporales, masseters, and pterygoids functioned normally. VII: He had a mild right seventh central facial paresis. VIII: He was able to hear and had no nystagmus. IX: The palate moves symmetrically on phonation. X: He had no hoarseness of voice. XI: The sternocleidomastoids and trapezii did function. XII: Could not be tested adequately. MOTOR SYSTEM: The tone was minimally increased with a mild degree of spasticity on the right side. Examination of muscle mass revealed no focal wasting. Examination of power revealed G 5/5 power except for G 4+/5 power in the right finger extensors and iliopsoas. SENSORY EXAMINATION: He had intact sensations to pinprick and light touch. He was unable to cooperate for other sensory modalities. REFLEXES: 2+ on the right and 1+ on the left in the biceps, triceps, brachioradialis, and knees, 0 at both ankles. The plantar responses were flexor bilaterally. COORDINATION: He performed well on [id number] testing. STANCE & GAIT: Could not be tested. Impression/Recommendations Diagnostic Impression 1. Mr. Kevin Singh is a 59-year-old, right-handed, black gentleman, with a past history of COPD, hypertension, diabetes mellitus, dyslipidemia, cerebrovascular disease with prior stroke associated with right-sided weakness, and a focal seizure disorder with secondary generalization for which he takes Keppra 500 mg twice a day, with good seizure control. He was hospitalized in the early hours of 06/10/2019 after he developed increasing shortness of breath and he became significantly more short of breath and had to be intubated and artificially ventilated. 2. He feels well. He was enjoying his lunch when I went to see him. He has been able to breathe well. He has been seizure-free. He denies any new neurological problems. He continues to be weak on the right side but he feels that the weakness is close to its baseline. 3. On neurological examination, at this time, he is oriented to self, [facility] [place]. He has significant problems with recent and remote memory, visuospatial function, higher cognitive function and language. 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 He does have a right seventh central facial paresis, a right hemiparesis involving the finger extensors and iliopsoas, and brisker deep tendon reflexes on the right side compared to the left. 4. The EEG performed on 06/10/2019 revealed an encephalopathy of a moderate degree with a definite toxic component as evidenced by generalized spindle-like activity but no interictal or ictal discharges. 5. The patient's history and neurological examination are most consistent with an acute exacerbation of COPD with respiratory failure, which has now resolved. 6. He does have a prior history of stroke with right hemiparesis. 7. He also has a prior history of a post stroke seizure disorder and tells me that his last seizure was approximately a year and a half ago. From what he describes he has focal seizures with secondary generalization. 8. His present altered mental state was related to an encephalopathy due to respiratory failure, the underlying structural brain disease related to the stroke, and the mind altering drugs that he was getting. His encephalopathy is resolving. Recommendations 1. Continue present management. 2. Continue Keppra 500 mg every 12 hours. 3. Treatment of respiratory failure as per Dr. Chino. 4. Observe closely. Royer Corona M.D., M.S.P.H. Royer Corona MD Jun 14, 2019 13:58
--- NOTE | 2019-06-14 14:27 | Infectious Diseases Prog Note ---
Assessment/Plan Assessment/Plan ASSESSMENT AND PLAN: 1. sepsis, pneumonia, leukocytosis, respiratory failure, aspiration risk, sz - levofloxacin plus flagyl x 1 week, can change to oral levofloxacin and flagyl upon discharge - now extubated, clinically improved, less sob - sputum culture with normal romeo - monitor labs and chest x-ray 2. Mild hyponatremia. 3. The patient has a history of seizures. 4. CVA. 5. Aspiration risk. 6. Hypertension. 7. Asthma. 8. COPD. 9. Diabetes. 10. Blood sugar and blood pressure treatment per primary. 11. CAD. 12. Bipolar disease. 13. Vent dependency. 14. IV steroids. 15. Lactic acidosis. 16. Allergy to penicillin, tolerates cephalosporin. 17. Social history negative. 18. Family history noncontributory. 19. MAR was noted. 20. Case discussed with RN. 21. Continue treatment per primary consultants. Subjective Constitutional: Denies: fever HEENT: Reports: congestion - mild Respiratory: Reports: shortness of breath - mild Cardiovascular: Denies: chest pain Gastrointestinal/Abdominal: Denies: nausea, vomiting, diarrhea Genitourinary: Denies: dysuria, hematuria Neurologic: Denies: headache Psychiatric: Denies: depression Skin: Denies: rash Hematologic: Denies: bleeding Musculoskeletal: Denies: pain Allergies: Coded Allergies: PENICILLINS (Verified Allergy, Unknown, 07/04/16) Objective Vital Signs Last 24 Hour Vital Signs Date Time Temp Pulse Resp B/P (MAP) Pulse Ox O2 Delivery O2 Flow Rate FiO2 06/14/19 12:55 82 16 100 Nasal Cannula 2.0 28 80 18 97 06/14/19 12:00 98.5 70 18 125/83 (97) 94 70 06/14/19 09:00 Nasal Cannula 2.0 06/14/19 08:00 90 06/14/19 08:00 97.3 81 18 133/80 (97) 98 81 06/14/19 06:46 97 Nasal Cannula 2.0 28 06/14/19 06:46 78 16 97 Nasal Cannula 2.0 28 78 16 97 06/14/19 04:00 97.7 83 17 135/75 (95) 97 83 06/14/19 04:00 64 06/14/19 01:29 83 18 99 Nasal Cannula 2.0 28 78 18 97 06/14/19 00:00 68 8/24/19 23:05 98.2 66 18 145/89 (107) 96 66 06/13/19 21:00 Nasal Cannula 2.0 06/13/19 20:00 77 06/13/19 19:56 97 Nasal Cannula 2.0 28 06/13/19 19:56 82 18 100 Nasal Cannula 2.0 28 81 18 96 06/13/19 19:54 97.0 55 18 151/87 (108) 97 55 06/13/19 16:00 66 06/13/19 15:53 97.8 72 20 130/78 (95) 98 72 Height (Feet): 5 Height (Inches): 5.00 Weight (Pounds): 129 General Appearance: no acute distress HEENT: normocephalic, atraumatic, anicteric, mucous membranes moist Respiratory/Chest: no accessory muscle use, crackles/rales, rhonchi - bilaterally Cardiovascular: normal rate, regular rhythm, no gallop/murmur, no JVD Abdomen: normal bowel sounds, soft, non tender, no organomegaly, non distended Genitourinary: other - no longoria, no cva pain Extremities: no cyanosis Skin: no rash 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 Left basilar nodular opacity probably represents a nipple shadow. The heart size is normal. Stable satisfactory position of endotracheal tube. Normal heart size Impression: Unchanged, over one day, findings as above. 06/13 - chest x-ray - IMPRESSION: 1. Interval development of left lung base retrocardiac rounded opacity may be a consolidation. 2. Query tiny right pleural effusion. Microbiology Date/Time Source Procedure Growth Status 06/10/19 09:25 Blood Blood Culture - Preliminary NO GROWTH AFTER 48 HOURS Resulted 06/10/19 14:50 Sputum Induced Gram Stain - Final Complete 06/10/19 14:50 Sputum Induced Sputum Culture - Final NORMAL UPPER RESPIRATORY ROMEO PRESENT Complete Laboratory Tests Test 06/14/19 05:40 White Blood Count 7.3 K/UL (4.8-10.8) Red Blood Count 4.50 M/UL (4.70-6.10) L Hemoglobin 13.1 G/DL (14.2-18.0) L Hematocrit 39.3 % (42.0-52.0) L Mean Corpuscular Volume 87 FL (80-99) Mean Corpuscular Hemoglobin 29.2 PG (27.0-31.0) Mean Corpuscular Hemoglobin Concent 33.4 G/DL (32.0-36.0) Red Cell Distribution Width 12.6 % (11.6-14.8) Platelet Count 166 K/UL (150-450) Mean Platelet Volume 7.3 FL (6.5-10.1) Neutrophils (%) (Auto) % (45.0-75.0) Lymphocytes (%) (Auto) % (20.0-45.0) Monocytes (%) (Auto) % (1.0-10.0) Eosinophils (%) (Auto) % (0.0-3.0) Basophils (%) (Auto) % (0.0-2.0) Differential Total Cells Counted 100 Neutrophils % (Manual) 89 % (45-75) H Lymphocytes % (Manual) 10 % (20-45) L Monocytes % (Manual) 1 % (1-10) Eosinophils % (Manual) 0 % (0-3) Basophils % (Manual) 0 % (0-2) Band Neutrophils 0 % (0-8) Platelet Estimate Adequate Platelet Morphology Normal Red Blood Cell Morphology Normal Sodium Level 141 MMOL/L (136-145) Potassium Level 4.0 MMOL/L (3.5-5.1) Chloride Level 107 MMOL/L (98-107) Carbon Dioxide Level 24 MMOL/L (21-32) Anion Gap 10 mmol/L (5-15) Blood Urea Nitrogen 10 mg/dL (7-18) Creatinine 1.0 MG/DL (0.55-1.30) Estimat Glomerular Filtration Rate > 60 mL/min (>60) Glucose Level 146 MG/DL (74-106) H Calcium Level 9.0 MG/DL (8.5-10.1) Current Medications Medications (Trade) Dose Ordered Sig/Lara Route PRN Reason Start Time Stop Time Status Last Admin Dose Admin Acetaminophen (Tylenol) 650 mg Q4H PRN ORAL Mild Pain (Pain Scale 1-3) 06/13/19 12:00 07/13/19 11:59 Acetaminophen (Tylenol) 650 mg Q4H PRN ORAL T>100.5 06/13/19 13:15 07/10/19 13:14 Acetaminophen (Tylenol) 650 mg Q4H PRN RECTAL T>100.5 06/13/19 13:15 07/10/19 13:14 Al Hydroxide/Mg Hydroxide (Mylanta II) 30 ml Q6H PRN ORAL dyspepsia 06/13/19 12:00 07/10/19 11:59 Albuterol/ Ipratropium (Albuterol/ Ipratropium) 3 ml Q6HRT HHN 06/13/19 13:00 06/15/19 18:59 06/14/19 12:54 Bisacodyl (Dulcolax) 10 mg DAILYPRN PRN RECTAL Constipation 06/13/19 12:00 07/10/19 11:59 Dextrose (Dextrose 50%) 25 ml Q30M PRN IV Hypoglycemia 06/13/19 12:15 07/10/19 13:14 Dextrose (Dextrose 50%) 50 ml Q30M PRN IV Hypoglycemia 06/13/19 12:15 07/10/19 13:14 Diphenhydramine HCl (Benadryl) 25 mg Q6H PRN ORAL Itching/Pruritis 06/13/19 12:00 07/10/19 11:59 Docusate Sodium (Colace) 100 mg EVERY 12 HOURS ORAL 06/13/19 21:00 07/10/19 20:59 06/13/19 21:51 Heparin Sodium (Porcine) (Heparin 5000 units/ml) 5,000 units EVERY 12 HOURS SUBQ 06/13/19 21:00 07/10/19 15:50 06/14/19 09:04 Levetiracetam 100 ml @ 400 mls/hr Q12HR@0500,1700 IVPB 06/13/19 17:00 07/10/19 16:59 06/14/19 05:10 Levofloxacin 150 ml @ 100 mls/hr Q24H IVPB 06/13/19 18:00 06/17/19 17:59 06/13/19 18:06 Lorazepam (Ativan 2mg/ml 1ml) 0.5 mg Q4H PRN IV For Anxiety 06/13/19 12:00 06/17/19 11:59 Magnesium Hydroxide (Mom) 30 ml HSPRN PRN ORAL Constipation 06/13/19 13:15 07/10/19 13:14 Methylprednisolone Sodium Succinate (Solu-MEDROL) 30 mg EVERY 12 HOURS IVP 06/13/19 21:00 07/10/19 20:59 06/14/19 08:56 Metronidazole 100 ml @ 100 mls/hr Q8HR IVPB 06/13/19 14:00 06/17/19 21:59 06/14/19 14:10 Morphine Sulfate (Morphine Sulfate) 1 mg Q4H PRN IVP Mild Pain (Pain Scale 1-3) 06/13/19 12:00 06/17/19 11:59 Morphine Sulfate (Morphine Sulfate) 2 mg Q4H PRN IVP Moderate Pain (Pain Scale 4-6) 06/13/19 12:00 06/17/19 11:59 Morphine Sulfate (Morphine Sulfate) 4 mg Q4H PRN IVP Severe Pain (Pain Scale 7-10) 06/13/19 12:00 06/17/19 11:59 Nitroglycerin (Ntg) 0.4 mg Q5M PRN SL Prn Chest Pain 06/13/19 11:50 07/10/19 13:14 Ondansetron HCl (Zofran) 4 mg Q6H PRN IVP Nausea & Vomiting 06/13/19 12:00 07/10/19 11:59 Pantoprazole (Protonix) 40 mg DAILY IVP 06/14/19 09:00 07/11/19 09:59 06/14/19 08:55 Polyethylene Glycol (Miralax) 17 gm DAILYPRN PRN ORAL Constipation 06/13/19 12:00 07/10/19 11:59 Prochlorperazine (Compazine) 10 mg Q6H PRN IVP Nausea & Vomiting 06/13/19 12:00 07/10/19 11:59 Sodium Chloride 1,000 ml @ 100 mls/hr Q10H IV 06/13/19 11:45 07/10/19 15:14 06/14/19 08:56 Zolpidem Tartrate (Ambien) 5 mg HSPRN PRN ORAL Insomnia 06/13/19 21:00 06/17/19 20:59 Reji Maier MD Jun 14, 2019 14:27
[2019-06-14 16:00] VITALS: BP 120/61
[2019-06-14] MEDS ORDERED: Tubing IV Secondary IV ONE (16:04)
--- NOTE | 2019-06-14 16:25 | NUR ---
PT Note PT ana completed, treatment initiated. Patient has muscle weakness and decreased postural stability, making him at a risk for falls. Patient can benefit from PT services to increase his muscle strength and balance for safe and independent functional mobility and gait. Addendum: 06/14/19 at 1625 by KOBE TORRES PT Amended: Links added.
--- NOTE | 2019-06-14 18:56 | Pulmonology Progress Note ---
Assessment/Plan Assessment/Plan (1) Bipolar 1 disorder (2) HTN (hypertension) (3) CAD (coronary artery disease) (4) Lactic acid acidosis (5) COPD exacerbation (6) Acute hypercapnic respiratory failure (7) Ventilator dependence (8) Seizure disorder Assessment/Plan: better today on o2 today Optimize pulmonary hygiene/mobilize as tolerated RTC and PRN DUOnebs SM to 30 IV BID and taper Levaquin/Vanco per ID Keppra per neuro Monitor volumes and renal function PO per speech F/U cards recs Hep SQ FC/ watch cxr lll, encourage IS cxr 06/16 Subjective Constitutional: Reports: no symptoms HEENT: Repors: no symptoms Respiratory: Reports: no symptoms Cardiovascular: Reports: no symptoms Allergies: Coded Allergies: PENICILLINS (Verified Allergy, Unknown, 07/04/16) Subjective on o2 feeling better no cp nv or bleeding minimally oob tolerating po no fever noted ? dispo soon Objective Last 24 Hour Vital Signs Date Time Temp Pulse Resp B/P (MAP) Pulse Ox O2 Delivery O2 Flow Rate FiO2 06/14/19 18:47 97 Nasal Cannula 2.0 28 06/14/19 18:47 72 16 100 Nasal Cannula 2.0 28 68 16 97 06/14/19 16:00 77 06/14/19 16:00 96.5 75 20 120/61 (80) 100 75 06/14/19 12:55 82 16 100 Nasal Cannula 2.0 28 80 18 97 06/14/19 12:00 98.5 70 18 125/83 (97) 94 70 06/14/19 12:00 71 06/14/19 09:00 Nasal Cannula 2.0 06/14/19 08:00 90 06/14/19 08:00 97.3 81 18 133/80 (97) 98 81 06/14/19 06:46 97 Nasal Cannula 2.0 28 06/14/19 06:46 78 16 97 Nasal Cannula 2.0 28 78 16 97 06/14/19 04:00 97.7 83 17 135/75 (95) 97 83 06/14/19 04:00 64 06/14/19 01:29 83 18 99 Nasal Cannula 2.0 28 78 18 97 06/14/19 00:00 68 06/13/19 23:05 98.2 66 18 145/89 (107) 96 66 06/13/19 21:00 Nasal Cannula 2.0 06/13/19 20:00 77 06/13/19 19:56 97 Nasal Cannula 2.0 28 06/13/19 19:56 82 18 100 Nasal Cannula 2.0 28 81 18 96 06/13/19 19:54 97.0 55 18 151/87 (108) 97 55 Intake and Output 06/13/19 06/14/19 18:59 06:59 Intake Total 1080 ml 1726 ml Output Total 730 ml 2500 ml Balance 350 ml -774 ml Intake Oral 480 ml IV Total 600 ml 1726 ml Output Urine Total 730 ml 2500 ml # Voids 3 2 # Bowel Movements 3 General Appearance: cachetic Respiratory/Chest: rhonchi Cardiovascular: normal rate, regular rhythm Abdomen: soft, non tender, no organomegaly Neurologic/Psychiatric: abnormal gait, alert, oriented x 3 Laboratory Tests 06/14/19 05:40: White Blood Count 7.3, Red Blood Count 4.50L, Hemoglobin 13.1L, Hematocrit 39.3L , Mean Corpuscular Volume 87, Mean Corpuscular Hemoglobin 29.2, Mean Corpuscular Hemoglobin Concent 33.4, Red Cell Distribution Width 12.6, Platelet Count 166, Mean Platelet Volume 7.3, Neutrophils (%) (Auto) , Lymphocytes (%) ( Auto) , Monocytes (%) (Auto) , Eosinophils (%) (Auto) , Basophils (%) (Auto) , Differential Total Cells Counted 100, Neutrophils % (Manual) 89H, Lymphocytes % (Manual) 10L, Monocytes % (Manual) 1, Eosinophils % (Manual) 0, Basophils % ( Manual) 0, Band Neutrophils 0, Platelet Estimate Adequate, Platelet Morphology Normal, Red Blood Cell Morphology Normal, Sodium Level 141, Potassium Level 4.0 , Chloride Level 107, Carbon Dioxide Level 24, Anion Gap 10, Blood Urea Nitrogen 10, Creatinine 1.0, Estimat Glomerular Filtration Rate > 60, Glucose Level 146H, Calcium Level 9.0 Current Medications Medications (Trade) Dose Ordered Sig/Lara Route PRN Reason Start Time Stop Time Status Last Admin Dose Admin Acetaminophen (Tylenol) 650 mg Q4H PRN ORAL Mild Pain (Pain Scale 1-3) 06/13/19 12:00 07/13/19 11:59 Acetaminophen (Tylenol) 650 mg Q4H PRN ORAL T>100.5 06/13/19 13:15 07/10/19 13:14 06/14/19 17:15 Acetaminophen (Tylenol) 650 mg Q4H PRN RECTAL T>100.5 06/13/19 13:15 07/10/19 13:14 Al Hydroxide/Mg Hydroxide (Mylanta II) 30 ml Q6H PRN ORAL dyspepsia 06/13/19 12:00 07/10/19 11:59 Albuterol/ Ipratropium (Albuterol/ Ipratropium) 3 ml Q6HRT HHN 06/13/19 13:00 06/15/19 18:59 06/14/19 18:46 Bisacodyl (Dulcolax) 10 mg DAILYPRN PRN RECTAL Constipation 06/13/19 12:00 07/10/19 11:59 Dextrose (Dextrose 50%) 25 ml Q30M PRN IV Hypoglycemia 06/13/19 12:15 07/10/19 13:14 Dextrose (Dextrose 50%) 50 ml Q30M PRN IV Hypoglycemia 06/13/19 12:15 07/10/19 13:14 Diphenhydramine HCl (Benadryl) 25 mg Q6H PRN ORAL Itching/Pruritis 06/13/19 12:00 07/10/19 11:59 Docusate Sodium (Colace) 100 mg EVERY 12 HOURS ORAL 06/13/19 21:00 07/10/19 20:59 06/13/19 21:51 Heparin Sodium (Porcine) (Heparin 5000 units/ml) 5,000 units EVERY 12 HOURS SUBQ 06/13/19 21:00 07/10/19 15:50 06/14/19 09:04 Levetiracetam 100 ml @ 400 mls/hr Q12HR@0500,1700 IVPB 06/13/19 17:00 07/10/19 16:59 06/14/19 16:31 Levofloxacin 150 ml @ 100 mls/hr Q24H IVPB 06/13/19 18:00 06/17/19 17:59 06/14/19 17:14 Lorazepam (Ativan 2mg/ml 1ml) 0.5 mg Q4H PRN IV For Anxiety 06/13/19 12:00 06/17/19 11:59 Magnesium Hydroxide (Mom) 30 ml HSPRN PRN ORAL Constipation 06/13/19 13:15 07/10/19 13:14 Methylprednisolone Sodium Succinate (Solu-MEDROL) 30 mg EVERY 12 HOURS IVP 06/13/19 21:00 07/10/19 20:59 06/14/19 08:56 Metronidazole 100 ml @ 100 mls/hr Q8HR IVPB 06/13/19 14:00 06/17/19 21:59 06/14/19 14:10 Morphine Sulfate (Morphine Sulfate) 1 mg Q4H PRN IVP Mild Pain (Pain Scale 1-3) 06/13/19 12:00 06/17/19 11:59 Morphine Sulfate (Morphine Sulfate) 2 mg Q4H PRN IVP Moderate Pain (Pain Scale 4-6) 06/13/19 12:00 06/17/19 11:59 Morphine Sulfate (Morphine Sulfate) 4 mg Q4H PRN IVP Severe Pain (Pain Scale 7-10) 06/13/19 12:00 06/17/19 11:59 Nitroglycerin (Ntg) 0.4 mg Q5M PRN SL Prn Chest Pain 06/13/19 11:50 07/10/19 13:14 Ondansetron HCl (Zofran) 4 mg Q6H PRN IVP Nausea & Vomiting 06/13/19 12:00 07/10/19 11:59 Pantoprazole (Protonix) 40 mg DAILY IVP 06/14/19 09:00 07/11/19 09:59 06/14/19 08:55 Polyethylene Glycol (Miralax) 17 gm DAILYPRN PRN ORAL Constipation 06/13/19 12:00 07/10/19 11:59 Prochlorperazine (Compazine) 10 mg Q6H PRN IVP Nausea & Vomiting 06/13/19 12:00 07/10/19 11:59 Sodium Chloride 1,000 ml @ 100 mls/hr Q10H IV 06/13/19 11:45 07/10/19 15:14 06/14/19 08:56 Zolpidem Tartrate (Ambien) 5 mg HSPRN PRN ORAL Insomnia 06/13/19 21:00 06/17/19 20:59 Ruthie Mendenhall DO Jun 14, 2019 18:56
--- NOTE | 2019-06-14 19:18 | NUR ---
HAND-OFF: Report given to YAKELIN Sanches. Pt is in stable condition; plan of care endorsed.
--- NOTE | 2019-06-14 19:20 | NUR ---
NURSE NOTES: Received report from Jessica HAMLIN. Pt was resting ion the bed. NO acute distress noted. Call light is within reach. AO x4. Denies any pain. R
[2019-06-14 20:00] VITALS: BP 137/92
[2019-06-15] VITALS (7 sets, daily range): BP systolic 135–141; BP diastolic 60–89
[2019-06-15] MEDS: Albuterol/Ipratropium 3ml neb HHN SCH ×4 (00:36→18:43)
[2019-06-15] MEDS: levETIRAcetam 500mg/NS100ml 100 ML IVPB SCH ×2 (04:47→17:01)
[2019-06-15 07:04] LABS: BASOPHILS % (AUTO) 1.3 % (0.0-2.0); HEMATOCRIT 42.5 % (42.0-52.0); LYMPHOCYTES % (AUTO) 9.1 % (20.0-45.0); MEAN CORPUSCULAR VOLUME 88 FL (80-99); MONOCYTES % (AUTO) 4.9 % (1.0-10.0); NEUTROPHILS % (AUTO) 84.7 % (45.0-75.0); PLATELET COUNT 189 K/UL (150-450); RED BLOOD COUNT 4.85 M/UL (4.70-6.10); RED CELL DISTRIBUTION WIDTH 12.6 % (11.6-14.8); WHITE BLOOD COUNT 7.8 K/UL (4.8-10.8)
--- NOTE | 2019-06-15 07:15 | NUR ---
NURSE NOTES: Received report from JOSE HAMLIN. Pt was resting in the bed and breakfast setup. Patient is AAO x 4. Patient is breathing even and unlabored. Patient is on compliance monitor. Call light is within reach. Denies any pain. Will continue plan of care.
[2019-06-15 07:16] LABS: ANION GAP 11 mmol/L (5-15); BLOOD UREA NITROGEN 19 mg/dL (7-18); CARBON DIOXIDE 23 MMOL/L (21-32); CHLORIDE 105 MMOL/L (98-107); CREATININE 1.2 MG/DL (0.55-1.30); POTASSIUM 4.2 MMOL/L (3.5-5.1); SODIUM 139 MMOL/L (136-145)
--- NOTE | 2019-06-15 07:19 | NUR ---
HAND-OFF: Report given to Cole HAMLIN. Plan of care endorsed.
[2019-06-15] MEDS: Docusate 100mg cap ORAL SCH ×2 (08:15→20:36)
[2019-06-15] MEDS: Solu-MEDROL 40mg Inj IVP SCH (08:16)
[2019-06-15] MEDS: Pantoprazole Inj IVP SCH (08:17)
[2019-06-15] MEDS: Heparin 5000 units/ml inj SUBQ SCH ×2 (08:24→20:36)
--- NOTE | 2019-06-15 09:49 | NUR ---
CASE MANAGEMENT: REVIEW 06/13/2019 SI:COPD EXACERBATION. T 98.2 HR 66 RR 18 B/P 145/89 SATS 96% ON 2L/NC CL 108 GLU 143 IS: IVF @ 100 mL/HR SOLU MEDROL IV Q12H PROTONIX IV QD K DUR PO X1 KEPPRA IV Q12H LEVOFLOXACIN IV Q24H FLAGYL IV Q8H TELE DCP: PATIENT TO BE DISCHARGE TO HOME ONCE MEDICALLY CLEARED. PLAN OF CARE: EXTUBATED 06/12 CXR IMPRESSION: 1. Interval development of left lung base retrocardiac rounded opacity may be a consolidation. 2. Query tiny right pleural effusion. 06/14/2019 SI:COPD EXACERBATION. T 97.3 HR 81 RR 18 B/P 133/80 SATS 98% ON 2L/NC GLU 146 IS: IVF @ 100 mL/HR SOLU MEDROL IV Q12H PROTONIX IV QD KEPPRA IV Q12H LEVOFLOXACIN IV Q24H FLAGYL IV Q8H TELE DCP: PATIENT TO BE DISCHARGE TO HOME ONCE MEDICALLY CLEARED. 06/15/2019 SI:COPD EXACERBATION. T 98.1 HR 68 RR 20 B/P 135/60 SATS 100% ON 2L/NC BUN 19 GLU 164 IS: IVF @ 100 mL/HR SOLU MEDROL IV Q12H PROTONIX IV QD KEPPRA IV Q12H LEVOFLOXACIN IV Q24H FLAGYL IV Q8H TELE DCP: PATIENT TO BE DISCHARGE TO HOME ONCE MEDICALLY CLEARED. PLAN OF CARE: CXR 06/16
--- NOTE | 2019-06-15 10:00 | NUR ---
INSURANCE REVIEW FAXED TO [facility]: YESICA P- [phone] [id number] F- [phone]
--- NOTE | 2019-06-15 11:56 | Pulmonology Progress Note ---
Assessment/Plan Problems: (1) COPD exacerbation (2) Acute hypercapnic respiratory failure (3) Lactic acid acidosis (4) Epileptic seizure, generalized (5) Seizure disorder (6) Bipolar 1 disorder (7) HTN (hypertension) (8) CAD (coronary artery disease) Assessment/Plan Optimize pulmonary hygiene/mobilize as tolerated Titrate FiO2 to keep SaO2 > 90% RTC and PRN DUOnebs D/C SM, start Pred 60 and taper Abx per ID Monitor volumes and renal function Diet per PHYSICAL THERAPY DIRECTOR with STRICT aspiration precautions Hep SQ FC Subjective Allergies: Coded Allergies: PENICILLINS (Verified Allergy, Unknown, 07/04/16) Subjective AFVSS O2 needs stable transferred to [facility] Less cough less SOB no FC no CP Objective Last 24 Hour Vital Signs Date Time Temp Pulse Resp B/P (MAP) Pulse Ox O2 Delivery O2 Flow Rate FiO2 06/15/19 09:00 Nasal Cannula 2.0 06/15/19 08:46 98.1 06/15/19 08:00 97.9 71 20 140/82 (101) 97 06/15/19 07:39 79 06/15/19 05:33 98.1 68 20 135/60 (85) 100 06/15/19 04:00 74 06/15/19 04:00 98.1 68 20 135/60 (85) 100 06/15/19 00:36 68 16 99 Nasal Cannula 2.0 28 60 16 95 06/15/19 00:00 97.7 67 20 140/63 (88) 100 06/15/19 00:00 66 06/14/19 21:00 Nasal Cannula 2.0 06/14/19 20:00 98.2 87 20 137/92 (107) 99 87 06/14/19 20:00 96 06/14/19 18:47 97 Nasal Cannula 2.0 28 06/14/19 18:47 72 16 100 Nasal Cannula 2.0 28 68 16 97 06/14/19 16:00 77 06/14/19 16:00 96.5 75 20 120/61 (80) 100 75 06/14/19 12:55 82 16 100 Nasal Cannula 2.0 28 80 18 97 06/14/19 12:00 98.5 70 18 125/83 (97) 94 70 06/14/19 12:00 71 Intake and Output 06/14/19 06/15/19 19:00 07:00 Intake Total 120 ml 2810 ml Output Total 2200 ml 950 ml Balance -2080 ml 1860 ml Intake Oral 120 ml 240 ml IV Total 2570 ml Output Urine Total 2200 ml 950 ml # Voids 6 3 # Bowel Movements 1 General Appearance: WD/WN, no acute distress HEENT: normocephalic, atraumatic, anicteric, mucous membranes moist Respiratory/Chest: chest wall non-tender, lungs clear, normal breath sounds, no respiratory distress Cardiovascular: normal peripheral pulses, normal rate, regular rhythm Abdomen: normal bowel sounds, soft, non tender, no organomegaly, non distended , no mass Extremities: no cyanosis, no clubbing, no edema Laboratory Tests 06/15/19 05:45: White Blood Count 7.8, Red Blood Count 4.85, Hemoglobin 14.0L, Hematocrit 42.5, Mean Corpuscular Volume 88, Mean Corpuscular Hemoglobin 28.8, Mean Corpuscular Hemoglobin Concent 32.8, Red Cell Distribution Width 12.6, Platelet Count 189, Mean Platelet Volume 8.3, Neutrophils (%) (Auto) 84.7H, Lymphocytes (%) (Auto) 9.1L, Monocytes (%) (Auto) 4.9, Eosinophils (%) (Auto) 0.0, Basophils (%) (Auto ) 1.3, Sodium Level 139, Potassium Level 4.2, Chloride Level 105, Carbon Dioxide Level 23, Anion Gap 11, Blood Urea Nitrogen 19H, Creatinine 1.2, Estimat Glomerular Filtration Rate > 60, Glucose Level 164H, Calcium Level 9.0 Current Medications Medications (Trade) Dose Ordered Sig/Lara Route PRN Reason Start Time Stop Time Status Last Admin Dose Admin Acetaminophen (Tylenol) 650 mg Q4H PRN ORAL Mild Pain (Pain Scale 1-3) 06/13/19 12:00 07/13/19 11:59 06/15/19 08:16 Acetaminophen (Tylenol) 650 mg Q4H PRN ORAL T>100.5 06/13/19 13:15 07/10/19 13:14 06/14/19 17:15 Acetaminophen (Tylenol) 650 mg Q4H PRN RECTAL T>100.5 06/13/19 13:15 07/10/19 13:14 Al Hydroxide/Mg Hydroxide (Mylanta II) 30 ml Q6H PRN ORAL dyspepsia 06/13/19 12:00 07/10/19 11:59 Albuterol/ Ipratropium (Albuterol/ Ipratropium) 3 ml Q6HRT HHN 06/13/19 13:00 06/15/19 18:59 06/15/19 08:18 Bisacodyl (Dulcolax) 10 mg DAILYPRN PRN RECTAL Constipation 06/13/19 12:00 07/10/19 11:59 Dextrose (Dextrose 50%) 25 ml Q30M PRN IV Hypoglycemia 06/13/19 12:15 07/10/19 13:14 Dextrose (Dextrose 50%) 50 ml Q30M PRN IV Hypoglycemia 06/13/19 12:15 07/10/19 13:14 Diphenhydramine HCl (Benadryl) 25 mg Q6H PRN ORAL Itching/Pruritis 06/13/19 12:00 07/10/19 11:59 Docusate Sodium (Colace) 100 mg EVERY 12 HOURS ORAL 06/13/19 21:00 07/10/19 20:59 06/14/19 21:25 Heparin Sodium (Porcine) (Heparin 5000 units/ml) 5,000 units EVERY 12 HOURS SUBQ 06/13/19 21:00 07/10/19 15:50 06/15/19 08:24 Levetiracetam 100 ml @ 400 mls/hr Q12HR@0500,1700 IVPB 06/13/19 17:00 07/10/19 16:59 06/15/19 04:47 Levofloxacin 150 ml @ 100 mls/hr Q24H IVPB 06/13/19 18:00 06/17/19 17:59 06/14/19 17:14 Lorazepam (Ativan 2mg/ml 1ml) 0.5 mg Q4H PRN IV For Anxiety 06/13/19 12:00 06/17/19 11:59 Magnesium Hydroxide (Mom) 30 ml HSPRN PRN ORAL Constipation 06/13/19 13:15 07/10/19 13:14 Methylprednisolone Sodium Succinate (Solu-MEDROL) 30 mg EVERY 12 HOURS IVP 06/13/19 21:00 07/10/19 20:59 06/15/19 08:16 Metronidazole 100 ml @ 100 mls/hr Q8HR IVPB 06/13/19 14:00 06/17/19 21:59 06/15/19 05:49 Morphine Sulfate (Morphine Sulfate) 1 mg Q4H PRN IVP Mild Pain (Pain Scale 1-3) 06/13/19 12:00 06/17/19 11:59 Morphine Sulfate (Morphine Sulfate) 2 mg Q4H PRN IVP Moderate Pain (Pain Scale 4-6) 06/13/19 12:00 06/17/19 11:59 Morphine Sulfate (Morphine Sulfate) 4 mg Q4H PRN IVP Severe Pain (Pain Scale 7-10) 06/13/19 12:00 06/17/19 11:59 Nitroglycerin (Ntg) 0.4 mg Q5M PRN SL Prn Chest Pain 06/13/19 11:50 07/10/19 13:14 Ondansetron HCl (Zofran) 4 mg Q6H PRN IVP Nausea & Vomiting 06/13/19 12:00 07/10/19 11:59 Pantoprazole (Protonix) 40 mg DAILY IVP 06/14/19 09:00 07/11/19 09:59 06/15/19 08:17 Polyethylene Glycol (Miralax) 17 gm DAILYPRN PRN ORAL Constipation 06/13/19 12:00 07/10/19 11:59 Prochlorperazine (Compazine) 10 mg Q6H PRN IVP Nausea & Vomiting 06/13/19 12:00 07/10/19 11:59 Sodium Chloride 1,000 ml @ 100 mls/hr Q10H IV 06/13/19 11:45 07/10/19 15:14 06/15/19 10:36 Zolpidem Tartrate (Ambien) 5 mg HSPRN PRN ORAL Insomnia 06/13/19 21:00 06/17/19 20:59 Agapito Chino MD Jun 15, 2019 11:55
--- NOTE | 2019-06-15 14:23 | NUR ---
RD ASSESSMENT & RECOMMENDATIONS SEE CARE ACTIVITY FOR COMPLETE ASSESSMENT DAILY ESTIMATED NEEDS: Needs based on Pulmonary, cardiac/ 55kg calibrated bed scale 25-35 kcals/kg 6760-3518 total kcals 1-1.5 g protein/kg 55-83 g total protein 25-30 mL/kg 0789-2167 total fluid mLs NUTRITION DIAGNOSIS: Swallowing difficulty R/T respiratory status as evidenced by orally intubated, NPO at this time-> s/p extubation. PO DIET RECOMMENDATIONS: CCHO MED, LOW NA ADDITIONAL RECOMMENDATIONS: * Calibrated bedscale wt for accurate CBW (54.9kg per RD) * LAUNCH OPERATOR evaluation post extubation- h/o CVA, s/p extubation * Monitor lytes, replete as needed * Monitor BGs closely- h/o DM + on solumedrol Rec hypoglycemics for BG control * Glucerna 1 tetra etelvina BID in b/w meals + snacks
--- NOTE | 2019-06-15 17:11 | General Progress Note ---
Assessment/Plan Status: doing well Assessment/Plan: Assessment/Plan Assessment/Plan: 59 yo M PMH of pericarditis?, COPD, seizures was intubated in ED for acute hypoxia # Acute Hypoxic and Hypercapnic Respiratory failure s/p Intubation 06/10 on admission, status post extubation 06/12/2019 # COPD exacerbation - ID consult And antibiotics per ID: s/p Vanco, continue Levaquin and Flagyl - f/u cultures and repeat cxr in am reviewed - echo within normal limits -Continue steroids, wean per pulmonary recommendations, prednisone 60 mg daily and will plan on Medrol dose pack to discharge - DC in AM # Lactic acidosis worsening, ddx: seizures, sepsis, s.e. of breathing treatment, ; resolved - continue to monitor #Encephalopathy secondary to multifactorial including metabolic + seizure history, resolved -Continue current management # Seizure d/o - EEG, follow-up results: Reviewed no ictal changes - cont keppra - neuro consult appreciate recs - ct head negative # Hyponatremia, resolved - IV - ctm # Hypomagnesemia - replace - ctm, replace FULL CODE 45 minutes of critical care time spent evaluating patient's vitals, exam, labs, imaging, interpretation of results, coordination of care among many specialists. Subjective ROS Limited/Unobtainable: No Allergies: Coded Allergies: PENICILLINS (Verified Allergy, Unknown, 07/04/16) All Systems: reviewed and negative except above Objective Last 24 Hour Vital Signs Date Time Temp Pulse Resp B/P (MAP) Pulse Ox O2 Delivery O2 Flow Rate FiO2 06/15/19 16:01 106 06/15/19 16:00 97.7 86 21 140/74 (96) 97 06/15/19 13:39 81 18 100 Room Air 76 18 97 06/15/19 12:01 70 06/15/19 12:00 97.9 77 19 141/89 (106) 99 06/15/19 09:00 Nasal Cannula 2.0 06/15/19 08:46 98.1 06/15/19 08:28 87 18 100 Room Air 21 84 20 96 06/15/19 08:17 96 Room Air 06/15/19 08:00 97.9 71 20 140/82 (101) 97 06/15/19 07:39 79 06/15/19 05:33 98.1 68 20 135/60 (85) 100 06/15/19 04:00 74 06/15/19 04:00 98.1 68 20 135/60 (85) 100 06/15/19 00:36 68 16 99 Nasal Cannula 2.0 28 60 16 95 06/15/19 00:00 97.7 67 20 140/63 (88) 100 06/15/19 00:00 66 06/14/19 21:00 Nasal Cannula 2.0 06/14/19 20:00 98.2 87 20 137/92 (107) 99 87 06/14/19 20:00 96 06/14/19 18:47 97 Nasal Cannula 2.0 28 06/14/19 18:47 72 16 100 Nasal Cannula 2.0 28 68 16 97 Intake and Output 06/14/19 06/15/19 19:00 07:00 Intake Total 120 ml 2810 ml Output Total 2200 ml 950 ml Balance -2080 ml 1860 ml Intake Oral 120 ml 240 ml IV Total 2570 ml Output Urine Total 2200 ml 950 ml # Voids 6 3 # Bowel Movements 1 Laboratory Tests 06/15/19 05:45: White Blood Count 7.8, Red Blood Count 4.85, Hemoglobin 14.0L, Hematocrit 42.5, Mean Corpuscular Volume 88, Mean Corpuscular Hemoglobin 28.8, Mean Corpuscular Hemoglobin Concent 32.8, Red Cell Distribution Width 12.6, Platelet Count 189, Mean Platelet Volume 8.3, Neutrophils (%) (Auto) 84.7H, Lymphocytes (%) (Auto) 9.1L, Monocytes (%) (Auto) 4.9, Eosinophils (%) (Auto) 0.0, Basophils (%) (Auto ) 1.3, Sodium Level 139, Potassium Level 4.2, Chloride Level 105, Carbon Dioxide Level 23, Anion Gap 11, Blood Urea Nitrogen 19H, Creatinine 1.2, Estimat Glomerular Filtration Rate > 60, Glucose Level 164H, Calcium Level 9.0 Height (Feet): 5 Height (Inches): 5.00 Weight (Pounds): 130 General Appearance: WD/WN EENT: PERRL/EOMI Neck: non-tender Cardiovascular: normal rate Respiratory/Chest: chest wall non-tender Abdomen: non tender Extremities: non-tender Neurologic: padded products inspector trimmer II-XII grossly normal Skin: normal pigmentation Patricio Hernández MD Jun 15, 2019 17:11
--- NOTE | 2019-06-15 18:32 | Neurology Progress Note ---
Interim History Interim History Interim History Mr. Singh feels very well. He has been able to breathe well. He has been seizure-free. He denies any new neurological problems. He continues to be weak on the right side but he feels that the weakness is close to its baseline. He walked with the physical therapist today. He says he is going home tomorrow. Review of Systems Neuro Review of Systems Benign. Objective Physical Exam Last Vital Signs Date Time Temp Pulse Resp B/P (MAP) Pulse Ox O2 Delivery O2 Flow Rate FiO2 06/15/19 16:01 106 06/15/19 16:00 97.7 21 140/74 (96) 97 06/15/19 13:39 Room Air 06/15/19 09:00 2.0 06/15/19 08:28 21 Laboratory Tests Test 06/15/19 05:45 White Blood Count 7.8 K/UL (4.8-10.8) Red Blood Count 4.85 M/UL (4.70-6.10) Hemoglobin 14.0 G/DL (14.2-18.0) L Hematocrit 42.5 % (42.0-52.0) Mean Corpuscular Volume 88 FL (80-99) Mean Corpuscular Hemoglobin 28.8 PG (27.0-31.0) Mean Corpuscular Hemoglobin Concent 32.8 G/DL (32.0-36.0) Red Cell Distribution Width 12.6 % (11.6-14.8) Platelet Count 189 K/UL (150-450) Mean Platelet Volume 8.3 FL (6.5-10.1) Neutrophils (%) (Auto) 84.7 % (45.0-75.0) H Lymphocytes (%) (Auto) 9.1 % (20.0-45.0) L Monocytes (%) (Auto) 4.9 % (1.0-10.0) Eosinophils (%) (Auto) 0.0 % (0.0-3.0) Basophils (%) (Auto) 1.3 % (0.0-2.0) Sodium Level 139 MMOL/L (136-145) Potassium Level 4.2 MMOL/L (3.5-5.1) Chloride Level 105 MMOL/L (98-107) Carbon Dioxide Level 23 MMOL/L (21-32) Anion Gap 11 mmol/L (5-15) Blood Urea Nitrogen 19 mg/dL (7-18) H Creatinine 1.2 MG/DL (0.55-1.30) Estimat Glomerular Filtration Rate > 60 mL/min (>60) Glucose Level 164 MG/DL (74-106) H Calcium Level 9.0 MG/DL (8.5-10.1) Neurologic Exam Objective PHYSICAL EXAMINATION: GENERAL: He is a well-developed relatively well-nourished black gentleman, lying in bed, in no acute distress. HEAD: Normocephalic and atraumatic. EENT: Examination benign. NECK: No neck rigidity was observed. NEUROLOGICAL EXAMINATION: MENTAL STATUS EXAMINATION: He was awake and alert. He was oriented to self, 2018 hospital. He was unable to tell me the month or name of the hospital. He was able to recall 3/3 words immediately, but could only remember 2/3 in 1 minute and 3 minutes. He knew that Laila is President, but could not remember Presidents prior to that. His mathematical skills were impaired. His visuospatial function was also impaired. SPEECH: He had no dysarthria. LANGUAGE: He had an anomia for low and mid frequency words. CRANIAL NERVE EXAMINATION: II: The visual velasquez were intact to confrontation testing. III, IV & : The external ocular movements were full and the pupils 3 mm in diameter, equal, round, regular, and reactive to light. V: He had normal facial sensations and the temporales, masseters, and pterygoids functioned normally. VII: He had a mild right seventh central facial paresis. VIII: He was able to hear and had no nystagmus. IX: The palate moves symmetrically on phonation. X: He had no hoarseness of voice. XI: The sternocleidomastoids and trapezii did function. XII: Could not be tested adequately. MOTOR SYSTEM: The tone was minimally increased with a mild degree of spasticity on the right side. Examination of muscle mass revealed no focal wasting. Examination of power revealed G 5/5 power except for G 4+/5 power in the right finger extensors and iliopsoas. SENSORY EXAMINATION: He had intact sensations to pinprick and light touch. He was unable to cooperate for other sensory modalities. REFLEXES: 2+ on the right and 1+ on the left in the biceps, triceps, brachioradialis, and knees, 0 at both ankles. The plantar responses were flexor bilaterally. COORDINATION: He performed well on [id number] testing. STANCE & GAIT: Were deferred. Impression/Recommendations Diagnostic Impression 1. Mr. Kevin Singh is a 59-year-old, right-handed, black gentleman, with a past history of COPD, hypertension, diabetes mellitus, dyslipidemia, cerebrovascular disease with prior stroke associated with right-sided weakness, and a focal seizure disorder with secondary generalization for which he takes Keppra 500 mg twice a day, with good seizure control. He was hospitalized in the early hours of 06/10/2019 after he developed increasing shortness of breath and he became significantly more short of breath and had to be intubated and artificially ventilated. 2. He feels very well. He has been able to breathe well. He has been seizure- free. He denies any new neurological problems. He continues to be weak on the right side but he feels that the weakness is close to its baseline. He walked with the physical therapist today. He says he is going home tomorrow. 3. On neurological examination, at this time, he is disoriented to the month and name of the hospital. He has significant problems with recent and remote memory, visuospatial function, higher cognitive function and language. 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 He does have a right seventh central facial paresis , a right hemiparesis involving the finger extensors and iliopsoas, and brisker deep tendon reflexes on the right side compared to the left. 4. The EEG performed on 06/10/2019 revealed an encephalopathy of a moderate degree with a definite toxic component as evidenced by generalized spindle-like activity but no interictal or ictal discharges. 5. The patient's history and neurological examination are most consistent with an acute exacerbation of COPD with respiratory failure, which has now resolved. 6. He does have a prior history of stroke with right hemiparesis. 7. He also has a prior history of a post stroke seizure disorder and tells me that his last seizure was approximately a year and a half ago. From what he describes he has focal seizures with secondary generalization. 8. His present altered mental state was related to an encephalopathy due to respiratory failure, the underlying structural brain disease related to the stroke, and the mind altering drugs that he was getting. His encephalopathy is resolving. Recommendations 1. Continue present management. 2. Continue Keppra 500 mg every 12 hours. 3. Treatment of respiratory failure as per Dr. Chino. 4. Observe. Royer Corona M.D., M.S.P.H. Royer Corona MD Jun 15, 2019 18:32
--- NOTE | 2019-06-15 19:15 | NUR ---
HAND-OFF: Report given to YAKELIN Crain.
--- NOTE | 2019-06-15 19:21 | NUR ---
NURSE NOTES: Received report from YAKELIN Galvan. Patient in bed awake in high fowlers position showing no signs of acute distress. Respiration even and non labored on ra. No sob noted. IV line on right FA 20g patent and intact. Seizure precaution observed, bed side rails padded x2. Call light within reach. Bed in lowest position, wheels locked and alarm on. All needs attended and met. Will continue plan of care.
--- NOTE | 2019-06-15 20:21 | NUR ---
NURSE NOTES: Pt. stated he wanted to throw all his clothes to the trash stating he cant stand the smell. Pt. clothes thrown to trash and belongings check list signed by pt.
[2019-06-16] VITALS: BP 137/86
[2019-06-16 04:00] VITALS: BP 139/88
[2019-06-16] MEDS: levETIRAcetam 500mg/NS100ml 100 ML IVPB SCH (05:27)
--- NOTE | 2019-06-16 07:33 | NUR ---
HAND-OFF: Report given to YAKELIN Lopez.
--- NOTE | 2019-06-16 07:38 | NUR ---
NURSE NOTES: Report received from YAKELIN Crain. Pt shows no signs of distress, A+Ox4, denies pain/SOB. Respirations are even and unlabored on room air. IV site is patent and running fluids @ prescribed rate. Bed is at lowest position, brakes engaged, siderails x2 bed alarm on, and call light within reach. Pt is in stable condition; will continue to monitor.
[2019-06-16 07:57] VITALS: BP 155/97
--- NOTE | 2019-06-16 08:22 | Pulmonology Progress Note ---
Assessment/Plan Problems: (1) COPD exacerbation (2) Acute hypercapnic respiratory failure (3) Lactic acid acidosis (4) Epileptic seizure, generalized (5) Seizure disorder (6) Bipolar 1 disorder (7) HTN (hypertension) (8) CAD (coronary artery disease) Assessment/Plan CXR Optimize pulmonary hygiene/mobilize as tolerated PRN O2 RTC and PRN DUOnebs Dec Pred to 40 and taper Abx per ID Monitor volumes and renal function Diet per GARBAGE COLLECTOR with STRICT aspiration precautions Hep SQ FC Subjective Allergies: Coded Allergies: PENICILLINS (Verified Allergy, Unknown, 07/04/16) Subjective AFVSS on RA Less cough no SOB no FC no CP Objective Last 24 Hour Vital Signs Date Time Temp Pulse Resp B/P (MAP) Pulse Ox O2 Delivery O2 Flow Rate FiO2 06/16/19 07:57 97.4 94 20 155/97 (116) 97 06/16/19 04:00 68 06/16/19 04:00 98.3 81 18 139/88 (105) 98 06/16/19 00:00 79 06/16/19 00:00 98.0 82 18 137/86 (103) 97 06/15/19 21:00 Room Air 06/15/19 20:00 83 06/15/19 20:00 97.0 86 18 139/88 (105) 97 06/15/19 18:46 98 Room Air 21 06/15/19 18:46 78 16 100 Nasal Cannula 2.0 28 70 16 98 06/15/19 16:01 106 06/15/19 16:00 97.7 86 21 140/74 (96) 97 06/15/19 13:39 81 18 100 Room Air 76 18 97 06/15/19 12:01 70 06/15/19 12:00 97.9 77 19 141/89 (106) 99 06/15/19 09:00 Nasal Cannula 2.0 06/15/19 08:46 98.1 06/15/19 08:28 87 18 100 Room Air 21 84 20 96 Intake and Output 06/15/19 06/16/19 19:00 07:00 Intake Total 1690 ml Output Total 1150 ml Balance 540 ml Intake Oral 240 ml Free Water 300 ml IV Total 1100 ml Tube Feeding 0 ml Other 50 ml Output Urine Total 950 ml Stool Total 200 ml # Voids 3 # Bowel Movements 1 General Appearance: WD/WN, no acute distress HEENT: normocephalic, atraumatic, anicteric, mucous membranes moist Respiratory/Chest: chest wall non-tender, lungs clear, normal breath sounds, no respiratory distress, no accessory muscle use Cardiovascular: normal peripheral pulses, normal rate, regular rhythm Abdomen: normal bowel sounds, soft, non tender, no organomegaly, non distended , no mass Extremities: no cyanosis, no clubbing, no edema Current Medications Medications (Trade) Dose Ordered Sig/Lara Route PRN Reason Start Time Stop Time Status Last Admin Dose Admin Acetaminophen (Tylenol) 650 mg Q4H PRN ORAL Mild Pain (Pain Scale 1-3) 06/13/19 12:00 07/13/19 11:59 06/15/19 08:16 Acetaminophen (Tylenol) 650 mg Q4H PRN ORAL T>100.5 06/13/19 13:15 07/10/19 13:14 06/14/19 17:15 Acetaminophen (Tylenol) 650 mg Q4H PRN RECTAL T>100.5 06/13/19 13:15 07/10/19 13:14 Al Hydroxide/Mg Hydroxide (Mylanta II) 30 ml Q6H PRN ORAL dyspepsia 06/13/19 12:00 07/10/19 11:59 Bisacodyl (Dulcolax) 10 mg DAILYPRN PRN RECTAL Constipation 06/13/19 12:00 07/10/19 11:59 Dextrose (Dextrose 50%) 25 ml Q30M PRN IV Hypoglycemia 06/13/19 12:15 07/10/19 13:14 Dextrose (Dextrose 50%) 50 ml Q30M PRN IV Hypoglycemia 06/13/19 12:15 07/10/19 13:14 Diphenhydramine HCl (Benadryl) 25 mg Q6H PRN ORAL Itching/Pruritis 06/13/19 12:00 07/10/19 11:59 Docusate Sodium (Colace) 100 mg EVERY 12 HOURS ORAL 06/13/19 21:00 07/10/19 20:59 06/14/19 21:25 Heparin Sodium (Porcine) (Heparin 5000 units/ml) 5,000 units EVERY 12 HOURS SUBQ 06/13/19 21:00 07/10/19 15:50 06/15/19 20:36 Levetiracetam 100 ml @ 400 mls/hr Q12HR@0500,1700 IVPB 06/13/19 17:00 07/10/19 16:59 06/16/19 05:27 Levofloxacin 150 ml @ 100 mls/hr Q24H IVPB 06/13/19 18:00 06/17/19 17:59 06/15/19 18:12 Lorazepam (Ativan 2mg/ml 1ml) 0.5 mg Q4H PRN IV For Anxiety 06/13/19 12:00 06/17/19 11:59 Magnesium Hydroxide (Mom) 30 ml HSPRN PRN ORAL Constipation 06/13/19 13:15 07/10/19 13:14 Metronidazole 100 ml @ 100 mls/hr Q8HR IVPB 06/13/19 14:00 06/17/19 21:59 06/16/19 06:24 Morphine Sulfate (Morphine Sulfate) 1 mg Q4H PRN IVP Mild Pain (Pain Scale 1-3) 06/13/19 12:00 06/17/19 11:59 Morphine Sulfate (Morphine Sulfate) 2 mg Q4H PRN IVP Moderate Pain (Pain Scale 4-6) 06/13/19 12:00 06/17/19 11:59 Morphine Sulfate (Morphine Sulfate) 4 mg Q4H PRN IVP Severe Pain (Pain Scale 7-10) 06/13/19 12:00 06/17/19 11:59 Nitroglycerin (Ntg) 0.4 mg Q5M PRN SL Prn Chest Pain 06/13/19 11:50 07/10/19 13:14 Ondansetron HCl (Zofran) 4 mg Q6H PRN IVP Nausea & Vomiting 06/13/19 12:00 07/10/19 11:59 Pantoprazole (Protonix) 40 mg DAILY IVP 06/14/19 09:00 07/11/19 09:59 06/15/19 08:17 Polyethylene Glycol (Miralax) 17 gm DAILYPRN PRN ORAL Constipation 06/13/19 12:00 07/10/19 11:59 Prednisone (predniSONE) 60 mg DAILY ORAL 06/16/19 09:00 07/16/19 08:59 Prochlorperazine (Compazine) 10 mg Q6H PRN IVP Nausea & Vomiting 06/13/19 12:00 07/10/19 11:59 Sodium Chloride 1,000 ml @ 100 mls/hr Q10H IV 06/13/19 11:45 07/10/19 15:14 06/15/19 21:42 Zolpidem Tartrate (Ambien) 5 mg HSPRN PRN ORAL Insomnia 06/13/19 21:00 06/17/19 20:59 Agapito Chino MD Jun 16, 2019 08:22
[2019-06-16] MEDS: Docusate 100mg cap ORAL SCH (08:53)
[2019-06-16] MEDS: Pantoprazole Inj IVP SCH (08:54)
[2019-06-16] MEDS: Heparin 5000 units/ml inj SUBQ SCH (08:56)
--- NOTE | 2019-06-16 09:20 | NUR ---
RADIOLOGY DEPT., CHEST X-RAY DONE.-P.DYE
--- NOTE | 2019-06-16 10:15 | NUR ---
CASE MANAGEMENT: REVIEW 06/16/2019 SI:COPD EXACERBATION. T 97.4 HR 94 RR 20 B/P 155/97 SATS 97% ON RA NO LABS TODAY IS: IVF @ 100 mL/HR PREDNISONE PO QD PROTONIX IV QD KEPPRA IV Q12H LEVOFLOXACIN IV Q24H FLAGYL IV Q8H TELE DCP: PATIENT TO BE DISCHARGE TO HOME ONCE MEDICALLY CLEARED.
--- NOTE | 2019-06-16 10:24 | NUR ---
INSURANCE REVIEW FAXED TO [facility]: [place] P- [phone] F- [phone]
--- NOTE | 2019-06-16 10:30 | Discharge Instructions ---
Discharge Instructions Discharge Instructions Diet: 2 GM sodium (low sodium) Resume Normal Activity?: Yes Follow Up Orders Make appointment with Dr. Van Chino in 2 weeks [phone] For Congestive Heart Failure Reminder Report to your physician any weight gain of 5 pounds or more in one week. Patricio Hernández MD Jun 16, 2019 10:30
--- NOTE | 2019-06-16 10:44 | Discharge Summary ---
Discharge Summary Hospital Course Date of Admission Jun 10, 2019 at 11:03 Date of Discharge Jun 16, 2019 Admitting Diagnosis COPD exacerbation HPI Kevin Singh is a 59 year old male who was admitted on Jun 10, 2019 at 11:03 for Chronic Obstructive Pulmonary Disease Exacerbation Hospital Course 59 yo M PMH of pericarditis?, COPD, seizures was intubated in ED for acute hypoxic and hypercapnic respiratory failure s/p Intubation 06/10 on admission, status post extubation 06/12/2019 # COPD exacerbation, Per ID: s/p Vanco, continue Levaquin and Flagyl and now transitioned to oral Levaquin at discharge. - f/u cultures and repeat cxr in am reviewed. Dr. Chino recommended CT CHEST prior to discharge and shortly after completion of the study the patient and his family requested to leave AMA Against Medical Advice. Phone number for Dr. Van Chino was given for follow up appointment in 2 weeks. - echo within normal limits -Continue steroids, wean over the next 5 days prescribed. #Encephalopathy secondary to multifactorial including metabolic + seizure history, resolved -Continue current management and neurology consultation with Dr. Corona completed. - EEG reviewed. No new changes and patient will continue on Keppra 500 mg BID # Hyponatremia, resolved FULL CODE 45 minutes of critical care time spent evaluating patient's vitals, exam, labs, imaging, interpretation of results, coordination of care among many specialists. Discharge Medications Continued Medications: Amlodipine Besylate (Norvasc) 10 Mg Tablet 10 MG ORAL DAILY, TAB (This prescription has been renewed) Aspirin* (Aspir 81*) 81 Mg Tablet.dr 81 MG ORAL DAILY, TAB (This prescription has been renewed) Atorvastatin Calcium* (Atorvastatin Calcium*) 20 Mg Tablet Unknown Dose ORAL BEDTIME, TAB (This prescription has been renewed) Docusate Sodium* (Colace*) 100 Mg Capsule 100 MG ORAL THREE TIMES A DAY, #30 CAP Ferrous Sulfate (Ferrous Sulfate) 15 Mg/1 Ml Drops Unknown Dose PO, ML (This prescription has been renewed) Levetiracetam (Keppra) 500 Mg Tablet Unknown Dose ORAL EVERY 12 HOURS, #60 TAB 0 Refills (This prescription has been renewed) Discontinued Medications: Hydrochlorothiazide* (Hydrochlorothiazide*) 25 Mg Tablet 25 MG ORAL DAILY, TAB Hydrocortisone Acetate* (Anusol-Hc*) 25 Mg Supp.rect 1 SUPP RECTAL TWICE A DAY, #10 SUPP Ibuprofen* (Motrin*) 600 Mg Tablet 600 MG ORAL Q8H PRN for For Pain, #30 TAB 0 Refills Levetiracetam (Keppra) 500 Mg Tablet 500 MG ORAL EVERY 12 HOURS, #60 TAB 0 Refills Levetiracetam (Levetiracetam) 1,000 Mg Tablet 1000 MG ORAL TWICE A DAY, #60 TAB 0 Refills Discharge Condition Upon Discharge: stable Discharge Disposition Patient was discharged to home AMA Discharge Diagnoses: (1) CAD (coronary artery disease) (2) HTN (hypertension) (3) Epileptic seizure, generalized (4) COPD exacerbation (5) Acute hypercapnic respiratory failure Patricio Hernández MD Jun 16, 2019 10:44
--- NOTE | 2019-06-16 10:44 | NUR ---
NURSE NOTES: Pt was to be discharged pending results of the CT chest. Patient and sister said they could not wait for the results because the sister had to go to work. Dr. Hernández and I explained risks to patient and sister. They decided to go AMA. AMA paper signed. Patient leaving with all belongings. Patient signed belongings list. teletypesetter monitor, wristband, and IV removed. Pt is stable and walked out with sister after signing AMA form @ [id number].
--- NOTE | 2019-06-16 10:45 | Diagnostic Imaging Report ---
Indication: Cough Technique: One view of the chest Comparison: 06/13/2019 Findings: Unchanged rounded opacity at the left lung base. The remainder of the lungs and pleural spaces are clear. Heart size is normal Impression: Unchanged rounded left lung base opacity, may reflect a focal infiltrate. Follow-up to resolution is recommended No significant interim exchange specialist 3 days Findings discussed by phone with Dr. Chino at the time of interpretation
--- NOTE | 2019-06-16 10:45 | Diagnostic Imaging Report ---
Clinical Indication: Apparent mass at left lung base on earlier chest radiograph Technique: Spiral acquisitions obtained through the chest. No IV contrast utilized, per referring physician request. Multiplanar reconstructions generated. Total dose length product 505.53 mGycm. CTDIvol(s) 13.12 mGy. Dose reduction achieved using automated exposure control Comparison: Reference made to recent prior chest radiographs Findings: There is a small left-sided Bochdalek hernia which contains only fat at the posterior medial left hemidiaphragm. This accounts for the rounded opacity demonstrated on prior chest radiographs. There is trace pleural fluid on the right. There are posterior dependent atelectatic changes on the right. There is some linear scarring or atelectasis at the right lung base as well. There is mild generalized bronchial wall thickening. The remainder of the lungs and pleural spaces are clear. Normal heart size. No pericardial effusion. No mediastinal or hilar mass or adenopathy. The thyroid is unremarkable. No axillary or chest wall mass or adenopathy. Included upper abdominal anatomy is remarkable for high attenuation in the region of the renal pyramids suggestive of medullary nephrocalcinosis. Calcified granulomatous nodes are seen in the peripancreatic region. There are mild degenerative proliferative changes of the lower thoracic spine. Impression: Small left-sided fat-containing Bochdalek hernia. This accounts for the left lung base abnormality demonstrated on recent chest radiographs Trace right pleural fluid. Basilar dependent atelectatic changes Mild generalized bronchial wall thickening, could indicate chronic bronchitis changes High attenuation in the region of the renal pyramids may reflect medullary nephrocalcinosis Incidental finding of calcified granulomatous nodes in the peripancreatic region, degenerative spondylosis The CT scanner at [facility] is accredited by the [employer] and the scans are performed using protocols designed to limit radiation exposure to as low as reasonably achievable to attain images of sufficient resolution adequate for diagnostic evaluation.
--- NOTE | 2019-06-17 14:50 | NUR ---
INSURANCE DISCHARGE SUMMARY HAS BEEN FAXED TO: [facility]: [place] P- [phone] F- [phone]
--- NOTE | 2019-06-18 00:06 | Coder Physician Query ---
PLEASE COMPLETE THE DOCUMENT BEFORE SIGNING Dear Dr. Patricio Hernández Date: 06/17/19 Qi Specialist/CDS Name: Jamia, CCS Exercise your independent professional judgment when responding to query. Question asked do not imply a particular answer is desired/expected Clinical Documentation States: "Sepsis" documented in ..... H&P - Lactic acidosis worsening, ddx: seizures, sepsis, s.e. of breathing treatment, The patient has possible sepsis with elevated lactic acid leve Clinical Findings Show: Consult by I.D - The patient has possible sepsis with elevated lactic acid level. The patient also has respiratory failure, tachycardia, SIRS criteria Meds: vancomycin, cefepime, flagyl, azithromycin Labs: WBC 06/10 8.2, 06/11 9.4, 06/12 11.5, 06/13 10.4, 06/14 7.3 Blood culture: NO GROWTH SEPSIS WAS MENTIONED EARLY IN THE RECORD, NOT MENTIONED ON DISCHARGE SUMMARY. WAS SEPSIS ( )RULED IN ( ) RULED OUT (x ) UNABLE TO DETERMINE Please also document in your Progress Notes and/or Discharge Summary and indicate if the condition was present on admission. Patricio Hernández M.D. Date & Time [facility]
== END 2019-06-16 10:35 | disposition left against medical advice (07) | DRG 133 ==
LOC: EDBD 09:05 → EMR 09:35 → ICU 11:03 → EDBEDREQ 11:54 → EDBEDREQSVC 15:46 → EDBEDREQ 15:46 → 2E 06-13 11:37
PROC: 5A1945Z Respiratory Ventilation, 24-96 Consecutive Hours (ICD-10-PCS; principal; 2019-06-10)
PROC: 0BH17EZ Insertion of Endotracheal Airway into Trachea, Via Natural or Artificial Opening (ICD-10-PCS; 2019-06-10)
DX: J96.02 Acute respiratory failure with hypercapnia (principal); J96.01 Acute respiratory failure with hypoxia; G93.41 Metabolic encephalopathy; J44.1 Chronic obstructive pulmonary disease with (acute) exacerbation; J18.9 Pneumonia, unspecified organism; Z88.0 Allergy status to penicillin; E87.1 Hypo-osmolality and hyponatremia; E83.42 Hypomagnesemia; I25.10 Atherosclerotic heart disease of native coronary artery without angina pectoris; I10 Essential (primary) hypertension; G40.409 Other generalized epilepsy and epileptic syndromes, not intractable, without status epilepticus; I69.351 Hemiplegia and hemiparesis following cerebral infarction affecting right dominant side; E11.9 Type 2 diabetes mellitus without complications; E78.5 Hyperlipidemia, unspecified; F31.9 Bipolar disorder, unspecified
CPT/HCPCS: 31500; 36415; 36600; 71045; 71250; 74018; 80048; 80053; 80069; 80076; 80202; 81003; 82550; 82553; 82803; 83605; 83735; 83880; 84100; 84484; 85007; 85025; 87040; 87070; 87205; 93005; 93306; 94002; 94003; 94640; 94664; 95819; 96365; 96367; 96375; 99291; J2405; J7620; J8499